=== PATIENT | female | born 1985 | race Caucasian/White ===

== ENCOUNTER 2017-07-03 09:47 | Emergency (ER) | payer OTHER, SELFPAY | END 2017-07-03 10:39 | disposition home or self-care (01) | PROVIDERS: Emergency Provider Nurse Practitioner Family; Family Provider Family Medicine; Visit Provider Nurse Practitioner Family | DX: H57.8 Other specified disorders of eye and adnexa (principal) | CPT/HCPCS: 99201 ==

== ENCOUNTER 2021-03-02 18:49 | Emergency (ER) | payer BC, SELFPAY ==
[2021-03-02 18:50] VITALS: BP 140/72; PULSE 88; RESP 20; TEMP 36.7; O2SAT 100; BMI 16.7
--- NOTE | 2021-03-02 19:55 | HMH.EDUTC ---
[facility] [place] Disposition Clinical Impression: Exposure to COVID-19 virus Disposition: Home, Self-Care Condition on Discharge: Good Instructions: DI for COVID-19 (Suspected or Confirmed ), Preventing the Spread of Coronavirus Discharge Instructions Additional Instructions: Drink plenty of fluids. Take tylenol for pain or fever. Return if you begin to have difficulty breathing. Follow up with your regular doctor. GO TO THE ER FOR ANY WORSENING SYMPTOMS Quarantine until you know the results of your covid-19 test. If it is positive, the health department should call you and give you further instructions about your length of Quarantine and other things. Notify your school or workplace of your results and follow their instructions regarding return to work/school. Referrals: Inge Daniels MD [Primary Care Provider] - Time of Disposition: 19:56 Medical Decision Making - Medical Records Medical records reviewed: No: I reviewed the patient's medical records. - Faizan Inquiry Pt receiving controlled substance: No Vital Signs: 03/02/21 18:50 03/02/21 20:03 Temperature 98.1 F 98.1 F Temperature Source Oral Oral Pulse Rate 88 Pulse Rate [Left Radial] 88 Respiratory Rate 20 16 Blood Pressure 140/72 Blood Pressure [Right Arm] 140/72 Blood Pressure Mean [Right Arm] 94 Blood Pressure Source Automatic Cuff Blood Pressure Source [Right Arm] Automatic Cuff Blood Pressure Position Sitting Blood Pressure Position [Right Arm] Sitting 02 Sat by Pulse Oximetry 100 Oxygen Delivery Method Room Air Room Air [facility] [place] HPI - General Stated complaint: covid test Time Seen by Provider: 03/02/21 19:55 Mode of Arrival: Ambulatory Source of Information: Patient Limitations: No Limitations Description of Symptoms (Recalled from Triage Doc. by RN): covid exposure, no symptoms HEENT Symptoms (Recalled from RN notes): No Resp Symptoms (Recalled from RN notes): No Skin Symptoms (Recalled from RN notes): No MS Symptoms (Recalled from RN notes): No Functional Status (Recalled from RN notes): wnl - History of Present Illness Provider Complaint: She was exposed to covid 3 days ago by her being around her mother and then her mother got sick with it. She denies any symptoms - Related Data Home Medications Medication Instructions Recorded Confirmed duloxetine 60 mg capsule,delayed 60 mg PO ONCE 09/08/17 08/07/18 release Previous Rx's Medication Instructions Recorded Azithromycin [Z-Sundeep 250mg Tab*] 250 mg PO UD DOSE PK #6 tab 08/07/18 Ibuprofen [Ibuprofen 600mg 600 mg PO Q6HP PRN #30 tab 08/07/18 Tablet] Ondansetron [Zofran 4mg ODT] 4 mg PO Q8HP PRN #20 tab.rapdis 08/07/18 Azithromycin [Z-Sundeep 250mg Tab*] 250 mg PO UD DOSE PK #6 tab 01/05/19 methylPREDNISolone [Medrol] 4 mg PO DIRECTED 6 Days #21 01/05/19 tab.ds.pk Nitrofurantoin Monohyd/M-Cryst 100 mg PO BID #20 cap 02/14/19 [Macrobid 100 mg Capsule] Phenazopyridine HCl [Pyridium 200 pow PO TID #6 tab 02/14/19 200mg Tablet] Allergies Allergy/AdvReac Type Severity Reaction Status Date / Time No Known Allergies Allergy Verified 04/06/18 08:19 - Worker's Comp Is this a Worker's Comp case?: No [facility] History - Hepatitis A Screen Drug use history?: No High risk sexual behaviors?: No History of sexually transmitted infection?: No Currently employed?: No Childcare worker?: No Do you have indoor plumbing?: Yes Do you have electricity?: Yes Attestation statement:: This patient has been screened for Hepatitis A risk factors. I have reviewed the patient's past medical history: Yes Medical History: Reports:: Anxiety Denies:: Asthma, Cancer, Depression, Diabetes Mellitus Type 1, Diabetes Mellitus Type 2, MRSA Other Surgeries: Yes: , Other Amputation: No Fractures: No Comment: 2 breast biopsy - Social History Smoking Status: Current every day smoker Tobacco Type: cigarettes # Packs/Day (cigarettes): 1
[2021-03-02 20:03] VITALS: BP 140/72; PULSE 88; RESP 16; TEMP 36.7; O2SAT 98
== END 2021-03-02 20:04 | disposition home or self-care (01) ==
PROVIDERS: Emergency Provider Nurse Practitioner Family; PCP Family Medicine
DX: Z20.822 Contact with and (suspected) exposure to COVID-19 (principal); F41.9 Anxiety disorder, unspecified; F17.210 Nicotine dependence, cigarettes, uncomplicated
CPT/HCPCS: 99202; G0463; U0003

== ENCOUNTER → 2021-12-04 13:04 | Outpatient (CLI) | payer BC, SELFPAY ==
--- NOTE | 2021-12-04 13:04 | MM_ITS ---
PROCEDURE INFORMATION: Exam: US Left Breast, Complete MG Bilateral Diagnostic Breast Tomosynthesis Exam date and time: 12/04/2021 1:09 PM Age: 36 years old Clinical indication: Concern for left palpable area. History of bilateral benign surgical excisions. 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 Family history of a paternal aunt with breast cancer. TECHNIQUE: Imaging protocol: Complete ultrasound of all four quadrants of the Left breast and the retroareolar regions, including ultrasound of the axilla when performed. Bilateral Diagnostic tomosynthesis and 2D mammography including computer-aided detection (CAD) when performed. Unilateral or bilateral exam. Triangular skin marker at the palpable region in the left breast with spot compression added. COMPARISON: 1. MG DMDXUR DIG MAMM-DX UNI-RT 12/31/2015 2:39 PM 2. MG DMDXUR DIG MAMM-DX UNI-RT 12/04/2015 2:47 PM 3. MTWCR US MAMMOTOME W/CLIP RT BREAST 12/31/2015 1:18 PM 4. BR US BREAST-RT COMPLETE W/AXILLA 12/04/2015 3:03 PM FINDINGS: MAMMOGRAPHY: Breast composition: The breasts are heterogeneously dense, which may obscure small masses. Mass: Corresponding to the palpable finding is a lobulated 4.5 mass in the left breast, approximately 6 o'clock, middle 3rd, partly visualized sent to dense mammographic background. Architectural distortion: None. Calcifications: No suspicious calcifications. Asymmetric density: None. Skin thickening: None. Axillary adenopathy: None. Other: Right biopsy clip. ULTRASOUND: Left sonography, all 4 quadrants, retroareolar and axilla. Corresponding to the palpable area at 6 o'clock 5 cm from the nipple, lobulated solid mass measuring 1.9 x 1.2 x 1.5 cm, which correlates to but appears smaller than the mammographic finding. 1 o'clock 6 cm from the nipple, oval solid mass measuring 0.8 x 0.4 x 0.8 cm. 1 o'clock 6 cm from the nipple, rounded mildly complicated cyst versus solid mass measuring 0.4 x 0.4 by 0.7 cm. 2 o'clock 7 cm from the nipple, oval mildly complicated cyst versus solid mass measuring 0.4 x 0.3 by 0.4 cm. 3 o'clock 3 cm from the nipple, mildly complicated cyst measuring 0.5 x 0.2 x 0.7 cm. Retroareolar, 0.7 cm cyst. Axilla, sonographically unremarkable axillary lymph node. IMPRESSION: Suggest ultrasound-guided biopsy of the lobulated solid 1.9 cm mass in the right breast at 6 o'clock, corresponding to the palpable finding, with correlation to verify that the ultrasound placed clip corresponds to the mammographic mass. Suggest six-month follow-up probably benign sonographic findings, on the left at 1, 2, and 3 o'clock axes, unless otherwise clinically indicated. ASSESSMENT: BI-RADS Category 4: Suspicious
== END ==
PROVIDERS: PCP Family Medicine; Visit Provider Surgery
DX: N63.20 Unspecified lump in the left breast, unspecified quadrant (principal); N63.0 Unspecified lump in unspecified breast
CPT/HCPCS: 76641; 77062; 77066; G0279

== ENCOUNTER → 2022-01-20 07:56 | Outpatient (CLI) | payer BC, SELFPAY ==
--- NOTE | 2022-01-20 07:56 | US_ITS ---
FINAL REPORT CLINICAL HISTORY: LT BR BX; 600 FINDINGS: ULTRASOUND-GUIDED LEFT BREAST CORE BIOPSY TECHNIQUE: Limited images were obtained to localize region of interest. Lesion of interest was identified at 6:00 corresponding to a 1.5 cm mass. The left breast was prepped in a routine sterile fashion and locally anesthetized with 1% lidocaine. Standard written informed consent was obtained. The biopsy needle was positioned within the outer periphery of the lesion. A total of 4 passes were made with a 18 gauge core biopsy needle. A biopsy marker clip was deployed in satisfactory position. Postbiopsy mammogram showed postbiopsy changes with clip in satisfactory position. Procedure was well tolerated . CONCLUSION: 1. Technically successful ultrasound guided core biopsy of left breast lesion as above. 2. Biopsy marker clip deployed Authenticated and ERN
--- NOTE | 2022-01-20 08:10 | MM_ITS ---
FINAL REPORT CLINICAL HISTORY: . clip placement , s/p biopsy FINDINGS: MAMMOGRAM LEFT TECHNIQUE: Standard digital 2-D views COMPARISON: None DENSITY: There are scattered areas of fibroglandular density FINDINGS: Post biopsy marker clip is noted to be in satisfactory position within mass of the left breast at 6:00.. Postbiopsy changes are noted. IMPRESSION: Biopsy marker clip in good position RECOMMENDATION: Pending histopathology evaluation. If histopathology results are benign, six-month sonographic and mammographic follow-up recommended. Authenticated and ERN
== END ==
PROVIDERS: PCP Family Medicine; Visit Provider Surgery
DX: N63.25 Unspecified lump in the left breast, overlapping quadrants (principal)
CPT/HCPCS: 19083; 77065

== ENCOUNTER 2022-02-01 08:01 | Emergency (ER) | payer BC, SELFPAY ==
[2022-02-01 08:05] VITALS: BP 106/65; PULSE 84; RESP 16; TEMP 36.8; O2SAT 97; BMI 25.8
--- NOTE | 2022-02-01 08:24 | HMH.EDUTC ---
[facility] [place] Disposition Clinical Impression: Strep pharyngitis Disposition: Home, Self-Care Condition on Discharge: Good Instructions: Sore Throat, DI for Fever (Symptom) -- Adult Additional Instructions: *Monitor Temp, Over the counter Motrin or Tylenol as directed/as needed Tylenol every 4 hours and Motrin every 6 hours (as long as your family doctor has told you that you can take it) for fever or pain. and straight to ER if unable to lower temp less than 101.0 after medication given *Warm salt water gargles may help to soothe the throat *Throat Lozenges *Warm fluids like tea with honey may help to soothe the throat *Sleep elevated *Humidifier/Vaporizer Follow up IMMEDIATELY for new or worsening symptoms or no Noticeable improvement over the next 48-72 hours. 911 for difficulty breathing or swallowing You were tested for today for COVID19 your test result should be back in the next 24-48 hours, you may check your results on the [facility] My Health Portal Make sure to take your Vitamins Vit. C Vit D and Zinc if you can take them Prescriptions: Cefdinir [Omnicef 300mg Capsule] 300 mg PO BID #20 cap Transmission Status: Pending to [id number] Referrals: Inge Daniels MD [Primary Care Provider] - As needed Forms: Work/School Release Time of Disposition: 08:55 Medical Decision Making - Faizan Inquiry Pt receiving controlled substance: No Faizan was queried for this patient: No Vital Signs: 02/01/22 08:05 Temperature 98.3 F Temperature Source Oral Pulse Rate [Right Brachial] 84 Respiratory Rate 16 Blood Pressure [Right Arm] 106/65 L Blood Pressure Mean [Right Arm] 78 Blood Pressure Source [Right Arm] Automatic Cuff Blood Pressure Position [Right Arm] Sitting 02 Sat by Pulse Oximetry 97 Oxygen Delivery Method Room Air - Lab Data Lab results reviewed: Yes: I reviewed the patient's lab results. Lab Results 02/01/22 08:29: Strep Scn Rapid Clinic Positive A Orders (Tests/Meds): ORDERS Category Date Time Status Covid-19 Nasal PCR ([facility]) Routine Lab 02/01/22 08:08 Received [facility] [place] HPI - General Stated complaint: fever,body aches,headache Time Seen by Provider: 02/01/22 08:24 Mode of Arrival: Ambulatory Source of Information: Patient Limitations: No Limitations Description of Symptoms (Recalled from Triage Doc. by RN): PATIENT C/O BODY ACHES AND FEVER SINCE YESTERDAY HEENT Symptoms (Recalled from RN notes): No Resp Symptoms (Recalled from RN notes): No Skin Symptoms (Recalled from RN notes): No MS Symptoms (Recalled from RN notes): No Functional Status (Recalled from RN notes): WNL - History of Present Illness Provider Complaint: Patient states that she started feeling bad yesterday States that she started with bodyaches, sore throat, headache, chills and fever last night that hit her suddenly States that she got up this morning and wasnt feeling any better so she came in to get tested for strep and COVID - Related Data Home Medications Medication Instructions Recorded Confirmed dupilumab 300 mg/2 mL subcutaneous 300 mg SQ ONCE ml 11/24/21 02/01/22 syringe Previous Rx's Medication Instructions Recorded Cefdinir [Omnicef 300mg Capsule] 300 mg PO BID #20 cap 02/01/22 Allergies Allergy/AdvReac Type Severity Reaction Status Date / Time No Known Allergies Allergy Verified 12/15/21 10:14 - Worker's Comp Is this a Worker's Comp case?: No [facility] History - Hepatitis A Screen Attestation statement:: This patient has been screened for Hepatitis A risk factors. I have reviewed the patient's past medical history: Yes Medical History: Reports:: Anxiety Denies:: Asthma, Cancer, Depression, Diabetes Mellitus Type 1, Diabetes Mellitus Type 2, MRSA Other Surgeries: Yes: , Other Amputation: No Fractures: No Comment: 2 breast biopsy - Social History Smoking Status: Current every day smoker Tobacco Type: cigarettes # Packs/Day (cigarettes): 1 #Yr
[2022-02-01 08:39] LABS: UTC Strep Screen (Rapid) Positive (Negative)
[2022-02-01 08:50] VITALS: BP 106/65; PULSE 84; RESP 16; TEMP 36.8; O2SAT 97
== END 2022-02-01 08:58 | disposition home or self-care (01) ==
PROVIDERS: Emergency Provider Nurse Practitioner; PCP Family Medicine
DX: J02.9 Acute pharyngitis, unspecified (principal); U07.1 COVID-19
CPT/HCPCS: 87880; 99212; C9803; G0463; U0003; U0005

== ENCOUNTER → 2022-07-26 12:43 | Outpatient (CLI) | payer BC, SELFPAY ==
--- NOTE | 2022-07-26 12:43 | US_ITS ---
PROCEDURE INFORMATION: Exam: US Left Breast, Complete MG Left Diagnostic Breast Tomosynthesis Exam date and time: 07/26/2022 1:03 PM Age: 37 years old Clinical indication: Short-term radiographic followup; Left breast; masses TECHNIQUE: Imaging protocol: Complete ultrasound of all four quadrants of the Left breast and the retroareolar regions, including ultrasound of the axilla when performed. Left Diagnostic tomosynthesis and 2D mammography including computer-aided detection (CAD) when performed. Unilateral or bilateral exam. COMPARISON: US BIOPSY BREAST LT 01/20/2022 7:58 AM FINDINGS: MAMMOGRAPHY: The breast is heterogeneously dense, which may obscure small masses. There is no stellate mass, architectural distortion or suspicious microcalcifications to suggest malignancy. No skin thickening or axillary adenopathy. ULTRASOUND: Sonographic images of the left breast demonstrate the following: A stable ovoid solid mass in the 1 o'clock axis 2 cm from the nipple measuring 0.8 x 0.4 x 0.8 cm, underlying scattered subcentimeter cysts, interval enlargement of a biopsied left 6 o'clock axis mass 5 cm from the nipple previously 1.9 x 1.2 x 1.5 cm currently 2.7 x 1.8 by 2.1 cm. Mixed solid and cystic mass in the upper inner quadrant, 11 o'clock axis 2 cm from the nipple, measuring 0.7 x 0.3 x 0.7 cm, new compared to prior sonographic examination. No axillary adenopathy IMPRESSION: 1. Interval enlargement of a previously biopsied left 6 o'clock axis mass. Consideration is made for repeat biopsy to ensure a benign etiology. Surgical consultation may prove useful. 2. Interval development of a new but probably benign mass in the left upper inner quadrant for which a targeted left breast ultrasound is recommended in 6 months to ensure stability over time. 3. Stable left 1 o'clock axis subcentimeter solid mass compared to prior ultrasound dated 12/04/2021. A six-month follow-up targeted left breast ultrasound is recommended to ensure ongoing stability ASSESSMENT: BI-RADS Category 4: Suspicious
== END ==
PROVIDERS: PCP Family Medicine; Visit Provider Surgery
DX: N63.22 Unspecified lump in the left breast, upper inner quadrant (principal)
CPT/HCPCS: 76641; 77061; 77065; G0279

== ENCOUNTER → 2022-08-09 11:04 | Outpatient (CLI) | payer BC, SELFPAY ==
[2022-08-09 12:09] LABS: Basophils # 0.2 K/mm3 (0-0.2); Eosinophils # 0.3 K/mm3 (0.0-0.4); Eosinophils % 6.9 % (0.1-12.0); Hematocrit 38.6 % (37.0-47.0); Hemoglobin 12.3 g/dL (12.2-16.2); Lymphocytes # 1.2 K/mm3 (0.7-4.5); Lymphocytes % 24.9 % (10-50); Mean Corpuscular HGB Conc 31.9 g/dL (31.8-35.4); Mean Corpuscular Hemoglobin 25.3 pg (27.0-31.2); Mean Corpuscular Volume 79.1 fl (81-99); Mean Platelet Volume 7.9 fl (7.4-10.4); Monocytes # 0.3 K/mm3 (0.1-1.0); Monocytes % 5.5 % (1.7-9.3); Neutrophils # 2.9 K/mm3 (1.8-7.8); Neutrophils % 59.6 % (37.0-80.0); Platelet Count 367 K/mm3 (142-424); Red Blood Count 4.88 M/mm3 (4.20-5.40); Red Cell Distribution Width 16.7 % (11.5-17.5); White Blood Count 4.9 K/mm3 (4.8-10.8)
[2022-08-09 12:40] LABS: Chloride 107 mmol/L (98-107)
[2022-08-09 12:41] LABS: Potassium 4.8 mmoL/L (3.5-5.1); Sodium 140 mmol/L (136-145)
[2022-08-09 12:44] LABS: Anion Gap 14.8 mEq/L (5-15); Blood Urea Nitrogen 9 mg/dl (7-17); Calcium 8.8 mg/dl (8.4-10.2); Carbon Dioxide 23 mmol/L (22.0-30.0); Estimated Glomerular Filt Rate 112 ml/min (>60); GFR (African American) 136 ML/MIN (>60); Glucose 75 mg/dl (74-100)
== END ==
PROVIDERS: PCP Family Medicine; Visit Provider Surgery
DX: N63.20 Unspecified lump in the left breast, unspecified quadrant (principal); Z01.812 Encounter for preprocedural laboratory examination
CPT/HCPCS: 36415; 80048; 85025

== ENCOUNTER 2022-08-23 07:09 | Day surgery (SDC) | payer BC, SELFPAY ==
[2022-08-19 10:00] VITALS: BMI 27.3
[2022-08-23] VITALS (11 sets, daily range): BP systolic 102–118; BP diastolic 8–81; PULSE 62–95; RESP 16–24; TEMP 36.2–43; O2SAT 92–100
[2022-08-23 07:28] LABS: Urine Pregnancy, HCG Qual. Negative (Negative)
--- NOTE | 2022-08-23 08:03 | P.PN_ITS ---
[facility] Disclaimer: The information contained in this section may have been updated after the patient was seen, as this information can be updated by other users. Medical History No significant past medical history Surgical History History of breast biopsy History of section Family History Other Family history of Crohn's disease Family history of lupus Social History Smoking Status: Current every day smoker tobacco type: cigarettes packs per day: 1 and e-cigarettes second hand exposure: Yes alcohol intake: current substance use type: denies use current occupational status: other Travel in the last 8 weeks: None household members: family current occupational exposures/hazards: No [facility] Anesthesia Checklist Patient Identification Patient Identification: Arm Band and Verbal (Name & ) Structural Data Admitted From: Home Planned Operative Procedure/s: Excision of breast mass Consent for Planned Operative Procedure(s) Verified: Yes NPO Status Verified Time NPO: 00:00 Chart Verification Results Verified: HCG Additional verifications Anesthesia Reactions: No Hx Blood Transfusions: No Blood Transfusion Reaction: No Airway Assessment C-Spine Mobility Assessed: Yes TMJ Mobility Assessed: Yes Dentition: Good Dentition Neurological Assessment Level of Consciousness: Awake Hx Seizures: No Numbness or tingling in extremities: No Anesthesia Plan Anesthesia Risk discussed: Yes Anesthesia Plan: Verified ASA Class: I Anesthesia Type: General
--- NOTE | 2022-08-23 09:41 | EXP.OP.NOTE ---
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 She does have somewhat of a family history of breast cancer with her paternal aunt having breast cancer.? I saw her in late November 2021 at which time she had noticed a palpable abnormality in the left breast.? I had her undergo imaging and this revealed a lobulated solid lesion measuring about 1.9 cm and given a BI-RADS 4 classification.? She did undergo radiology directed biopsy which revealed scant cores of fibroepithelial lesion favor fibroadenoma.? Radiology has recommended a possible 6-month follow-up.? She has been followed regularly in the office.? Initially the area after biopsy was relatively nonpalpable.? Follow-up several weeks ago revealed more prominent lesion on examination.? I discussed possible excision versus following radiology's recommendations for follow-up imaging.? She elected to proceed with follow-up imaging.? Follow-up imaging reveals interval enlargement of previously biopsied lesion.? This is given a BI-RADS 4 classification and consideration was given for possible repeat biopsy.? Incidentally there is development of probably benign mass in the left upper inner quadrant and radiology recommends targeted left breast ultrasound in 6 months to ensure stability. Operative findings:: Consistent with some fibrocystic change and relatively rubbery mass likely consistent with fibroadenoma. Operative note:: Patient was taken to the operating room. She was given preoperative intravenous antibiotics. In the operating room she was placed in a supine position. General anesthesia was induced via LMA. The area was easily palpable in the inferior left breast. Lesion was marked and skin was marked for planned excision along normal skin lines. Skin incision was performed. Dissection was carried out around the mass using electrocautery. Centrally the mass was somewhat rubbery in consistency. There was some surrounding tissue consistent with fibrocystic change. Dissection was carried out around the lesion with grossly negative margins. The specimen was marked with a short suture superiorly and a long suture laterally with a clip placed superficially. Wound was irrigated. Local anesthetic was infiltrated. Hemostasis was achieved with electrocautery. Subdermal tissues were closed with interrupted 3-0 Vicryl. Skin was closed with 4-0 Monocryl in a subcuticular fashion. Dermabond and dressings were applied. Condition: stable Disposition: PACU Complications:: None immediately apparent
--- NOTE | 2022-08-23 09:58 | EXP.ANES.I ---
[facility] Anesthesia Record Part I Anesthesia Record I Intake, IV Amount: 650 Estimated blood loss (mL): 2 Urine output (mL): 0 Blood Products used (#): none Blood Pressure: 118/8 SaO2: 92 Pulse Rate: 95 Respiratory Rate: 24 Temperature: 97.5 F Patient is:: Drowsy and Stable Stable to PACU at:: 09:48
--- NOTE | 2022-08-23 13:20 | EXP.ANES.II ---
[facility] Anesthesia Record Part II Anesthesia Record Part II Discharge Time: 10:18 Destination: Surgical Day Care (OP Surgery) PACU nurse assessment reviewed?: Yes Patient Condition:: Good Anesthesia Complications:: None Swallowing reflex intact?: Yes Cyanosis?: No Blood Pressure: 107/68 Pulse Rate: 71 Temperature: 98 F Mental Status: Alert & Oriented Pain level:: 0 Nausea and/or vomitting:: None Intake, IV Amount: 0
== END 2022-08-23 10:49 | disposition home or self-care (01) ==
PROVIDERS: PCP Family Medicine; Visit Provider Surgery
PROC: (CPT 19120; principal; 2022-08-23 08:45)
DX: D24.2 Benign neoplasm of left breast (principal); F17.210 Nicotine dependence, cigarettes, uncomplicated; Z79.899 Other long term (current) drug therapy; Z80.3 Family history of malignant neoplasm of breast
CPT/HCPCS: 19120; 81025; 88305; 96374; J2405

== ENCOUNTER → 2022-11-01 08:59 | Outpatient (CLI) | payer BC, SELFPAY ==
[2022-11-01 09:38] LABS: Eosinophils # 0.3 K/mm3 (0.0-0.4); Eosinophils % 6.8 % (0.1-12.0); Hematocrit 35.2 % (37.0-47.0); Hemoglobin 11.1 g/dL (12.2-16.2); Lymphocytes # 1.3 K/mm3 (0.7-4.5); Lymphocytes % 29.5 % (10-50); Mean Corpuscular HGB Conc 31.6 g/dL (31.8-35.4); Mean Corpuscular Hemoglobin 25.2 pg (27.0-31.2); Mean Corpuscular Volume 79.9 fl (81-99); Mean Platelet Volume 8.4 fl (7.4-10.4); Monocytes # 0.3 K/mm3 (0.1-1.0); Monocytes % 7.4 % (1.7-9.3); Neutrophils # 2.4 K/mm3 (1.8-7.8); Neutrophils % 55.2 % (37.0-80.0); Platelet Count 329 K/mm3 (142-424); Red Cell Distribution Width 16.6 % (11.5-17.5); White Blood Count 4.3 K/mm3 (4.8-10.8)
[2022-11-01 11:10] LABS: Potassium 4.7 mmoL/L (3.5-5.1); Sodium 137 mmol/L (136-145)
[2022-11-01 11:12] LABS: Alanine Aminotransferase 25 U/L (12-78); Blood Urea Nitrogen 12 mg/dl (7-17); Estimated Glomerular Filt Rate 112 ml/min (>60); GFR (African American) 136 ML/MIN (>60)
[2022-11-01 11:13] LABS: Albumin Level 3.8 g/dl (3.5-5.0); Albumin/Globulin Ratio 1.5 (1.1-1.8); Alkaline Phosphatase 65 U/L (38-126); Aspartate Amino Transferase 32 U/L (14-36); Bilirubin,Total 0.3 mg/dl (0.2-1.3); Calcium 8.5 mg/dl (8.4-10.2); Carbon Dioxide 23 mmol/L (22.0-30.0); Globulin 2.6 g/dL (1.3-3.2); Glucose 69 mg/dl (74-100); Total Protein,Serum 6.4 g/dl (6.3-8.2)
[2022-11-01 12:04] LABS: Anion Gap 11.7 mEq/L (5-15); Chloride 107 mmol/L (98-107)
[2022-11-01 14:44] LABS: Folate > 20.00 ng/mL
== END ==
PROVIDERS: PCP Family Medicine; Visit Provider Internal Medicine Rheumatology
DX: M79.18 Myalgia, other site (principal); E53.8 Deficiency of other specified B group vitamins; R53.83 Other fatigue; L30.9 Dermatitis, unspecified; L65.9 Nonscarring hair loss, unspecified
CPT/HCPCS: 36415; 80053; 82746; 85025

== ENCOUNTER → 2022-11-16 08:05 | Outpatient (CLI) | payer BC, SELFPAY ==
[2022-11-16 08:51] LABS: Basophils # 0.1 K/mm3 (0-0.2); Basophils % 1.3 % (0.1-2.0); Eosinophils # 0.3 K/mm3 (0.0-0.4); Eosinophils % 5.8 % (0.1-12.0); Hematocrit 36.7 % (37.0-47.0); Hemoglobin 11.4 g/dL (12.2-16.2); Lymphocytes # 1.2 K/mm3 (0.7-4.5); Mean Corpuscular HGB Conc 31.2 g/dL (31.8-35.4); Mean Corpuscular Hemoglobin 24.9 pg (27.0-31.2); Mean Corpuscular Volume 79.9 fl (81-99); Mean Platelet Volume 7.9 fl (7.4-10.4); Monocytes # 0.3 K/mm3 (0.1-1.0); Monocytes % 6.6 % (1.7-9.3); Neutrophils # 2.8 K/mm3 (1.8-7.8); Neutrophils % 60.3 % (37.0-80.0); Platelet Count 346 K/mm3 (142-424); Red Blood Count 4.59 M/mm3 (4.20-5.40); Red Cell Distribution Width 16.6 % (11.5-17.5); White Blood Count 4.7 K/mm3 (4.8-10.8)
[2022-11-16 09:50] LABS: Chloride 98 mmol/L (98-107); Potassium 4.8 mmoL/L (3.5-5.1); Sodium 137 mmol/L (136-145)
[2022-11-16 09:53] LABS: Alanine Aminotransferase 30 U/L (12-78); Albumin/Globulin Ratio 1.6 (1.1-1.8); Alkaline Phosphatase 76 U/L (38-126); Anion Gap 16.8 mEq/L (5-15); Aspartate Amino Transferase 35 U/L (14-36); Bilirubin,Total 0.2 mg/dl (0.2-1.3); Blood Urea Nitrogen 9 mg/dl (7-17); Calcium 8.7 mg/dl (8.4-10.2); Carbon Dioxide 27 mmol/L (22.0-30.0); Cholesterol 131 mg/dl (140-200); Estimated Glomerular Filt Rate 139 ml/min (>60); GFR (African American) 168 ML/MIN (>60); Globulin 2.5 g/dL (1.3-3.2); Glucose 75 mg/dl (74-100); Total Protein,Serum 6.5 g/dl (6.3-8.2); Triglycerides 70 mg/dl (30-150); VLDL Cholesterol 14 mg/dL (0-40)
[2022-11-16 09:54] LABS: HDL Cholesterol 43 mg/dl (40-60)
[2022-11-16 10:04] LABS: Direct LDL Cholesterol 82.08 mg/dL (100-129)
[2022-11-17 09:28] LABS: HIV Screen 4th Generation wRfx Non Reactive (Non Reactive)
[2022-11-17 13:58] LABS: HBsAg Screen Negative (Negative); Hep A Ab, IGM Negative (Negative); Hep B Core Ab, IgM Negative (Negative)
[2022-11-18 20:09] LABS: QuantiFERON-TB Gold Plus Negative (Negative)
== END ==
PROVIDERS: PCP Family Medicine; Visit Provider Dermatology
DX: L20.89 Other atopic dermatitis (principal); Z79.899 Other long term (current) drug therapy
CPT/HCPCS: 36415; 80053; 80061; 80074; 85025; 86480; 86703; G0432

== ENCOUNTER → 2022-12-10 09:07 | Outpatient (CLI) | payer BC, SELFPAY ==
--- NOTE | 2022-12-10 09:19 | MM_ITS ---
PROCEDURE INFORMATION: Exam: MG Bilateral Screening 3D Mammography Exam date and time: 12/10/2022 9:19 AM Age: 37 years old Clinical indication: Screening examination. Interval benign left surgical excision. TECHNIQUE: Imaging protocol: Bilateral Screening tomosynthesis and 2D mammography including computer-aided detection (CAD) when performed. COMPARISON: 1. MG MM DIG MAMM DX UNILAT LT CAD 07/26/2022 1:19 PM 2. MG MM CLIP PLACEMENT LT 01/20/2022 8:47 AM 3. MG MM DIG MAMM BI DX W/CAD 12/04/2021 1:09 PM 4. MG DMDXUR DIG MAMM-DX UNI-RT 12/31/2015 2:39 PM FINDINGS: MAMMOGRAPHY: Breast composition: The breasts are heterogeneously dense, which may obscure small masses. Mass: None. Architectural distortion: Interval architectural distortion left 6 o'clock post benign excisional biopsy. Calcifications: No suspicious calcifications. Asymmetric density: None. Skin thickening: None. Axillary adenopathy: None. Other: Right biopsy clip. IMPRESSION: See comment No mammographic evidence of malignancy. Annual screening is recommended unless otherwise clinically indicated. Continued 6 month follow-up - due January 2023, for left breast mass upper outer quadrant and continued six-month follow-up left breast 1 o'clock solid mass, followed since 12/04/2021 - as indicated in sonography report from 07/26/2022. ASSESSMENT: BI-RADS Category 2: Benign
[2022-12-10 09:43] LABS: Basophils # 0.1 K/mm3 (0-0.2); Basophils % 1.1 % (0.1-2.0); Eosinophils # 0.3 K/mm3 (0.0-0.4); Eosinophils % 4.9 % (0.1-12.0); Hematocrit 36.2 % (37.0-47.0); Hemoglobin 11.3 g/dL (12.2-16.2); Lymphocytes # 1.9 K/mm3 (0.7-4.5); Lymphocytes % 28.7 % (10-50); Mean Corpuscular HGB Conc 31.2 g/dL (31.8-35.4); Mean Corpuscular Hemoglobin 24.8 pg (27.0-31.2); Mean Corpuscular Volume 79.5 fl (81-99); Mean Platelet Volume 8.1 fl (7.4-10.4); Monocytes # 0.4 K/mm3 (0.1-1.0); Monocytes % 5.8 % (1.7-9.3); Neutrophils % 59.5 % (37.0-80.0); Platelet Count 424 K/mm3 (142-424); Red Blood Count 4.56 M/mm3 (4.20-5.40); Red Cell Distribution Width 16.5 % (11.5-17.5); White Blood Count 6.7 K/mm3 (4.8-10.8)
[2022-12-10 10:24] LABS: Alanine Aminotransferase 29 U/L (12-78); Albumin Level 3.6 g/dl (3.5-5.0); Albumin/Globulin Ratio 1.4 (1.1-1.8); Alkaline Phosphatase 60 U/L (38-126); Aspartate Amino Transferase 30 U/L (14-36); Bilirubin,Total 0.2 mg/dl (0.2-1.3); Blood Urea Nitrogen 10 mg/dl (7-17); Calcium 8.5 mg/dl (8.4-10.2); Carbon Dioxide 26 mmol/L (22.0-30.0); Chloride 104 mmol/L (98-107); Estimated Glomerular Filt Rate 139 ml/min (>60); GFR (African American) 168 ML/MIN (>60); Globulin 2.5 g/dL (1.3-3.2); Sodium 140 mmol/L (136-145); Total Protein,Serum 6.1 g/dl (6.3-8.2)
[2022-12-10 10:28] LABS: Glucose 48 mg/dl (74-100)
== END ==
PROVIDERS: PCP Family Medicine; Referring Provider Internal Medicine Rheumatology; Visit Provider Surgery
DX: Z12.31 Encounter for screening mammogram for malignant neoplasm of breast (principal); E53.8 Deficiency of other specified B group vitamins; L30.9 Dermatitis, unspecified; L65.9 Nonscarring hair loss, unspecified; M79.18 Myalgia, other site; R53.83 Other fatigue
CPT/HCPCS: 36415; 77063; 77067; 80053; 82746; 85025

== ENCOUNTER → 2023-01-15 10:54 | Outpatient (CLI) | payer BC, SELFPAY ==
[2023-01-15 11:15] LABS: Basophils # 0.1 K/mm3 (0-0.2); Basophils % 1.3 % (0.1-2.0); Eosinophils # 0.2 K/mm3 (0.0-0.4); Hematocrit 38.9 % (37.0-47.0); Lymphocytes # 1.1 K/mm3 (0.7-4.5); Lymphocytes % 25.5 % (10-50); Mean Corpuscular HGB Conc 30.9 g/dL (31.8-35.4); Mean Corpuscular Hemoglobin 24.3 pg (27.0-31.2); Mean Corpuscular Volume 78.5 fl (81-99); Mean Platelet Volume 7.7 fl (7.4-10.4); Monocytes # 0.3 K/mm3 (0.1-1.0); Monocytes % 7.4 % (1.7-9.3); Neutrophils # 2.7 K/mm3 (1.8-7.8); Neutrophils % 61.9 % (37.0-80.0); Platelet Count 304 K/mm3 (142-424); Red Blood Count 4.95 M/mm3 (4.20-5.40); White Blood Count 4.4 K/mm3 (4.8-10.8)
[2023-01-15 12:15] LABS: Alanine Aminotransferase 39 U/L (12-78); Albumin/Globulin Ratio 1.7 (1.1-1.8); Alkaline Phosphatase 64 U/L (38-126); Aspartate Amino Transferase 39 U/L (14-36); Bilirubin,Total 0.2 mg/dl (0.2-1.3); Blood Urea Nitrogen 15 mg/dl (7-17); Calcium 8.9 mg/dl (8.4-10.2); Carbon Dioxide 26 mmol/L (22.0-30.0); Chloride 108 mmol/L (98-107); Estimated Glomerular Filt Rate 112 ml/min (>60); GFR (African American) 135 ML/MIN (>60); Globulin 2.4 g/dL (1.3-3.2); Glucose 70 mg/dl (74-100); Sodium 140 mmol/L (136-145); Total Protein,Serum 6.4 g/dl (6.3-8.2)
== END ==
PROVIDERS: PCP Family Medicine; Visit Provider Internal Medicine Rheumatology
DX: E53.8 Deficiency of other specified B group vitamins (principal); L30.9 Dermatitis, unspecified; L65.9 Nonscarring hair loss, unspecified; M79.18 Myalgia, other site; R53.83 Other fatigue
CPT/HCPCS: 36415; 80053; 82746; 85025

== ENCOUNTER → 2023-06-13 12:44 | Outpatient (CLI) | payer BC, SELFPAY | PROVIDERS: PCP Family Medicine; Visit Provider Surgery | DX: D24.9 Benign neoplasm of unspecified breast (principal) ==

== ENCOUNTER → 2023-06-23 08:03 | Outpatient (CLI) | payer BC, SELFPAY ==
--- NOTE | 2023-06-23 08:04 | US_ITS ---
PROCEDURE INFORMATION: Exam: US Left Breast, Complete Exam date and time: 06/23/2023 8:16 AM Age: 38 years old Clinical indication: Left breast excision 6 o'clock axis. Short-term radiographic follow-up for additional sonographically detected left breast masses TECHNIQUE: Imaging protocol: Complete ultrasound of all four quadrants of the left breast and the retroareolar regions, including ultrasound of the axilla when performed. COMPARISON: US BREAST LT COMPLETE 07/26/2022 1:03 PM FINDINGS: Breast: Sonographic images of the left breast including the retroareolar region, all 4 quadrants and the axilla demonstrates a stable ovoid hypoechoic solid mass in the 1 o'clock axis 3 cm from the nipple measuring 0.8 x 0.8 x 0.4 cm. Stable hypoechoic mass in the deep left 1 o'clock axis 3 cm from the nipple measuring 0.4 x 0.5 x 0.4 cm. Benign 1.0 cm cyst in the left 3 o'clock periareolar region. Additional 0.4 cm left 4 o'clock axis cyst. 0.5 cm cyst in the left 11 o'clock periareolar region. Previously noted left 6 o'clock axis masses been removed. Benign postoperative scarring is noted. Interval decrease in size of the left 11 o'clock axis mass 2 cm from the nipple now measuring 0.4 x 0.3 cm. No architectural distortion or acoustical shadowing. No skin thickening or axillary adenopathy. IMPRESSION: 2 stable hypoechoic masses in the left 1 o'clock axis compared to sonogram dated 12/04/2021. A six-month follow-up targeted left breast ultrasound is recommended to ensure long-term stability. The patient is also due at that time for annual bilateral mammographic screening. ASSESSMENT: BI-RADS Category 3: Probably benign
== END ==
PROVIDERS: PCP Family Medicine; Visit Provider Surgery
DX: D24.2 Benign neoplasm of left breast (principal)
CPT/HCPCS: 76641

== ENCOUNTER 2023-09-29 15:51 | Outpatient (CLI) | payer BC, SELFPAY ==
[2023-09-29 16:16] LABS: Basophils # 0.1 K/mm3 (0-0.2); Basophils % 1.3 % (0.1-2.0); Eosinophils % 0.6 % (0.1-12.0); Hematocrit 43.3 % (37.0-47.0); Hemoglobin 13.4 g/dL (12.2-16.2); Lymphocytes # 0.7 K/mm3 (0.7-4.5); Mean Corpuscular Hemoglobin 28.2 pg (27.0-31.2); Mean Platelet Volume 8.2 fl (7.4-10.4); Monocytes # 0.2 K/mm3 (0.1-1.0); Monocytes % 1.9 % (1.7-9.3); Neutrophils # 6.8 K/mm3 (1.8-7.8); Neutrophils % 87.2 % (37.0-80.0); Platelet Count 326 K/mm3 (142-424); Red Blood Count 4.75 M/mm3 (4.20-5.40); Red Cell Distribution Width 14.3 % (11.5-17.5); White Blood Count 7.8 K/mm3 (4.8-10.8)
[2023-09-29 16:31] LABS: Chloride 104 mmol/L (98-107); Potassium 4.6 mmoL/L (3.5-5.1); Sodium 138 mmol/L (136-145)
[2023-09-29 16:32] LABS: MANUAL DIFFERENTIAL MANUAL DIFFERENTIAL (MANUAL DIFF)
[2023-09-29 16:33] LABS: Alanine Aminotransferase 28 U/L (12-78); Aspartate Amino Transferase 33 U/L (14-36); Blood Urea Nitrogen 11 mg/dl (7-17); Estimated Glomerular Filt Rate 112 ml/min (>60); GFR (African American) 135 ML/MIN (>60)
[2023-09-29 16:34] LABS: Albumin Level 4.3 g/dl (3.5-5.0); Albumin/Globulin Ratio 1.9 (1.1-1.8); Alkaline Phosphatase 72 U/L (38-126); Anion Gap 11.6 mEq/L (5-15); Bilirubin,Total 0.3 mg/dl (0.2-1.3); Calcium 9.3 mg/dl (8.4-10.2); Carbon Dioxide 27 mmol/L (22.0-30.0); Globulin 2.3 g/dL (1.3-3.2); Glucose 93 mg/dl (74-100); Total Protein,Serum 6.6 g/dl (6.3-8.2)
[2023-09-29 17:49] LABS: Eosinophils % 1 % (0-3); Lymphocytes % 10 % (10-50); Monocytes % 2 % (2-9); Neutrophils % 86 % (42-76); Platelet Estimate Normal; RBC Morphology Normal; Total Cells Counted 100
== END 2023-09-29 23:59 ==
LOC: LAB 15:52
PROVIDERS: PCP Family Medicine; Visit Provider Internal Medicine Rheumatology
DX: L30.9 Dermatitis, unspecified (principal); L65.9 Nonscarring hair loss, unspecified; M79.18 Myalgia, other site; R53.83 Other fatigue; R76.8 Other specified abnormal immunological findings in serum
CPT/HCPCS: 36415; 80053; 85007; 85025

== ENCOUNTER 2024-05-18 14:30 | Outpatient (CLI) | payer BC, SELFPAY ==
[2024-05-19 10:24] LABS: FSH 3.3 mIU/mL (.)
== END 2024-05-18 23:59 | disposition home or self-care (01) ==
PROVIDERS: PCP Family Medicine; Visit Provider Nurse Practitioner Obstetrics & Gynecology
DX: E34.9 Endocrine disorder, unspecified (principal)
CPT/HCPCS: 36415; 82670; 83001; 83002

== ENCOUNTER 2024-06-05 16:35 | Outpatient (CLI) | payer BC, SELFPAY ==
--- OUTSIDE RECORDS SUMMARY | 2024-06-05 16:37 | XMS_ITS ---
Author Organization [facility] Address [address] [facility] [address] [id number] Care Team Providers Care Writing Manager Name Role Phone Mario Daniels Primary Care Provider Chiquis Starr Unavailable [phone] ALLERGIES Allergen (clinical drug ingredient) Drug/Non Drug Allergy documented on EMR Reaction Allergy Type Onset Date Status triamcinolone Triamcinolone rash Drug Allergy Active RESULTS Component Value Reference Range Notes CBC Fingerstick (in house) Reviewed date:06/04/2024 07:28:45 [...] - 38 plat 263 100 - 400 REASON FOR REFERRAL Diagnosis 1 Abdominal pain (R10. 9) Referral Organization [facility] Referring Provider First Name Chiquis Referring Provider [...] Priority Routine REASON FOR VISIT stomach issues MEDICATIONS Medication SIG (Take, Route, Frequency, Duration) Notes Start Date End Date Status Hyoscyamine Sulfate 0.125 MG 1 tablet as needed Orally Four times a day 06/04/2024 Active Otezla 30 MG 1 tablet Orally Twic e a day for 30 day(s) Active CellCept 250 MG 4 caps daily A ctive VITAL SIGNS Weight 162.2 lbs 06/04/2024 Blood pressure systolic 104 mm Hg 06/04/20 24 Blood pressure diastolic 68 mm Hg 024 Heart Rate 85 /min 06/04/2024 Height 67.50 in 06/04/2024 BMI 25.03 kg/m2 06/04/2024 Encounters Encounter Location Date Provider Diagnosis [facility] [address] [facility] [address] [place], [place] [id number] 06/04/2024 Chiquis Starr Abdominal pain R10.9 ; Diarrhea R19.7 and Eczema, unspecified type L30.9 ASSESSMENTS Encounter Date Diagnosis Assessment Notes Treatment Notes Treatment Clinical Notes 06/04/2024 Abdominal pain (ICD-10 - R10.9) GI consult; suggested blnd diet and no Pop 06/04/2024 Diarrhea (ICD-10 - R19.7) will try levsin to see if this decreases diarrhea 06/04/2024 Eczema, unspecified type (ICD-10 - L30.9) PLAN OF TREATMENT Medication Medication Name Sig Start Date Stop Date Notes Hyoscyamine Sulfate 0.125 MG 1 tablet as needed Orally Four times a day 06/04/2024 Treatment Notes Assessment Notes Abdominal pain GI consult; suggeste d blnd diet and no Pop Diarrhea will try levsin to s ee if this decreases diarrhea Pending Test Test Name Order Date Complete Metabolic Profile 06/04/2024 TSH+Free T4 06/04/2024 Diarrhea Panel ([facility]) 06/04/2024 Referrals Referral Date Details [place] [facility] Next Appt Details Follow Up: will notify of te st results,and prn, Reason: Progress Notes * Examination Category Sub-Category Detail Notes General Examination Heart: RRR Lungs: CTAB A&P Abdomen: bowel sounds present , soft; tender left mid to lower quads, no organomegaly or masses, no guarding or rigidity Extremities: no leg edema General Appearance: NAD, appears healthy , alert, pleasant Neurologic Exam: alert and oriented History and Physical Notes * HPI (History of Present Illness) Category Sub-Category Detail Notes Gastroenterology Fever Vomiting Abdominal Pain lower abd Diarrhea Pt [...] gas pills Heartburn Dysphagia Acid Reflux Belching Consultation Request Notes Referral Date Referring Provider Referred Provider Not es 06/04/2024 Chiquis Starr EARL
--- OUTSIDE RECORDS SUMMARY | 2024-06-05 16:37 | XMS_ITS ---
Author Organization [place] Address [address] [facility] [address] [place] [id number] Care Team Providers Care Single Needle Tufting Machine Operator Name Role Phone Mario Daniels Primary Care Provider [phone] Chiquis Starr Unavailable [phone] Jasbir Garrison Unavailable [phone] ALLERGIES Allergen (clinical drug ingredient) Drug/Non Drug Allergy documented on EMR Reaction Allergy Type Onset Date Status triamcinolone Triamcinolone rash Drug Allergy Active REASON FOR VISIT hands swollen MEDICATIONS Medication SIG (Take, Route, Fr equency, Duration) Notes Start Date End Date Status dexAMETHasone 4 MG 1 tablet Orally Two times a day for 5 day(s) 10/31/2023 Active CellCept 250 MG 4 caps daily A ctive VITAL SIGNS Weight 167 lbs 10/31/2023 Blood pressure systolic 114 mm Hg 10/31/19 24 Blood pressure diastolic 76 mm Hg 024 Heart Rate 80 /min 10/31/2023 Height 67.50 in 10/31/2023 BMI 25.77 kg/m2 10/31/2023 Encounters Encounter Location Date Provider Diagnosis [facility] [address] [place] [id number] 10/31/2023 Jasbir Garrison Rash R21 ASSESSMENTS Encounter Date Diagnosis Assessment Notes Treatment Notes Treatment Clinical Notes 10/31/2023 Rash (ICD-10 - R21) Patient to see her biochemistry specialist in 2 days PLAN OF TREATMENT Medication Medication Name Sig Start Date Stop Date Notes dexAMETHasone 4 MG 1 tablet Orally Two times a day for 5 day(s) 10/31/2023 Treatment Notes Assessment Notes Rash Patient to see her d ermatologist in 2 days Next Appt Details Follow Up: via phone to repo rt progress, Reason: Progress Notes * Examination Category Sub-Category Detail Notes General Examination General Appearance: NAD Skin: fairly diffuse rash on hands, palms more effected, rough, dry skin, confluent on fingers History and Physical Notes * HPI (History of Present Illness) Category Sub-Category Detail Notes Dermatology rash blisters Pt complains of blis ters on both hands. States they have opened up and drained but pt still has some swelling, dryness and pain. Pt states she was diagnosed with Psoriatic Arthritis and is unsure if this is related
--- OUTSIDE RECORDS SUMMARY | 2024-06-05 16:38 | XMS_ITS ---
Author Organization [facility] Address [address] [place] [address] Care Team Providers Care Hotel Administrative Assistant Name Role Phone Luis Daniels MD Primary Care Provider Dermatology - External Fill Status:Disenrolled (Closed) Start date:11/03/2023 Enrollment date:11/03/2023 Enrollment reason:Referred by provider End date:12/09/2023 Close reason:No payer access Linked medications:Apremilast (Active) Linked problems:Psoriasis (Active) Continued Care and Services Coordination
--- OUTSIDE RECORDS SUMMARY | 2024-06-05 16:38 | XMS_ITS ---
Author Organization [place] Address [address] [facility] [address] [place] [id number] Care Team Providers Care Filtration Plant Mechanic Name Role Phone Mario Daniels Primary Care Provider [phone] Chiquis Starr Unavailable [phone] Beryl Purcell Unavailable [phone] MEDICATIONS Medication SIG (Take, Route, Frequency, Duration) Notes Start Date End Date Status Medrol 4 MG as directed orally daily for 6 days Active Encounters Encounter Location Date Provider Diagnosis [facility] [address] [place] [id number] 04/22/2023 Beryl Purcell PLAN OF TREATMENT Medication Medication Name Sig Start Date Stop Date Notes Medrol 4 MG as directed orally daily for 6 days 04/22/2023
--- OUTSIDE RECORDS SUMMARY | 2024-06-05 16:38 | XMS_ITS | Encounter Summary ---
Author Organization [facility] Address [address] [place] [phone] Care Team Providers Care Principal Trainer Name Role Phone Luis Daniels MD Primary Care Provider Reason for Visit * Reason Comments Stye Encounter Details Date Type Department Care Team (Late st Contact Info) Description 04/11/2018 12:45 PM EDT Office Visit [facility] [address] [place] [address] Hordeolum externum of left lower eyelid (Primary Dx) Social History Tobacco Use Types Packs/Day Years Used Date Smoking Tobacco: Every Day Cigarettes 0.5 10 Smokeless Tobacco: Never Alcohol Use Standard Drinks/Week Comments Yes 0 (1 standard drink = 0.6 oz pur e alcohol) social Comments No Sex and Gender Information Value Date Recorded Sex Assigned at Not on file Legal Sex Female 11:42 AM EST Gender Identity Not on file Sexual Orientation Not on file documented as of this encounter Last Filed Vital Signs Vital Sign Reading Time Taken Comments Blood Pressure - - Pulse 87 04/11/2018 12:53 PM EDT Temperature 36.3 ??C (97.4 ??F) 04/11/2018 12:53 PM E DT Respiratory Rate 14 04/11/2018 12:53 PM EDT Oxygen Saturation 98% 04/11/2018 12:53 PM EDT Inhaled Oxygen Concentration - - Weight 72.8 kg (160 lb 6.4 oz) 04/11/2018 12:53 PM EDT Height 172.7 cm (5' 8 ) 04/11/2018 12:53 PM EDT Body Mass Index 24.39 04/11/2018 12:53 PM EDT documented in this encounter Patient Instructions * Patient Instructions* SeraAlina hudsonKarineGERMAINE lugo - 04/11/2018 1:04 PM EDT Stye A stye is a bump on your eyelid caused by a bacterial infection. A stye can form inside the eyelid (internal stye) or outside the eyelid (external stye). An internal stye may be caused by an infectedoil-producing gland inside your eyelid. An external stye may be caused by an infection at the base of your eyelash (hair follicle). Styes are very common. Anyone can get them at any age. They usually occur in just one eye, but you may have more than one in either eye. What are the causes? The infection is almost always caused by bacteria called Staphylococcus aureus. This is a common type of bacteria that lives on your skin. What increases the risk? You may be at higher risk for a stye if you have had one before. You may also be at higher risk if you have: ?? Diabetes. ?? Long-term illness. ?? Long-term eye redness. ?? A skin condition called seborrhea. ?? High fat levels in your blood (lipids). What are the signs or symptoms? Eyelid pain is the most common symptom of a stye. Internal styes are more painful than external styes. Other signs and symptoms may include: ?? Painful swelling of your eyelid. ?? A scratchy feeling in your eye. ?? Tearing and redness of your eye. ?? Pus draining from the stye. How is this diagnosed? Your health care provider may be able to diagnose a stye just by examining your eye. The health care provider may also check to make sure: ?? You do not have a fever or other signs of a more serious infection. ?? The infection has not spread to other parts of your eye or areas around your eye. How is this treated? Most styes will clear up in a few days without treatment. In some cases, you may need to use antibiotic drops or ointment to prevent infection. Your health care provider may have to drain the stye surgically if your stye is: ?? Large. ?? Causing a lot of pain. ?? Interfering with your vision. This can be done using a thin blade or a needle. Follow these instructions at home: ?? Take medicines only as directed by your health care provider. ?? Apply a clean, warm compress to your eye for 10 minutes, 4 times a day. ?? Do not wear contact lenses or eye makeup until your stye has healed. ?? Do not try to pop or drain the stye. Contact a health care provider if: ?? You have chills or a fever. ?? Your stye does not go away after several days. ?? Your stye affects your vision. ?? Your eyeball becomes swollen, red, or painful. This information is not intended to replace advice given to you by your health care provider. Make sure you discuss any questions you have with your health care provider. Document Released: 04/06/2006 Document Revised: 02/20/2017 Document Reviewed: 10/11/2014 [employer]ential Interactive Patient Education ?? 2018 [employer]. documented in this encounter Progress Notes * Karine Reynolds APRN - 04/11/2018 12:45 PM EDTAddended by: KARINE REYNOLDS on: 04/12/2018 02:07 PM Modules accepted: Orders * Karine Reynolds APRN - 04/11/2018 12:45 PM EDTAddended by: KARINE REYNOLDS on: 04/12/2018 02:09 PM Modules accepted: Orders * Karine Reynolds APRN - 04/11/2018 12:45 PM EDT Clovis Sarah is a 33 y.o. female. Pulse 87 Temp 97.4 ??F (36.3 ??C) (Temporal Artery ) Resp 14 Ht 172.7 cm (68 ) Wt 72.8 kg (160 lb 6.4 oz) LMP 02/27/2017 SpO2 98% BMI 24.39 kg/m?? History of Present Illness Pt present to clinic with eye lid bump and pain on left side. States it has been there for a few days and rapidly worsening. Has tried hot and cold compresses with no help. The following portions of the patient's history were reviewed and updated as appropriate: allergies, current medications, past family history, past medical history, past social history, past surgicalhistory and problem list. Review of Systems Constitutional: Negative. HENT: Negative. Eyes: Positive for pain (eye lid). Negative for discharge and itching. Respiratory: Negative. Cardiovascular: Negative. Gastrointestinal: Negative. Endocrine: Negative. Genitourinary: Negative. Musculoskeletal: Negative. Objective Physical Exam Constitutional: She appears well-developed and well-nourished. HENT: Head: Normocephalic and atraumatic. Eyes: Pupils are equal, round, and reactive to light. Conjunctivae, EOM and lids are normal. Lids are everted and swept, no foreign bodies found. Cardiovascular: Regular rhythm and normal heart sounds. Pulmonary/Chest: Effort normal. She has no wheezes. She has no rhonchi. She has no rales. Lymphadenopathy: She has no cervical adenopathy. Skin: Skin is warm and dry. Assessment/Plan Kristin was seen today for stye. Diagnoses and all orders for this visit: Hordeolum externum of left lower eyelid Other orders - ciprofloxacin (CILOXAN) 0.3 % ophthalmic solution; Administer 1 drop into the left eye Every 4 (Four) Hours for 5 days. Use q tip and place drop to eye lashes surrounding the stye as well as directed on bottle. documented in this encounter Plan of Treatment Upcoming Encounters Date Type Department Care Team (Late st Contact Info) Description 08/23/2024 8:40 AM EST Office Visit [facility] R[facility] [address] [phone] Sandra Membreno MD [address] [facility] [address] [place] [phone] documented as of this encounter Visit Diagnoses Diagnosis Hordeolum externum of left lower eyelid- Primary documented in this encounter Care Teams Principal Trainer Relationship Specialty Start Date End Date Luis Daniels MD PCP - General Neurology 08/05/16 documented as of this encounter
--- OUTSIDE RECORDS SUMMARY | 2024-06-05 16:38 | XMS_ITS | Encounter Summary ---
Author Organization [facility] Address [address] [place] [address] Care Team Providers Care Time Clerk Name Role Phone Luis Daniels MD Primary Care Provider Reason for Visit * Reason Onset Date Comments Med Refill 01/31/2024 Encounter Details Date Type Department Care Team (Late st Contact Info) Description 01/31/2024 Refill [facility] [address] [phone] Sandra Membreno MD [address] [place] [address] [place], [place] [phone] Systemic lupus erythematosus, unspecified SLE type, unspecified organ involvement status (Primary Dx) Social History Tobacco Use Types Packs/Day Years Used Date Smoking Tobacco: Every Day Cigarettes 0.5 10 Smokeless Tobacco: Never Alcohol Use Standard Drinks/Week Comments Yes 0 (1 standard drink = 0.6 oz pur e alcohol) social Abuse Screen Answer Date Recorded Unsafe at Home or Work/School Not on file Feels Threatened by Someone? Not on file Does Anyone Keep You from Co ntacting Others or Doint Things Outside the Home? Not on file 11/02/2023 Physical Sign of Abuse Present Not on file 0 11/02/2023 Housing Stability Answer Date Recorded Current Living Arrangements Not on file 10/10 Potentially Unsafe Housing Conditions Not on colt e 11/02/2023 Family and Community Support Answer Bentley e Recorded Help with Day-to-Day Activities Not on file 11/02/2023 Lonely or Isolated Not on file 11/02/2023 Employment Answer Date Recorded Do you want help finding or keeping work or a lexy b? Not on file 11/02/2023 Disabilities Answer Date Recorded Concentrating, Remembering, or Making Decisions Difficulty Not on file 11/02/2023 Doing Errands Independently Difficulty Not on fi le 11/02/2023 Education Answer Date Recorded Help with school or training? Not on file Preferred Language Not on file 11/02/2023 Comments No Sex and Gender Information Value Date Recorded Sex Assigned at Not on file Legal Sex Female 11:42 AM EST Gender Identity Not on file Sexual Orientation Not on file documented as of this encounter Miscellaneous Notes * Telephone Encounter - Marina Ramos RegSched Rep - 01/31/2024 9:32 AM EDT PHARMACY IS CALLING TO REQUEST A REFILL ON THE PTS DULOXETINE (CYMBALTA) 60 MG PHARMACY. PHARMACY IS ON FILE PHARMACY PHONE# documented in this encounter Plan of Treatment Upcoming Encounters Date Type Department Care Team (Late st Contact Info) Description 08/23/2024 8:40 AM EST Office Visit [facility] RHE[facility] [address] [place] [phone] Sandra Membreno MD [address] [place] [address] [place] [phone] documented as of this encounter Visit Diagnoses Diagnosis Systemic lupus erythematosus, unspecified SLE type, unspecified organ involvement status- Primary documented in this encounter Care Teams Time Clerk Relationship Specialty Start Date End Date Luis Daneils MD PCP - General Neurology 08/05/16 documented as of this encounter
--- OUTSIDE RECORDS SUMMARY | 2024-06-05 16:38 | XMS_ITS | Encounter Summary ---
Author Organization [facility] [employer] [facility] Address [address] [place] [id number] Care Team Providers Care Hemstitcher Name Role Phone Luis Daniels MD Primary Care Provider [phone] Reason for Visit * Reason Comments Cough Sore Throat Encounter Details Date Type Department Care Team (Late st Contact Info) Description 08/05/2016 11:45 AM EST Office Visit [address] [id number] Upper respiratory tract infection, unspecified type (Primary Dx) Social History Tobacco Use Types [...] Sign Reading Time Taken Comments Blood Pressure 120/80 08/05/2016 11:56 AM EST Pulse 108 08/05/2016 11:56 AM EST Temperature 37 ??C (98.6 ??F) 08/05/2016 11:56 AM EST Respiratory Rate - - Oxygen Saturation 98% 08/05/2016 11:56 AM EST Inhaled Oxygen Concentration - - Weight 70.3 kg (155 lb) 08/05/2016 11:56 AM EST Height 170.2 cm (5' 7 ) 08/05/2016 11:56 AM EST Body Mass Index 24.28 08/05/2016 11:56 AM EST documented in this encounter Patient Instructions * Patient Instructions* Rajni Leon APRN - 08/05/2016 11:45 AM EST Images from the original note were not included. Upper Respiratory Infection, Adult Most upper respiratory infections (URIs) are a viral infection of the air passages leading to the lungs. A URI affects the nose, throat, and upper air passages. The most common type of URI is nasopharyngitis and is typically referred to as the common cold. URIs run their course and usually go away on their own. Most of the time, a URI does not require medical attention, but sometimes a bacterial infection in the upper airways can follow a viral infection. This is called a secondary infection. Sinus and middle ear infections are common types of secondary upper respiratory infections. Bacterial pneumonia can also complicate a URI. A URI can worsen asthma and chronic obstructive pulmonary disease (COPD). Sometimes, these complications can require emergency medical care and may be life threatening. CAUSES Almost all URIs are caused by viruses. A virus is a type of germ and can spread from one person to another. RISKS FACTORS You may be at risk for a URI if: ?? You smoke. ? You have chronic heart or lung disease. ?? You have a weakened defense (immune) system. ? You are very young or very old. ? You have nasal allergies or asthma. ?? You work in crowded or poorly ventilated areas. ?? You work in health care facilities or schools. SIGNS AND SYMPTOMS Symptoms typically develop 2-3 days after you come in contact with a cold virus. Most viral URIs last 7-10 days. However, viral URIs from the influenza virus (flu virus) can last 14-18 days and are typically more severe. Symptoms may include: ?? Runny or stuffy (congested) nose. ? Sneezing. ? Cough. ? Sore throat. ? Headache. ? Fatigue. ? Fever. ? Loss of appetite. ? Pain in your forehead, behind your eyes, and over your cheekbones (sinus pain). ?? Muscle aches. ?? DIAGNOSIS Your health care provider may diagnose a URI by: ?? Physical exam. ?? Tests to check that your symptoms are not due to another condition such as: ?? Strep throat. ?? Sinusitis. ?? Pneumonia. ?? Asthma. TREATMENT A URI goes away on its own with time. It cannot be cured with medicines, but medicines may be prescribed or recommended to relieve symptoms. Medicines may help: ?? Reduce your fever. ?? Reduce your cough. ?? Relieve nasal congestion. HOME CARE INSTRUCTIONS ?? Take medicines only as directed by your health care provider. ? Gargle warm saltwater or take cough drops to comfort your throat as directed by your health careprovider. ?? Use a warm mist humidifier or inhale steam from a shower to increase air moisture. This may makeit easier to breathe. ?? Drink enough fluid to keep your urine clear or pale yellow. ? Eat soups and other clear broths and maintain good nutrition. ? Rest as needed. ? Return to work when your temperature has returned to normal or as your health care provider advises. You may need to stay home longer to avoid infecting others. You can also use a face mask and careful hand washing to prevent spread of the virus. ?? Increase the usage of your inhaler if you have asthma. ? Do not use any tobacco products, including cigarettes, chewing tobacco, or electronic cigarettes. If you need help quitting, ask your health care provider. PREVENTION The best way to protect yourself from getting a cold is to practice good hygiene. ?? Avoid oral or hand contact with people with cold symptoms. ? Wash your hands often if contact occurs. ?? There is no clear evidence that vitamin C, vitamin E, echinacea, or exercise reduces the chance of developing a cold. However, it is always recommended to get plenty of rest, exercise, and practice good nutrition. SEEK MEDICAL CARE IF: ?? You are getting worse rather than better. ? Your symptoms are not controlled by medicine. ? You have chills. ?? You have worsening shortness of breath. ?? You have brown or red mucus. ?? You have yellow or brown nasal discharge. ?? You have pain in your face, especially when you bend forward. ?? You have a fever. ?? You have swollen neck glands. ?? You have pain while swallowing. ?? You have white areas in the back of your throat. SEEK IMMEDIATE MEDICAL CARE IF: ?? You have severe or persistent: Headache. Ear pain. Sinus pain. Chest pain. ?? You have chronic lung disease and any of the following: Wheezing. Prolonged cough. Coughing up blood. A change in your usual mucus. ?? You have a stiff neck. ?? You have changes in your: Vision. Hearing. Thinking. Mood. MAKE SURE YOU: ?? Understand these instructions. ?? Will watch your condition. ?? Will get help right away if you are not doing well or get worse. This information is not intended to replace advice given to you by your health care provider. Make sure you discuss any questions you have with your health care provider. Document Released: 12/21/2001 Document Revised: 11/11/2015 Document Reviewed: 10/02/2014 [employer] Interactive Patient Education ??2016 [employer]. Pharyngitis Pharyngitis is redness, pain, and swelling (inflammation) of your pharynx. CAUSES Pharyngitis is usually caused by infection. Most of the time, these infections are from viruses (viral) and are part of a cold. However, sometimes pharyngitis is caused by bacteria (bacterial). Pharyngitis can also be caused by allergies. Viral pharyngitis may be spread from person to person by coughing, sneezing, and personal items or utensils (cups, forks, spoons, toothbrushes). Bacterial pharyn gitis may be spread from person to person by more intimate contact, such as kissing. SIGNS AND SYMPTOMS Symptoms of pharyngitis include: ? Sore throat. ? Tiredness (fatigue). ? Low-grade fever. ? Headache. ?? Joint pain and muscle aches. ?? Skin rashes. ?? Swollen lymph nodes. ?? Plaque-like film on throat or tonsils (often seen with bacterial pharyngitis). DIAGNOSIS Your health care provider will ask you questions about your illness and your symptoms. Your medicalhistory, along with a physical exam, is often all that is needed to diagnose pharyngitis. Sometimes, a rapid strep test is done. Other lab tests may also be done, depending on the suspected cause. TREATMENT Viral pharyngitis will usually get better in 3-4 days without the use of medicine. Bacterial pharyngitis is treated with medicines that kill germs (antibiotics). HOME CARE INSTRUCTIONS ?? Drink enough water and fluids to keep your urine clear or pale yellow. ? Only take aeyo-ipa-cdqjsee or prescription medicines as directed by your health care provider: ?? If you are prescribed antibiotics, make sure you finish them even if you start to feel better. ?? Do not take aspirin. ? Get lots of rest. ? Gargle with 8 oz of salt water (?? tsp of salt per 1 qt of water) as often as every 1-2 hours tosoothe your throat. ? Throat lozenges (if you are not at risk for choking) or sprays may be used to soothe your throat. SEEK MEDICAL CARE IF: ?? You have large, tender lumps in your neck. ?? You have a rash. ?? You cough up green, yellow-brown, or bloody spit. SEEK IMMEDIATE MEDICAL CARE IF: ?? Your neck becomes stiff. ?? You drool or are unable to swallow liquids. ?? You vomit or are unable to keep medicines or liquids down. ?? You have severe pain that does not go away with the use of recommended medicines. ?? You have trouble breathing (not caused by a stuffy nose). MAKE SURE YOU: ?? Understand these instructions. ?? Will watch your condition. ?? Will get help right away if you are not doing well or get worse. This information is not intended to replace advice given to you by your health care provider. Make sure you discuss any questions you have with your health care provider. Document Released: 06/27/2006 Document Revised: 04/17/2014 Document Reviewed: 03/04/2014 [employer] Interactive Patient Education ??2016 [employer] documented in this encounter Progress Notes * Rajni Leon APRN - 08/05/2016 11:45 AM EST Cl[place] Sarah is a 31 y.o. female who presents to the clinic with the following. Cough This is a new problem. The current episode started in the past 7 days. The problem has been gradually worsening. The problem occurs every few minutes. The cough is productive of sputum (occasionally productive). Associated symptoms include ear pain, nasal congestion, postnasal drip and a sore throat. Pertinent negatives include no fever or wheezing. The symptoms are aggravated by lying down. She has tried OTC cough suppressant for the symptoms. The treatment provided mild relief. Sore Throat This is a new problem. The current episode started in the past 7 days. The problem has been gradually worsening. Neither side of throat is experiencing more pain than the other. There has been no fever. Associated symptoms include coughing, ear pain and a plugged ear sensation. Pertinent negatives include no ear discharge, neck pain, swollen glands or trouble swallowing. She has had no exposure to strep. She has tried acetaminophen and NSAIDs for the symptoms. The treatment provided mild relief. The following portions of the patient's history were reviewed and updated as appropriate: allergies, current medications, past family history, past medical history, past social history, past surgicalhistory and problem list. Review of Systems Constitutional: Negative for fever. HENT: Positive for ear pain, postnasal drip and sore throat. Negative for ear discharge, sinus pressure and trouble swallowing. Eyes: Negative. Respiratory: Positive for cough. Negative for wheezing. Cardiovascular: Negative. Gastrointestinal: Positive for nausea. Musculoskeletal: Negative. Negative for neck pain. Neurological: Negative. Psychiatric/Behavioral: Negative. Objective Physical Exam Constitutional: She is oriented to person, place, and time. She appears well- developed and well-nourished. HENT: Head: Normocephalic and atraumatic. Right Ear: External ear normal. A middle ear effusion (mild) is present. Left Ear: External ear normal. A middle ear effusion (mild) is present. Mouth/Throat: Uvula is midline and mucous membranes are normal. Posterior oropharyngeal erythema present. No tonsillar exudate. Eyes: EOM are normal. Pupils are equal, round, and reactive to light. Neck: Normal range of motion. Cardiovascular: Regular rhythm and normal heart sounds. Pulmonary/Chest: Effort normal. She has decreased breath sounds in the right upper field and the left upper field. Lymphadenopathy: She has no cervical adenopathy. Neurological: She is alert and oriented to person, place, and time. Skin: Skin is warm and dry. Vitals reviewed. Vitals: 08/05/16 1156 BP: 120/80 Pulse: 108 Temp: 98.6 ??F (37 ??C) SpO2: 98% Lab Results Component Value Date RAPSCRN Negative 08/05/2016 Assessment/Plan Kristin was seen today for cough and sore throat. Diagnoses and all orders for this visit: Upper respiratory tract infection, unspecified type - qecvkrrbfqtgfkp-ikqapwoejnipgfs-PI 30-2-10 MG/5ML syrup; Take 5 mL by mouth 4 (Four) Times a Day As Needed for allergies for up to 7 days. - promethazine-dextromethorphan (PROMETHAZINE-DM) 6.25-15 MG/5ML syrup; Take 5 mL by mouth At NightAs Needed for cough for up to 7 days. - predniSONE (DELTASONE) 20 MG tablet; Take 1 tablet by mouth 2 (Two) Times a Day for 4 days. - fluticasone (FLONASE) 50 MCG/ACT nasal spray; 2 sprays into each nostril Daily for 30 days. - POC Rapid Strep A Reviewed home care instructions, and patient verbalized understanding. Patient instructed to followup with PCP and/or ED for worsening or non-resolving symptoms. Rajni Leon APRN documented in this encounter Plan of Treatment Upcoming Encounters Date Type Department Care Team (Late st Contact Info) Description 08/23/2024 8:40 AM EST Office Visit [facility] [address] [place] [phone] Sandra Membreno MD [address] [place] [address] [place] [id number] documented as of this encounter Procedures Procedure Name Priority Date/Time Associated Diagnosis Comments POCT RAPID STREP A Routine 08/05/2016 12 :25 PM EST Upper respiratory tract infection, unspecified type documented in this encounter Results * POC Rapid Strep A (08/05/2016 12:25 PM EST) Rapid Strep A Screen Negative Negative, VALID, INVALID, Not Performed [facility] Internal Control Passed Passed [facility] Lot Number [id number] [facility] Expiration Date 01/2018 [facility] Other 08/05/2016 12:2 5 PM EST Rajni Leon ASH CONVEYOR OPERATOR POINT OF CARE TEST ORDERABL ES Final Result [facility]
[address] [place] [address], documented in this encounter Visit Diagnoses Diagnosis Upper respiratory tract infection, unspecified type- Primary documented in this encounter Care Teams Hemstitcher Relationship Specialty Start Date End Date Luis Daniels MD PCP - General Neurology 08/05/16 documented as of this encounter
--- OUTSIDE RECORDS SUMMARY | 2024-06-05 16:38 | XMS_ITS | Clinical Summary ---
Author Organization [facility] Address [address] [place] [address] Care Team Providers Care Commercial Photographer Name Role Phone Luis Daniels MD Primary Care Provider Allergies No known active allergies Medications Apremilast (Otezla) 30 MG tablet Take 1 tablet by mouth Every 12 (Twelve) Hours. 60 tablet 5 11/02/19 24 Active DULoxetine HCl (DRIZALMA) 30 MG capsuleIndicati ons:Systemic lupus erythematosus, unspecified SLE type, unspecified organ involvement status Take 1 capsule by mouth Daily. 30 capsule 3 02/06/20 24 Active Polypodium Leucotomos (Heliocare) 240 MG capsule Take by mouth. Acti ve cetirizine (zyrTEC) 10 MG tablet Take 1 tablet by mouth Daily. Active fluocinonide (LIDEX) 0.05 % ointment Apply 1 Application topically to the appropriate area as directed 1 (One) Time Per Week. 01/28/20 24 Active triamcinolone (KENALOG) 0.1 % ointment Apply 1 Application topically to the appropriate area as directed At Night As Needed. 01/28/20 24 Active Apremilast (Otezla) 30 MG tablet Take 30 mg by mouth 2 (Two) Times a Day. 09/23/19 24 Active diphenhydrAMINE (BENADRYL) 25 mg capsule Take 1 capsule by mouth 2 (Two) Times a Day. 09/23/19 24 Active mycophenolate (CELLCEPT) 500 MG tablet TAKE 2 TABLETS BY MOUTH 2 TIMES A DAY 120 tablet 1 05/14/20 24 Active mycophenolate (CELLCEPT) 500 MG tablet Take 2 tablets by mouth 2 (Two) Times a Day. 120 tablet 1 03/21/20 24 024 Discontinued Active Problems Problem Noted Date Diagnosed Date Alopecia 03/29/2024 Assessment & Plan (03/29/2024 4:10 PM EDT): Dr. Rivera started clobetasol solution. Improving. Slowly regrowing. Systemic lupus erythematosus 03/28/2024 Assessment & Plan (03/29/2024 4:09 PM EDT): Positive direct David. Dsdna +. Other serologies negative. 09/30 1:160 homogenous and speckled. Crithidia dna negative. Positive Alopecia H/o PIP swelling. Denies photosensitivity, pleurisy, oronasal ulcers, sicca sx, Raynaud's. Alopecia improved, Oronasal ulcers none since 05/02. She did have an instance of swelling in the mcps and pips with sausage digits. Negative secondary serologies Now on Otezla for eczema/psoriasis She was diagnosed with lupus in 2022. The thought was that this may be drug induced from Abbrie injection for eczema. Her mother has lupus. SPF 50 +. Blue Lizard. No tanning bed ?PSA Sjogren's syndrome 03/28/2024 Assessment & Plan (03/28/2024 1:03 PM EDT): Diagnosed with positive lip biopsy in 2004. On Plaquenil for joint pain. Positive episodes of parotitis. Sx responded to steroids. Ssa + Stable. Some parotitis since last OV- Mild tenderness since last ov. Continue plaquenil. Medrol dose [facility] for parotitis. Biotene or ACT toothpaste. Biotene or ACT mouth rinse. Xylimelts - [facility]. Catharine spray from [facility] for mouth dryness ([facility]) Plenty of fluids. If no Asthma or COPD there are two prescriptions available. Evoxac or [place]ine. Osteoarthritis of lumbar spine 03/28/2024 Assessment & Plan (03/28/2024 1:03 PM EDT): DDD. S/p L4-5 herniation. S/p 3 surgeries. Currently seeing Fred HAMILTON. No surgery recommended. Seeing [facility] for treatment of chronic pain. MRI showed degenerative changes as well as suspected pseudomeningocele at L4-L5 and inflammatory signal changes. She had a pseudomeningocele repaired in August, but had a recent fall and she has less sensation below her left knee and calf. Spine stimulator in 08/2022 Still has pain and pressure in L spine and down L leg. Seeing Dr. Juliana Jarrell and they are going to be conservative for now. Using spinal stimulator , pain med and PT. Other fatigue 03/28/2024 Assessment & Plan (03/28/2024 1:04 PM EDT): Sleep interrupted by back pain. TSH normal 11/29. Vit D normal B12 low. Continue injections Raynaud's disease without gangrene 03/28/2024 Assessment & Plan (03/29/2024 4:01 PM EDT): Positive color change - white only She feels this is worsening as the weather cools. Amlodipine did cause swelling in her feet in the past. Hot hands and insoles. Keep extremities warm. Hot hands from [employer] [facility]. Vitamin B 12 deficiency 03/28/2024 Assessment & Plan (03/28/2024 1:04 PM EDT): 119 451 in 03/2023 Continue on Monthly B12. Elevated liver function tests 03/28/2024 Assessment & Plan (03/28/2024 1:05 PM EDT): To her knowledge, she has never had liver issues in the past. Denies any infection at the time of the blood draw. 03/01 - Alk phos normal, AST 366(36), ALT 149 (35). Anti smooth muscle and Mitochondrial negative- 06/01 1 episode of significant LFT elevation - no etiology found. Normal 05/02 05/02 WBC 3.7(3.8) Primary osteoarthritis involving multiple joints 03/28/2024 Assessment & Plan (03/28/2024 1:05 PM EDT): Knees. She has had severe OA of knees for quite some time L knee replacement has been suggested. Has been getting PRP for 2 years with steroid inj every 4 months Moderate arthritis of all three compartments in knees. Needs L knee replacement per patient. Dr. Grimaldo. She saw Dr. Navarro - postponing replacements. High risk medication use 03/28/2024 Assessment & Plan (03/29/2024 4:02 PM EDT): [facility] Labs every 2-3 months Positive DAVID (antinuclear antibody) 03/19/2024 Psoriasis 11/03/2023 Encounters Date Type Department Care Team Description 05/14/2024 Refill [facility] [address] [place] [address] [address] [phone] Sandra Membreno MD 03/29/2024 4:40 PM EDT Lab [facility] [place] [address] [place] [address] [address] [phone] Systemic lupus erythematosus, unspecified SLE type, unspecified organ involvement status; High risk medication use 03/29/2024 3:45 PM EDT Office Visit [facility] [address] [place] [address] [address] [place] [phone] Refugio Sahu APRN Systemic lupus erythematosus, unspecified SLE type, unspecified organ involvement status (Primary Dx); High risk medication use; Alopecia 03/21/2024 Refill [facility] [address] [place] [address] [address] [place] [phone] Sandra Membreno MD from Last 3 Months Family History Medical History Relation Name Comments Crohn's disease Father Lupus Mother Rheum arthritis Mother Relation Name Status Comments Father Mother Social History Tobacco Use Types Packs/Day Years Used Date Smoking Tobacco: Every Day Cigarettes 0.5 10 Smokeless Tobacco: Never Tobacco Cessation:Ready to Q uit: Not Asked; Counseling Given: Not Answered Alcohol Use Standard Drinks/Week Comments Yes 0 [...] on file Sexual Orientation Not on file Last Filed Vital Signs Vital Sign Reading Time Taken Comments Blood Pressure 124/78 03/29/2024 3:29 PM EDT Pulse 91 03/29/2024 3:29 PM EDT Temperature 37.1 ??C (98.7 ??F) 03/29/2024 3:29 PM ED T Respiratory Rate 14 04/11/2018 12:53 PM EDT Oxygen Saturation 98% 04/11/2018 12:53 PM EDT Inhaled Oxygen Concentration - - Weight 73.6 kg (162 lb 3.2 oz) 03/29/2024 3:29 P M EDT Height 172.7 cm (5' 8 ) 03/29/2024 3:29 PM EDT Body Mass Index 24.66 03/29/2024 3:29 PM EDT Plan of Treatment Upcoming Encounters Date Type Department Care Team (Late st Contact Info) Description 08/23/2024 8:40 AM EST Office Visit [facility] RHE[facility] [address] [phone] Sandra Membreno MD [address] [facility] [address] [place] [address] Health Maintenance Due Date Last Done Comments Annual Gynecologic Pelvic and Breast Exam 1985 Pneumococcal Vaccine 0-64 (1 of 2 - PCV) 1991 TDAP/TD VACCINES (1 - Tdap) 01/07/2004 ANNUAL PHYSICAL 04/11/2018 HEPATITIS C SCREENING 04/11/2018 PAP SMEAR 04/11/2018 COVID-19 Vaccine (3 - Moderna risk series) 10/29/2020 10/01/2020, 09/03/2020 INFLUENZA VACCINE 02/09/2024 Procedures Procedure Name Priority Date/Time Associated Diagnosis Comments CBC W/MANUAL DIFFERENTIAL Routine 03/29/2024 4:19 PM EDT Systemic lupus erythematosus, unspecified SLE type, unspecified organ involvement status High risk medication use MANUAL DIFFERENTIAL Routine 03/29/2024 4 :19 PM EDT Systemic lupus erythematosus, unspecified SLE type, unspecified organ involvement status High risk medication use CBC WITH AUTO DIFFERENTIAL Routine 03/29/2024 4:19 PM EDT Systemic lupus erythematosus, unspecified SLE type, unspecified organ involvement status High risk medication use COMPREHENSIVE METABOLIC PANEL Routine 03/29/2024 4:19 PM EDT Systemic lupus erythematosus, unspecified SLE type, unspecified organ involvement status High risk medication use URINALYSIS W/ MICROSCOPIC IF INDICATED (NO CULTURE) Routine 03/29/2024 4:19 PM EDT Systemic lupus erythematosus, unspecified SLE type, unspecified organ involvement status DSDNA ANTIBODY BY IFA, CRITHIDIA LUCILIAE, WITH REFLEX TO TITER Routine 03/29/2024 4:19 PM EDT Systemic lupus erythematosus, unspecified SLE type, unspecified organ involvement status C4+C3 Routine 03/29/2024 4:19 PM EDT Systemic lupus erythematosus, unspecified SLE type, unspecified organ involvement status from Last 3 Months Results * dsDNA Antibody by IFA, Crithidia luciliae, with Reflex to Titer (03/29/2024 4:19 PM EDT) dsDNA Crithidia Luciliae IFA Negative Negative 04/03/2024 8:19 AM EDT [facility] Blood Venipuncture / Unknown 03/29/2024 4:19 PM EDT 03/29/2024 4:35 PM EDT Narrative [facility] - 04/03/2024 8:19 AM EDT Performed at: ??[address] - [address], [place], [place] ??[id number] Group Therapy Counselor: Felipe Mcgovern PhD, Phone: ??[phone] us Refugio Sahu HOME ECONOMICS TEACHER LAB BLOOD ORDER ONLY F inal Result [facility] [address] [place] [id number], * Urinalysis With Microscopic If Indicated (No Culture) - Urine, Clean Catch (03/29/2024 4:19 PM EDT) Color, UA Yellow Yellow, Straw 03/29/2024 11:49 PM EDT [facility] Appearance, UA Clear Clear 03/29/2024 11:49 PM EDT [facility] pH, UA 7.0 5.0 - 8.0 03/29/2024 11:49 PM EDT [facility] Specific [place], UA 1.006 1.005 - 1.030 03/29/2024 11:49 PM EDT [facility] Glucose, UA Negative Negative 03/29/2024 11:49 PM EDT [facility] Ketones, UA Negative Negative 03/29/2024 11:49 PM EDT [facility] Bilirubin, UA Negative Negative 03/29/2024 11:49 PM EDT [facility] Blood, UA Negative Negative 03/29/2024 11:49 PM EDT [facility] Protein, UA Negative Negative 03/29/2024 11:49 PM EDT [facility] Leuk Esterase, UA Negative Negative 03/29/2024 11:49 PM EDT [facility] Nitrite, UA Negative Negative 03/29/2024 11:49 PM EDT [facility] Urobilinogen, UA 0.2 E.U./dL 0.2 - 1.0 E.U./dL 03/29/2024 11:49 PM EDT [facility] Urine Urine specimen obtained by clean catch procedure / Unknown Collection / Unknown 03/29/2024 4:19 PM EDT 03/29/2024 4:35 PM EDT Narrative [facility] - 03/29/2024 11:49 PM EDT Urine microscopic not indicated. Refugio Sahu APRN URINE ORDERABLES Final Result Performing Organization Address [facility]/ZIP Co de Phone Number [facility]
[address] [place] [address], [place] [phone] * C4+C3 (03/29/2024 4:19 PM EDT) C3 Complement 117.0 82.0 - 167.0 mg/dl 03/29/2024 11:45 PM EDT [facility] C4 Complement 23.0 14.0 - 44.0 mg/dl 03/29/2024 11:45 PM EDT [facility] Blood Venipuncture / Unknown 03/29/2024 4:19 PM EDT 03/29/2024 4:35 PM EDT Refugio Sahu HOME ECONOMICS TEACHER LAB BLOOD ORDERABLES F inal Result Performing Organization Address [facility]/ZIP Co de Phone Number [facility]
[address] [place] [address], * CBC Auto Differential (03/29/2024 4:19 PM EDT) WBC 4.66 3.40 - 10.80 10*3/mm3 03/30/2024 1:36 AM EDT [facility] RBC 4.55 3.77 - 5.28 10*6/mm3 03/30/2024 1:36 AM EDT [facility] Hemoglobin 12.5 12.0 - 15.9 g/dL 03/30/2024 1:36 AM EDT [facility] Hematocrit 38.4 34.0 - 46.6 % 03/30/2024 1:36 AM EDT [facility] MCV 84.4 79.0 - 97.0 fL 03/30/2024 1:36 AM EDT [facility] MCH 27.5 26.6 - 33.0 pg 03/30/2024 1:36 AM EDT [facility] MCHC 32.6 31.5 - 35.7 g/dL 03/30/2024 1:36 AM EDT [facility] RDW 13.0 12.3 - 15.4 % 03/30/2024 1:36 AM EDT [facility] RDW-SD 40.2 37.0 - 54.0 fl 03/30/2024 1:36 AM EDT [facility] MPV 10.7 6.0 - 12.0 fL 03/30/2024 1:36 AM EDT [facility] Platelets 335 140 - 450 10*3/mm3 03/30/2024 1:36 AM EDT [facility] Blood Venipuncture / Unknown 03/29/2024 4:19 PM EDT 03/29/2024 4:35 PM EDT Refugio Sahu APRN LAB BLOOD ORDERABLES F inal Result [facility]
[address] [place] [address], * (ABNORMAL) Manual Differential (03/29/2024 4:19 PM EDT) Neutrophil % 65.3 42.7 - 76.0 % 03/30/2024 2:54 AM EDT [facility] Lymphocyte % 17.3(L) 19.6 - 45.3 % 03/30/2024 2:54 AM EDT [facility] Monocyte % 10.2 5.0 - 12.0 % 03/30/2024 2:54 AM EDT [facility] Eosinophil % 5.1 0.3 - 6.2 % 03/30/2024 2:54 AM EDT [facility] Basophil % 2.0(H) 0.0 - 1.5 % 03/30/2024 2:54 AM EDT [facility] Neutrophils Absolute 3.04 1.70 - 7.00 10*3/mm3 03/30/2024 2:54 AM EDT [facility] Lymphocytes Absolute 0.81 0.70 - 3.10 10*3/mm3 03/30/2024 2:54 AM EDT [facility] Monocytes Absolute 0.48 0.10 - 0.90 10*3/mm3 03/30/2024 2:54 AM EDT [facility] Eosinophils Absolute 0.24 0.00 - 0.40 10*3/mm3 03/30/2024 2:54 AM EDT [facility] Basophils Absolute 0.09 0.00 - 0.20 10*3/mm3 03/30/2024 2:54 AM EDT [facility] Poikilocytes Slight/1+ None Seen 03/30/2024 2:54 AM T [facility] WBC Morphology Normal Normal 03/30/2024 2:54 AM EDT [facility] Platelet Morphology Normal Normal 03/30/2024 2:54 AM T [facility] Blood Venipuncture / Unknown 03/29/2024 4:19 PM EDT 03/29/2024 4:35 PM EDT MagiDamienAnnabel Luis Alberto HOME ECONOMICS TEACHER LAB BLOOD ORDERABLES F inal Result [facility]
[address] [place] [address], * Comprehensive Metabolic Panel (03/29/2024 4:19 PM EDT) Glucose 78 65 - 99 mg/dL 03/29/2024 11:44 PM EDT [facility] BUN 6 6 - 20 mg/dL 03/29/2024 11:44 PM EDT [facility] Creatinine 0.65 0.57 - 1.00 mg/dL 03/29/2024 11:44 PM EDT [facility] Sodium 139 136 - 145 mmol/L 03/29/2024 11:44 PM EDT [facility] Potassium 4.2 3.5 - 5.2 mmol/L 03/29/2024 11:44 PM EDT [facility] Chloride 105 98 - 107 mmol/L 03/29/2024 11:44 PM EDT [facility] CO2 22.5 22.0 - 29.0 mmol/L 03/29/2024 11:44 PM EDT [facility] Calcium 9.2 8.6 - 10.5 mg/dL 03/29/2024 11:44 PM EDT [facility] Total Protein 6.7 6.0 - 8.5 g/dL 03/29/2024 11:44 PM EDT [facility] Albumin 4.1 3.5 - 5.2 g/dL 03/29/2024 11:44 PM EDT [facility] ALT (SGPT) 24 1 - 33 U/L 03/29/2024 11:44 PM EDT [facility] AST (SGOT) 28 1 - 32 U/L 03/29/2024 11:44 PM EDT [facility] Alkaline Phosphatase 63 39 - 117 U/L 03/29/2024 11:44 PM EDT [facility] Total Bilirubin <0.2 0.0 - 1.2 mg/dL 03/29/2024 11:44 PM EDT [facility] Globulin 2.6 gm/dL 03/29/2024 11:44 PM EDT [facility] A/G Ratio 1.6 g/dL 03/29/2024 11:44 PM EDT [facility] BUN/Creatinine Ratio 9.2 7.0 - 25.0 03/29/2024 11:44 PM EDT [facility] Anion Gap 11.5 5.0 - 15.0 mmol/L 03/29/2024 11:44 PM EDT [facility] eGFR 115.0 >60.0 mL/min/1.7 3 03/29/2024 11:44 PM EDT [facility] Blood Venipuncture / Unknown 03/29/2024 4:19 PM EDT 03/29/2024 4:35 PM EDT Narrative [facility] - 03/29/2024 11:44 PM EDT GFR Normal >60 Chronic Kidney Disease <60 Kidney Failure <15 us Refugio Sahu HOME ECONOMICS TEACHER LAB BLOOD ORDERABLES F inal Result [facility]
[address] [place] [address], [place] [phone] from Last 3 Months Insurance EMPLOYEE Care Teams Commercial Photographer Relationship Specialty Start Date End Date Luis Daniels MD PCP - General Neurology 08/05/16
--- OUTSIDE RECORDS SUMMARY | 2024-06-05 16:38 | XMS_ITS | Encounter Summary ---
Author Organization [facility] Address [address] [place] [address] Care Team Providers Care Adoption Specialist Name Role Phone Luis Daniels MD Primary Care Provider Encounter Details Date Type Department Care Team (Late st Contact Info) Description 03/29/2024 4:40 PM EDT Lab [facility] [place] [address] [facility] [address] [place] [address] Systemic lupus erythematosus, unspecified SLE type, unspecified organ involvement status; High risk medication use Social History Tobacco Use Types Packs/Day Years [...] on file documented as of this encounter Plan of Treatment Upcoming Encounters Date Type Department Care Team (Late st Contact Info) Description 08/23/2024 8:40 AM EST Office Visit [facility] RHEUMATOLOGY [address] [address] Sandra Membreno MD [address] [facility] [address] [place] [address] documented as of this encounter Procedures Procedure Name Priority Date/Time Associated Diagnosis Comments CBC W/MANUAL DIFFERENTIAL Routine 03/29/2024 4:19 PM EDT Systemic lupus erythematosus, unspecified SLE type, unspecified organ involvement status High risk medication use DSDNA ANTIBODY BY IFA, LORRAINE PEÑA, WITH REFLEX TO TITER Routine 03/29/2024 4:19 PM EDT Systemic lupus erythematosus, unspecified SLE type, unspecified organ involvement status URINALYSIS W/ MICROSCOPIC IF INDICATED (NO CULTURE) Routine 03/29/2024 4:19 PM EDT Systemic lupus erythematosus, unspecified SLE type, unspecified organ involvement status C4+C3 Routine 03/29/2024 4:19 PM EDT Systemic lupus erythematosus, unspecified SLE type, unspecified organ involvement status CBC WITH AUTO DIFFERENTIAL Routine 03/29/2024 4:19 [...] organ involvement status High risk medication use documented in this encounter Results * (ABNORMAL) Manual Differential (03/29/2024 4:19 PM EDT) Neutrophil % 65.3 42.7 - 76.0 % 03/30/2024 2:54 AM T [facility] Lymphocyte % 17.3(L) 19.6 - 45.3 % 03/30/2024 2:54 AM EDT [facility] Monocyte % 10.2 5.0 - 12.0 % 03/30/2024 2:54 AM EDT [facility] Eosinophil % 5.1 0.3 - 6.2 % 03/30/2024 2:54 AM EDT [facility] Basophil % 2.0(H) 0.0 - 1.5 % 03/30/2024 2:54 AM EDT [facility] Neutrophils Absolute 3.04 1.70 - 7.00 10*3/mm3 03/30/2024 2:54 AM EDT [facility] Lymphocytes Absolute 0.81 0.70 - 3.10 10*3/mm3 03/30/2024 2:54 AM EDT [facility] Monocytes Absolute 0.48 0.10 - 0.90 10*3/mm3 03/30/2024 2:54 AM EDT [facility] Eosinophils Absolute 0.24 0.00 - 0.40 10*3/mm3 03/30/2024 2:54 AM EDT [facility] Basophils Absolute 0.09 0.00 - 0.20 10*3/mm3 03/30/2024 2:54 AM [facility] Poikilocytes Slight/1+ None Seen 03/30/2024 2:54 AM T [facility] WBC Morphology Normal Normal 03/30/2024 2:54 AM EDT [facility] Platelet Morphology Normal Normal 03/30/2024 2:54 AM EDT [facility] Blood Venipuncture / Unknown 03/29/2024 4:19 PM EDT 03/29/2024 4:35 PM EDT Refguio Sahu APRN LAB BLOOD ORDERABLES F inal Result [facility]
[address] [place] [address], * CBC Auto Differential (03/29/2024 4:19 PM EDT) WBC 4.66 3.40 - 10.80 10*3/mm3 03/30/2024 1:36 AM [facility] RBC 4.55 3.77 - 5.28 10*6/mm3 03/30/2024 1:36 AM [facility] Hemoglobin 12.5 12.0 - 15.9 g/dL 03/30/2024 1:36 AM [facility] Hematocrit 38.4 34.0 - 46.6 % 03/30/2024 1:36 AM [facility] MCV 84.4 79.0 - 97.0 fL 03/30/2024 1:36 AM [facility] MCH 27.5 26.6 - 33.0 pg 03/30/2024 1:36 AM T [facility] MCHC 32.6 31.5 - 35.7 g/dL 03/30/2024 1:36 AM [facility] RDW 13.0 12.3 - 15.4 % 03/30/2024 1:36 AM [facility] RDW-SD 40.2 37.0 - 54.0 fl 03/30/2024 1:36 AM [facility] MPV 10.7 6.0 - 12.0 fL 03/30/2024 1:36 AM EDT [facility] Platelets 335 140 - 450 10*3/mm3 03/30/2024 1:36 AM EDT [facility] Blood Venipuncture / Unknown 03/29/2024 4:19 PM EDT 03/29/2024 4:35 PM EDT us Refugio Sahu APRN LAB BLOOD ORDERABLES F inal Result [facility]
[address] [place] [address], * Comprehensive Metabolic Panel (03/29/2024 4:19 PM EDT) Glucose 78 65 - 99 mg/dL 03/29/2024 11:44 PM EDT [facility] BUN 6 6 - 20 mg/dL 03/29/2024 11:44 PM EDT [facility] Creatinine 0.65 0.57 - 1.00 mg/dL 03/29/2024 11:44 PM EDT [facility] Sodium 139 136 - 145 mmol/L 03/29/2024 11:44 PM EDT [facility] Potassium 4.2 3.5 - 5.2 mmol/L 03/29/2024 11:44 PM EDT [facility] Chloride 105 98 - 107 mmol/L 03/29/2024 11:44 PM EDT [facility] CO2 22.5 22.0 - 29.0 mmol/L 03/29/2024 11:44 PM EDT [facility] Calcium 9.2 8.6 - 10.5 mg/dL 03/29/2024 11:44 PM EDT [facility] Total Protein 6.7 6.0 - 8.5 g/dL 03/29/2024 11:44 PM EDT [facility] Albumin 4.1 3.5 - 5.2 g/dL 03/29/2024 11:44 PM EDT [facility] ALT (SGPT) 24 1 - 33 U/L 03/29/2024 11:44 PM EDT [facility] AST (SGOT) 28 1 - 32 U/L 03/29/2024 11:44 PM EDT [facility] Alkaline Phosphatase 63 39 - 117 U/L 03/29/2024 11:44 PM EDT [facility] Total Bilirubin <0.2 0.0 - 1.2 mg/dL 03/29/2024 11:44 PM EDT [facility] Globulin 2.6 gm/dL 03/29/2024 11:44 PM EDT [facility] A/G Ratio 1.6 g/dL 03/29/2024 11:44 PM EDT [facility] BUN/Creatinine Ratio 9.2 7.0 - 25.0 03/29/2024 11:44 PM EDT [facility] Anion Gap 11.5 5.0 - 15.0 mmol/L 03/29/2024 11:44 PM EDT [facility] eGFR 115.0 >60.0 mL/min/1.7 3 03/29/2024 11:44 PM EDT [facility] Blood Venipuncture / Unknown 03/29/2024 4:19 PM EDT 03/29/2024 4:35 PM EDT Narrative [facility] - 03/29/2024 11:44 PM EDT GFR Normal >60 Chronic Kidney Disease <60 Kidney Failure <15 us Refugio Sahu PHARMACY BILLING ADJUDICATOR LAB BLOOD ORDERABLES F inal Result [facility]
[address] [place] [address], * Urinalysis With Microscopic If Indicated (No Culture) - Urine, Clean Catch (03/29/2024 4:19 PM EDT) Color, UA Yellow Yellow, Straw 03/29/2024 11:49 PM EDT [facility] Appearance, UA Clear Clear 03/29/2024 11:49 PM EDT [facility] pH, UA 7.0 5.0 - 8.0 03/29/2024 11:49 PM EDT [facility] Specific [place], UA 1.006 1.005 - 1.030 03/29/2024 11:49 PM EDT [facility] Glucose, UA Negative Negative 03/29/2024 11:49 PM EDT [facility] Ketones, UA Negative Negative 03/29/2024 11:49 PM EDT [facility] Bilirubin, UA Negative Negative 03/29/2024 11:49 PM EDT [facility] Blood, UA Negative Negative 03/29/2024 11:49 PM EDT [facility] Protein, UA Negative Negative 03/29/2024 11:49 PM EDT [facility] Leuk Esterase, UA Negative Negative 03/29/2024 11:49 PM EDT [facility] Nitrite, UA Negative Negative 03/29/2024 11:49 PM EDT [facility] Urobilinogen, UA 0.2 E.U./dL 0.2 - 1.0 E.U./dL 03/29/2024 11:49 PM EDT [facility] Urine Urine specimen obtained by clean catch procedure / Unknown Collection / Unknown 03/29/2024 4:19 PM EDT 03/29/2024 4:35 PM EDT Narrative [facility] - 03/29/2024 11:49 PM EDT Urine microscopic not indicated. us Refugio Sahu PHARMACY BILLING ADJUDICATOR URINE ORDERABLES Final Result [facility]
[address] [place] [address], * dsDNA Antibody by IFA, Crithidia luciliae, with Reflex to Titer (03/29/2024 4:19 PM EDT) dsDNA Crithidia Luciliae IFA Negative Negative 04/03/2024 8:19 AM EDT [facility] Blood Venipuncture / Unknown 03/29/2024 4:19 PM EDT 03/29/2024 4:35 PM EDT Narrative [facility] - 04/03/2024 8:19 AM EDT Performed at: ??01 - [facility] [address] [facility], [place], [place] ??[id number] Lens Polisher Hand: Felipe Mcgovern PhD, Phone: ??[phone] Refugio Sahu PHARMACY BILLING ADJUDICATOR LAB BLOOD ORDER ONLY F inal Result [facility] [address] [place] [address], * C4+C3 (03/29/2024 4:19 PM EDT) C3 Complement 117.0 82.0 - 167.0 mg/dl 03/29/2024 11:45 PM EDT [facility] C4 Complement 23.0 14.0 - 44.0 mg/dl 03/29/2024 11:45 PM EDT [facility] Blood Venipuncture / Unknown 03/29/2024 4:19 PM EDT 03/29/2024 4:35 PM EDT Refugio Sahu PHARMACY BILLING ADJUDICATOR LAB BLOOD ORDERABLES F inal Result [facility]
[address] [place] [address], documented in this encounter Visit Diagnoses Diagnosis Systemic lupus erythematosus, unspecified SLE type, unspecified organ involvement status High risk medication use documented in this encounter Care Teams Adoption Specialist Relationship Specialty Start Date End Date Luis Daniels MD PCP - General Neurology 08/05/16 documented as of this encounter
--- OUTSIDE RECORDS SUMMARY | 2024-06-05 16:38 | XMS_ITS ---
Author Organization [facility] Address [address] [place] [address] Care Team Providers Care Director Peoplesoft Name Role Phone Luis Daniels MD Primary Care Provider Dermatology Status:Declined (Declined) Start date:11/03/2023 End date:11/03/2023 Decline reason:No payer access Linked medications:Apremilast (Active) Linked problems:Psoriasis (Active) Continued Care and Services Coordination
--- OUTSIDE RECORDS SUMMARY | 2024-06-05 16:38 | XMS_ITS | Encounter Summary ---
Author Organization [facility] Address [address] [place] [address] Care Team Providers Care Drop Board Worker Name Role Phone Luis Daniels MD Primary Care Provider Reason for Visit * Reason Comments Follow-up Lupus Osteoarthritis Sjogren's sybdrome Encounter Details Date Type Department Care Team (Late st Contact Info) Description 03/29/2024 3:45 PM EDT Office Visit [facility] [address] [facility] [place] [address] [place] [phone] Refugio Sahu APRN [address] [facility] [address] [place], [place] [id number] Systemic lupus erythematosus, unspecified SLE type, unspecified organ involvement status (Primary Dx); High risk medication use; Alopecia Social History Tobacco Use Types Packs/Day Years [...] 03/29/2024 3:29 PM ED T Respiratory Rate - - Oxygen Saturation - - Inhaled Oxygen Concentration - - Weight 73.6 kg (162 lb 3.2 oz) 03/29/2024 3:29 P M EDT Height 172.7 cm (5' 8 ) 03/29/2024 3:29 PM EDT Body Mass Index 24.66 03/29/2024 3:29 PM EDT documented in this encounter Progress Notes * Refugio Sahu APRN - 03/29/2024 4:10 PM EDTAssociated Problem(s): Alopecia Dr. Rivera started clobetasol solution. Improving. Slowly regrowing. * Refugio Sahu APRN - 03/29/2024 3:45 PM EDT Images from the original note were not included. Office Visit Date: 03/29/2024 Patient Name: Kristin Galindo Date of : 1985 Referring Physician: Provider, No Known Chief Complaint: Chief Complaint Patient presents with Follow-up Lupus Osteoarthritis Sjogren's sybdrome History of Present Illness: Kristin Galindo is a 39 y.o. female who is here today for follow-upof systemic lupus.. Today she reports her pain is 0 out of 10 and she denies any morning stiffness.She feeling better. She has been started on the Otezla. We prescribed her Cimzia. She declines the need for refills today. Subjective Review of Systems: She denies all symptoms on the review of symptoms page. Past Medical History: Past Medical History: Diagnosis Date Anemia Anxiety Eczema Hair loss Myalgia Psoriasis Varicose veins during Past Surgical History: Past Surgical History: Procedure Laterality Date BREAST LUMPECTOMY SECTION ENDOMETRIAL ABLATION ESSURE TUBAL LIGATION Family History: Family History Problem Relation Age of Onset Lupus Mother Rheum arthritis Mother Crohn's disease Father Social History: Social History Socioeconomic History Marital status: Tobacco Use Smoking status: Every Day Current packs/day: 0.50 Average packs/day: 0.5 packs/day for 10.0 years (5.0 ttl pk-yrs) Types: Cigarettes Smokeless tobacco: Never Vaping Use Vaping status: Every Day Substances: Nicotine Devices: Disposable Substance and Sexual Activity Alcohol use: Yes Comment: social Drug use: No Sexual activity: Defer control/protection: None Medications: Current Outpatient Medications: Apremilast (Otezla) 30 MG tablet, Take 30 mg by mouth 2 (Two) Times a Day., Disp: , Rfl: cetirizine (zyrTEC) 10 MG tablet, Take 1 tablet by mouth Daily., Disp: , Rfl: diphenhydrAMINE (BENADRYL) 25 mg capsule, Take 1 capsule by mouth 2 (Two) Times a Day., Disp: , Rfl: DULoxetine HCl (DRIZALMA) 30 MG capsule, Take 1 capsule by mouth Daily., Disp: 30 capsule, Rfl: 3 fluocinonide (LIDEX) 0.05 % ointment, Apply 1 Application topically to the appropriate area as directed 1 (One) Time Per Week., Disp: , Rfl: mycophenolate (CELLCEPT) 500 MG tablet, Take 2 tablets by mouth 2 (Two) Times a Day., Disp: 120 tablet, Rfl: 1 triamcinolone (KENALOG) 0.1 % ointment, Apply 1 Application topically to the appropriate area as directed At Night As Needed., Disp: , Rfl: Polypodium Leucotomos (Heliocare) 240 MG capsule, Take by mouth. (Patient not taking: Reported on 03/29/2024), Disp: , Rfl: Allergies: No Known Allergies I have reviewed and updated the patient's chief complaint, history of present illness, review of systems, past medical history, surgical history, family history, social history, medications and allergy list as appropriate. Objective Vital Signs: Vitals: 03/29/24 1529 BP: 124/78 BP Location: Left arm Pulse: 91 Temp: 98.7 ??F (37.1 ??C) Weight: 73.6 kg (162 lb 3.2 oz) Height: 172.7 cm (68 ) PainSc: 0-No pain Body mass index is 24.66 kg/m??. BMI is within normal parameters. No other follow-up for BMI required. Physical Exam: Physical Exam Vitals reviewed. Constitutional: Appearance: Normal appearance. HENT: Head: Normocephalic and atraumatic. Mouth/Throat: Mouth: Mucous membranes are moist. Eyes: Conjunctiva/sclera: Conjunctivae normal. Cardiovascular: Rate and Rhythm: Normal rate and regular rhythm. Pulses: Normal pulses. Heart sounds: Normal heart sounds. Pulmonary: Effort: Pulmonary effort is normal. Breath sounds: Normal breath sounds. Musculoskeletal: General: Normal range of motion. Cervical back: Normal range of motion and neck supple. Comments: No synovitis No tenderness Bilateral knee crepitus Skin: General: Skin is warm and dry. Neurological: General: No focal deficit present. Mental Status: She is alert and oriented to person, place, and time. Mental status is at baseline. Psychiatric: Mood and Affect: Mood normal. Behavior: Behavior normal. Thought Content: Thought content normal. Judgment: Judgment normal. Results Review: Imaging Results (Last 24 Hours) No results found for the last 24 hours. Procedures Assessment / Plan Assessment/Plan: Diagnoses and all orders for this visit: 1. Systemic lupus erythematosus, unspecified SLE type, unspecified organ involvement status (Primary) Assessment & Plan: Positive direct Eloise. Dsdna +. Other serologies negative. 09/30 1:160 [...] +. Blue Lizard. No tanning bed ?PSA Orders: - C4+C3; Future - dsDNA Antibody by IFA, Norbertoa luciliae, with Reflex to Titer; Future - Urinalysis With Microscopic If Indicated (No Culture) - Urine, Clean Catch; Future - Comprehensive Metabolic Panel; Future - CBC With Manual Differential; Future 2. High risk medication use Assessment & Plan: Cellcept Labs every 2-3 months Orders: - Comprehensive Metabolic Panel; Future - CBC With Manual Differential; Future 3. Alopecia Assessment & Plan: Dr. Rivera started clobetasol solution. Improving. Slowly regrowing. Follow Up: Return in about 4 months (around 07/29/2024) for Dr. Membreno. Refugio Sahu APRN [facility] [place] * Refugio Sahu APRN - 03/28/2024 1:05 PM EDTAssociated Problem(s): High risk medication use Cellcept Labs every 2-3 months * Refugio Sahu APRN - 03/28/2024 1:05 PM EDTAssociated Problem(s): Primary osteoarthritis involving multiple joints Knees. She has had severe OA of knees for quite some time L knee replacement has been suggested. Has been getting PRP for 2 years with steroid inj every 4 months Moderate arthritis of all three compartments in knees. Needs L knee replacement per patient. Dr. Grimaldo. She saw Dr. Navarro - postponing replacements. * Refugio Sahu APRN - 03/28/2024 1:05 PM EDTAssociated Problem(s): Elevated liver function tests To her knowledge, she has never had liver issues in the past. Denies any infection at the time of the blood draw. 03/01 - Alk phos normal, AST 366(36), ALT 149 (35). Anti smooth muscle and Mitochondrial negative- 06/01 1 episode of significant LFT elevation - no etiology found. Normal 05/02 05/02 WBC 3.7(3.8) * Refugio Sahu APRN - 03/28/2024 1:04 PM EDTAssociated Problem(s): Vitamin B 12 deficiency 119 451 in 03/2023 Continue on Monthly B12. * Refugio Sahu APRN - 03/28/2024 1:04 PM EDTAssociated Problem(s): Raynaud's disease without gangrene Positive color change - white only She feels this is worsening as the weather cools. Amlodipine did cause swelling in her feet in the past. Hot hands and insoles. Keep extremities warm. Hot hands from [employer] - Hands and feet. * Refugio Sahu APRN - 03/28/2024 1:04 PM EDTAssociated Problem(s): Other fatigue Sleep interrupted by back pain. TSH normal 11/29. Vit D normal B12 low. Continue injections * Refugio Sahu APRN - 03/28/2024 1:03 PM EDTAssociated Problem(s): Osteoarthritis of lumbar spine DDD. S/p L4-5 herniation. S/p 3 surgeries. Currently seeing [facility]. No surgery recommended. Seeing [facility] for treatment of chronic pain. [...] spinal stimulator , pain med and PT. * Refugio Sahu APRN - 03/28/2024 1:03 PM EDTAssociated Problem(s): Sjogren's syndrome Diagnosed with positive lip biopsy in 2004. On Plaquenil for joint pain. Positive episodes of parotitis. Sx responded to steroids. Ssa + Stable. Some parotitis since last OV- Mild tenderness since last ov. Continue plaquenil. Medrol dose kaiser for parotitis. Biotene or ACT toothpaste. Biotene or ACT mouth rinse. Xylimelts - [facility], [employer]. [place] spray from [facility] for mouth dryness (amazon) Plenty of fluids. If no Asthma or COPD there are two prescriptions available. Evoxac or Pilocarpine. * Refugio Sahu APRN - 03/28/2024 1:03 PM EDTAssociated Problem(s): Systemic lupus erythematosus Positive direct Eloise. Dsdna +. Other serologies negative. 09/30 1:160 [...] +. Blue Lizard. No tanning bed ?PSA documented in this encounter Plan of Treatment Upcoming Encounters Date Type Department Care Team (Late st Contact Info) Description 08/23/2024 8:40 AM EST Office Visit [facility] RHE[facility]Y [address] [place] [phone] Sandra Membreno MD [address] [place] [address] [place] [id number] documented as of this encounter Results * Comprehensive Metabolic Panel (03/29/2024 4:19 PM EDT) Glucose 78 65 - 99 mg/dL 03/29/2024 11:44 PM EDT [facility] BUN 6 6 - 20 mg/dL 03/29/2024 11:44 PM EDT [facility] Creatinine 0.65 0.57 - 1.00 mg/dL 03/29/2024 11:44 PM [facility] Sodium 139 136 - 145 mmol/L 03/29/2024 11:44 PM [facility] Potassium 4.2 3.5 - 5.2 mmol/L 03/29/2024 11:44 PM [facility] Chloride 105 98 - 107 mmol/L 03/29/2024 11:44 PM [facility] CO2 22.5 22.0 - 29.0 mmol/L 03/29/2024 11:44 PM [facility] Calcium 9.2 8.6 - 10.5 mg/dL 03/29/2024 11:44 PM [facility] Total Protein 6.7 6.0 - 8.5 g/dL 03/29/2024 11:44 PM [facility] Albumin 4.1 3.5 - 5.2 g/dL 03/29/2024 11:44 PM [facility] ALT (SGPT) 24 1 - 33 U/L 03/29/2024 11:44 PM [facility] AST (SGOT) 28 1 - 32 U/L 03/29/2024 11:44 PM [facility] Alkaline Phosphatase 63 39 - 117 U/L 03/29/2024 11:44 PM [facility] Total Bilirubin <0.2 0.0 - 1.2 mg/dL 03/29/2024 11:44 PM [facility] Globulin 2.6 gm/dL 03/29/2024 11:44 PM [facility] A/G Ratio 1.6 g/dL 03/29/2024 11:44 PM [facility] BUN/Creatinine Ratio 9.2 7.0 - 25.0 03/29/2024 11:44 PM [facility] Anion Gap 11.5 5.0 - 15.0 mmol/L 03/29/2024 11:44 PM EDT [facility] eGFR 115.0 >60.0 mL/min/1.7 3 03/29/2024 11:44 PM EDT [facility] Blood Venipuncture / Unknown 03/29/2024 4:19 PM EDT 03/29/2024 4:35 PM EDT Narrative [facility] - 03/29/2024 11:44 PM EDT GFR Normal >60 Chronic Kidney Disease <60 Kidney Failure <15 us Refugio Sahu BUSINESS CONTROLLER LAB BLOOD ORDERABLES F inal Result [facility]
[address] [place] [address], * Urinalysis With Microscopic If Indicated (No Culture) - Urine, Clean Catch (03/29/2024 4:19 PM EDT) Color, UA Yellow Yellow, Straw 03/29/2024 11:49 PM EDT [facility] Appearance, UA Clear Clear 03/29/2024 11:49 PM EDT [facility] pH, UA 7.0 5.0 - 8.0 03/29/2024 11:49 PM EDT [facility] Specific [place], UA 1.006 1.005 - 1.030 03/29/2024 11:49 PM EDT [facility] Glucose, UA Negative Negative 03/29/2024 11:49 PM EDT [facility] Ketones, UA Negative Negative 03/29/2024 11:49 PM EDT [facility] Bilirubin, UA Negative Negative 03/29/2024 11:49 PM EDT [facility] Blood, UA Negative Negative 03/29/2024 11:49 PM EDT [facility] Protein, UA Negative Negative 03/29/2024 11:49 PM EDT [facility] Leuk Esterase, UA Negative Negative 03/29/2024 11:49 PM EDT [facility] Nitrite, UA Negative Negative 03/29/2024 11:49 PM EDT [facility] Urobilinogen, UA 0.2 E.U./dL 0.2 - 1.0 E.U./dL 03/29/2024 11:49 PM EDT [facility] Urine Urine specimen obtained by clean catch procedure / Unknown Collection / Unknown 03/29/2024 4:19 PM EDT 03/29/2024 4:35 PM EDT Narrative [facility] - 03/29/2024 11:49 PM EDT Urine microscopic not indicated. Refugio Sahu BUSINESS CONTROLLER URINE ORDERABLES Final Result [facility]
[address] [place] [address], [place] [phone] * dsDNA Antibody by IFA, Crithidia luciliae, with Reflex to Titer (03/29/2024 4:19 PM EDT) dsDNA Crithidia Luciliae IFA Negative Negative 04/03/2024 8:19 AM EDT [facility] Blood Venipuncture / Unknown 03/29/2024 4:19 PM EDT 03/29/2024 4:35 PM EDT [facility] - 04/03/2024 8:19 AM EDT Performed at: ??[address] - [address] ??[id number] [employer] Cutter [employer] Shape Carver: Felipe Mcgovern PhD, Phone: ??[phone] Refugio Sahu BUSINESS CONTROLLER LAB BLOOD ORDER ONLY F inal Result [facility] [address] [place] [address], [place] [phone] * C4+C3 (03/29/2024 4:19 PM EDT) C3 Complement 117.0 82.0 - 167.0 mg/dl 03/29/2024 11:45 PM EDT [facility] C4 Complement 23.0 14.0 - 44.0 mg/dl 03/29/2024 11:45 PM EDT [facility] Blood Venipuncture / Unknown 03/29/2024 4:19 PM EDT 03/29/2024 4:35 PM EDT Refugio Sahu BUSINESS CONTROLLER LAB BLOOD ORDERABLES F inal Result [facility]
[address] [place] [address], documented in this encounter Visit Diagnoses Diagnosis Systemic lupus erythematosus, unspecified SLE type, unspecified organ involvement status- Primary High risk medication use Alopecia documented in this encounter Care Teams Drop Board Worker Relationship Specialty Start Date End Date Luis Daniels MD PCP - General Neurology 08/05/16 documented as of this encounter
--- OUTSIDE RECORDS SUMMARY | 2024-06-05 16:38 | XMS_ITS | Data Portability ---
Author Organization [facility] Horace leiva, [facility] Address [address] [facility] [address] [place] [address] Care Team Providers Care Commercial Loan Officer Name Role Phone SHAHEEN GARCIA Outbound Supervisor SIVAKUMAR GALICIA Primary Care Provider [phone] Assessment No assessment recorded. Plan of Treatment Reminders Order Date Submit Date Provider Last Modified By Organization Details Last Modified Time Details Appointments FOLLOW UP DAK 2024 08:30A M SHAHEEN RIVERA MD Not available Not available Not available Lab None recorded. Referral None recorded. Procedures None recorded. Surgeries None recorded. Imaging None recorded. Medication Orders triamcino lone acetonide 0.1 % topical ointment 2023 024 [email or web address] [facility] [address] [place], [address], 11/02/2023 19:20:17 Patient TargetsNo targets recorded. Patient Instructions Encounter Date Encounter Id Patient Instructions Last Modified By Organization Details Last Modified Time 05/22/2024 [id number] Recommended returning to clinic in 4 months for fu [email or web address] Not available 05/22/2024 08:56:52 Reason for Referral None Reported. Medical Equipment None Reported. Allergies No known drug allergies Medications Name Sig Start Date Stop Date Status Note LastModified by Organization Details LastModified Time triamcinolone acetonide 0.1 % topical ointment 2x daily for up to 2 weeks, take one week break, repeat as needed 2023 active Not Available Not Available Not Avai lable dexamethasone active Not Available Not Available Not Available CellCept active Not Available Not Avai lable Not Available Otezla 30 mg tablet one po bid 2023 active Not Available Not Available Not Avai lable Vitals Date Recorded Body height Body mass index (BMI) Body weight Heart rate Oxygen saturation Oxygen saturation in Arterial blood by Pulse oximetry Systolic blood pressure Diastolic blood pressure Provider Name and Address Organization Details Last Updated DateTime 4 170.18 cm 25.3 kg/m2 42542.7 7 g 79 /min 100 % 100 % 104 mm[Hg] 68 mm[Hg] October [facility] 07:22:13 Social History Question Answer Notes LastModified by Organizat ion Details LastModified Time Tobacco Smoking Status [facility] 11/02/2023 11:41:08 What Is Your Level Of Alcohol Consumption? Occasional [email or web address] Information not available 11/02/2023 What Was The Date Of Your Most Recent Tobacco Screening? 05/22/2024 [email or web address] Information not available 05/22/2024 Do You Or Have You Ever Used Any Other Forms Of Tobacco Or Nicotine? No Information not available 05/22/2024 Sex: Female Functional Status None recorded. Mental Status None recorded. Family History Relationship Description Onset Age of this Age Resolved Age Notes LastModified by Organization Details LastModified Time Father No current problems or disability [email or web address] Not available 11/01 11:40:53 Mother No current problems or disability [email or web address] Not available 11/01 11:40:53 Medical History Condition Response Other N Kidney Stones N Blood Transfusion N Hernia N Emphysema N Glaucoma N Depression N COPD N Pneumonia N Nasal or Sinus Problems Y Measles N Venereal Disease N Genitourinary Disease N Seasonal Allergies Y Anxiety Disorder N Hearing Loss N Arthritis Y Previous injury to face N Blood Clot N Cancer N Stroke N Radiation Therapy N High Cholesterol N Neurologic Disorder N Liver Disease N Panic Disorder N Headaches N Kidney Disease N Allergies/Hayfever Y Heart Problems N Mumps N Hospitalizations N Migraines N Thyroid Problems N GI Problems Y Meningitis N Heart Attack ([place]) N Ulcers N Other Skin Condition Y Psychiatric Illness N Diabetes N Rheumatic Fever N Rhinitis N Bleeding Disorder N Tuberculosis N AIDS/HIV N Hyperlipidemia N Asthma N Nasal polyps Y Hepatitis B N Rubella N Epilepsy/Seizures N GERD/Reflux N Hypertension N Chicken Pox Y Osteoporosis N Gynecological HistoryNo gynecological history recorded. Obstetrics History GPAL:G 0 P 0 0 0 0 Past Encounters Encounter ID Performer Location Encounter Start Date Encounter Closed Date Diagnosis/Indication Diagnosis SNOMED-CT Code Diagnosis ICD10 Code [id number] SHAHEEN RIVERA MD [address] [phone] 11/02/2023 11:17:30 11/03/2023 04:25:24 Atopic dermatitis 32434038 L20.89 L40.0 L40.50 Z79.69 [id number] SHAHEEN RIVERA MD [facility] [address] [place] [address] 05/22/2024 07:46:17 05/22/2024 09:00:22 Atopic dermatitis 25917175 L20.89 L40.0 L40.50 Z79.69 [id number] HARISH GARCIA MD [facility] [address] [facility] [place] [phone] 05/25/2024 07:06:01 05/26/2024 04:08:23 Adverse reaction to food 799926468 T78.1XXA Adverse re action to drug 51126138 T50.905A Recurrent acute sinusitis 848906337 J01.91 Atopic dermatitis 246219 01 L20.9 Psoriasis 0334928 L40.9 Chronic rhinitis 2711947 6 J31.0 Health Concerns Section Related Observation LastModified by Organization Detai ls LastModified Time None Recorded Concern Status LastModified by Organization Details LastModified Time None Recorded Advance Directives Directive None Recorded Payers Encounter Date Sequence Insurance Name Policy Number Policy Parsons Covered Member ID Parsons Member ID Guarantor Name 11/02/2023 1 [place] [id number] 4 Kristin Howard Mateo [id number] Kristin E Mateo 05/22/2024 1 [place] [id number] Kristin Lee Mateo [id number] Kristin E Mateo 05/25/2024 1 [place] [id number] 4 Kristin Galindo [id number] Kristin Galindo Notes Date Note Type Note Provider Name and Address Organization Details Recorded Time 11/02/2023 text/html Patient is here for psoriasis - location: hands - treatments tried in past: Cellcept, heliocare, calcium, vitamin d - currently using: dexamethasone, TAC, fluocinonide, L histidine, claritin - hot, tender joints, stiffness in joints lasting longer than an hour, or pain in the Achilles tendon? stiffness in hands - reports: blisters on hands SHAHEEN RIVERA MD [address] [place] [address], [phone], [facility] 11/02/2023 14:37:31 05/22/2024 text/html Patient is here for Atopic Dermatitis - location: hands- treatments tried in past: Cellcept, heliocare, calcium, vitamin d- currently using: Cellcept, dexamethasone, TAC, fluocinonide, L histidine, claritin, Otezla, TAC ointment- hot, tender joints, stiffness in joints lasting longer than an hour, or pain in the Achilles tendon? No- reports: small blisters on hands. -Pt state her DAVID was negative the last test that she had done. SHAHEEN RIVERA MD [address] [place] [address], [phone], [facility] 05/22/2024 19:45:56 05/25/2024 text/html Mrs Galindo is a 39 years old {{female* male}} who is being seen in consultation for allergy at the request of Dr. Rivera. Allergic rhinitis: Patient lives in [place] for almost all her life. Patient has allergy for many years. Symptoms include nasal congestion, rhinorrhea, sneezing, watery eyes, post nasal drip and cough. Patient tried zyrtec, claritin, flonase and benadryl with some help.sinus or throat Infections: 2-3 times per year, prolonged sickness due to cellceptSymptoms triggers: pollen moldSeasonal pattern: all year round Food allergy: Patient reports hives after eating certain acidic food such as pineapple, tomato, and coconut. She also noticed eczema flare up after eating those food. Eczema: Patient has severe persisent eczema since 3 years old. It affects all over her body. She was seen dermatology since young. She tried multiple topical steroid or nonsteroid cream. She was on dupixent for 2 years and developed psoriasis. Then she switched to Adbry, and developed possible lupus. She was then referred to arthritic center at [place]. She was told she did not have lupus. She is on cellcept for eczema, which helped. She is also on Otezla for psoriasis. Drug allergy: no GERD: no symptoms of heart burn, no hx of anti-acid medication use Family history: mom has lupus History provided by patientNasal/Ocular: see aboveRespiratory: {{see above no hx of asthma*}}Skin: {{see above* no hx of eczema}} Food: {{see above* no hx of food allergy}}Insect: no hx of anaphylaxis with insect stingsInfection Hx: {{see above* no recurrent infections}} Environmental HistoryHome: {{single family house* apartment}}Pets : {{dog cat}}Air Conditioning: Central electric AC, Gas heatLiving Room: {{carpet non-carpet}}B edroom: {{carpet non-carpet}}S moke Exposure: {{no exposure 1 pack a day for years 2nd hand smoke exposure}}Irritants: noOccupation: HARISH GARCIA MD [address] [place], [phone], [facility] 05/25/2024 08:40:22 OBGyn Episode No OBEpisode recorded.
--- OUTSIDE RECORDS SUMMARY | 2024-06-05 16:38 | XMS_ITS | Continuity of Care Document ---
Author Organization [facility], [place] Address [address] [place] [address] Care Team Providers Care Access Control Officer Name Role Phone SHAHEEN GARCIA Magazine Publisher SIVAKUMAR GALICIA Primary Care Provider Assessment No assessment recorded. Plan of Treatment Reminders Order Date Submit Date Provider Last Modified By Organization Details Last Modified Time Details Appointments FOLLOW UP [facility] 2024 08:30A M SHAHEEN RIVERA MD Not available Not available Not available Lab None recorded . Referral None recorded . Procedures None recorded . Surgeries None recorded . Imaging None recorded . Medication Orders None recorded . Patient TargetsNo targets recorded. Patient InstructionsNo instructions recorded. Reason for Referral None Reported. Medical Equipment [...] Updated DateTime 4 170.18 cm 25.3 kg/m2 97318.7 7 g 79 /min 100 % 100 % 104 mm[Hg] 68 mm[Hg] October [facility] 07:22:13 Social History Question Answer Notes LastModified by Organizat ion Details LastModified Time Tobacco Smoking Status Never Smoker [facility] 11/02/2023 11:41:08 What Is Your Level Of Alcohol Consumption? Occasional [email or web address] Information not available 11/02/2023 What Was The Date Of Your Most Recent Tobacco Screening? 05/22/2024 Information not available 05/22/2024 Do You Or Have You Ever Used Any Other Forms Of Tobacco Or Nicotine? No [email or web address] Information not available 05/22/2024 Sex: Female Functional [...] N Kidney Stones N Blood Transfusion N Emphysema N Hernia N Depression N COPD N Glaucoma N Pneumonia N Nasal or Sinus Problems Y Measles N Venereal Disease N Genitourinary Disease N Seasonal Allergies Y Anxiety Disorder N Arthritis Y Hearing Loss N Previous injury to face N Blood Clot N Cancer N Stroke N Radiation Therapy N High Cholesterol N Neurologic Disorder N Liver Disease N Headaches N Panic Disorder N Kidney Disease N Allergies/Hayfever Y Heart Problems N Mumps N Hospitalizations N Migraines N Thyroid Problems N GI Problems Y Meningitis N Ulcers N Heart Attack ([place]) N Other Skin Condition Y Psychiatric Illness N Diabetes N Rhinitis N Rheumatic Fever N Bleeding Disorder N Tuberculosis N AIDS/HIV N Hyperlipidemia N Nasal polyps Y Asthma N Hepatitis B N Rubella N Epilepsy/Seizures N GERD/Reflux N Hypertension N Chicken Pox Y Osteoporosis N Gynecological HistoryNo gynecological history recorded. Obstetrics History GPAL:G 0 P 0 0 0 0 Past Encounters Encounter ID Performer Location Encounter Start Date Encounter Closed Date Diagnosis/Indication Diagnosis SNOMED-CT Code Diagnosis ICD10 Code [id number] SHAHEEN RIVERA MD [address] [place] [address] 05/22/2024 07:46:17 05/22/2024 09:00:22 Atopic dermatitis 71155744 L20.89 L40.0 L40.50 Z79.69 [id number] HRAISH GARCIA MD [facility] [address] [facility] [address] [place] [address] 05/25/2024 07:06:01 05/26/2024 04:08:23 Adverse reaction to food 058943675 T78.1XXA Adverse re action to drug 63425781 T50.905A Recurrent acute sinusitis 384158323 J01.91 Atopic dermatitis 946233 01 L20.9 Psoriasis 3817107 L40.9 Chronic rhinitis 9149163 6 J31.0 Health Concerns Section Related Observation LastModified by Organization Detai ls LastModified Time None Recorded Concern Status LastModified by Organization Details LastModified Time None Recorded Payers Encounter Date Sequence Insurance Name Policy Number Policy Parsons Covered Member ID Parsons Member ID Guarantor Name 05/25/2024 1 [place] Context Relevant (PPO) [id number] 4 Kristin Galindo [id number] Kristin Galindo Notes Date Note Type Note Provider Name and Address Organization Details Recorded Time 05/25/2024 text/html Mrs Galindo is a 39 years old {{female* male}} who is being seen in consultation for allergy at the request of Dr. Rivera. Allergic rhinitis: Patient lives in [place] for almost all her life. Patient has [...] was then referred to arthritic center at [place]. She was told she did not have [...] smoke exposure}}Irritants: noOccupation: HARISH GARCIA MD [address] [place], [address], [facility] 05/25/2024 08:40:22 OBGyn Episode No OBEpisode recorded.
--- OUTSIDE RECORDS SUMMARY | 2024-06-05 16:38 | XMS_ITS | Continuity of Care Document ---
Author Organization [facility] RABIA [place] Address [address] [place] [address] Care Team Providers Care Private Duty Nurse Name Role Phone SHAHEEN GARCIA Surveillance Sensor Officer SIVAKUMAR GALICIA Primary Care Provider Assessment No assessment recorded. Plan of Treatment Reminders Order Date Submit Date Provider Last Modified By Organization Details Last Modified Time Details Appointments FOLLOW UP [facility] 2024 08:30A M SHAHEEN TRAMMELL MD Not available Not available Not available Lab None recorded . Referral None recorded . Procedures None recorded . Surgeries None recorded . Imaging None recorded . Medication Orders None recorded . Patient TargetsNo targets recorded. Patient Instructions Encounter Date Encounter Id Patient Instructions Last Modified By Organization Details Last Modified Time 05/22/2024 [id number] Recommended returning to clinic in 4 months for fu [email or web address] Not available 05/22/2024 08:56:52 Reason for Referral [...] Available Not Available Not Avai lable Vitals None Recorded Social History Question Answer Notes LastModified by Organizat ion Details LastModified Time Tobacco Smoking Status Never Smoker Saba ferrer [facility] 11/02/2023 11:41:08 What Is Your Level [...] Y Meningitis N Ulcers N Heart Attack ([place]) N Other Skin Condition Y Psychiatric Illness [...] Diagnosis/Indication Diagnosis SNOMED-CT Code Diagnosis ICD10 Code [id number] SHAHEEN TRAMMELL MD [address] [address] [place] [address] 05/22/2024 07:46:17 05/22/2024 09:00:22 Atopic dermatitis 60819463 L20.89 L40.0 L40.50 Z79.69 Health Concerns Section Related Observation LastModified by Organization Detai ls LastModified Time None Recorded Concern Status LastModified by Organization Details LastModified Time None Recorded Payers Encounter Date Sequence Insurance Name Policy Number Policy Parsons Covered Member ID Parsons Member ID Guarantor Name 05/22/2024 1 [place] [id number] 4 Kristin Galindo [id number] Kristin Galindo Notes Date Note Type Note Provider Name and Address Organization Details Recorded Time 05/22/2024 text/html Patient is here for Atopic [...] last test that she had done. SHAHEEN TRAMMELL MD [address] [place] [address], [phone], [facility] 05/22/2024 19:45:56 OBGyn Episode No OBEpisode recorded.
--- OUTSIDE RECORDS SUMMARY | 2024-06-05 16:38 | XMS_ITS | Encounter Summary ---
Author Organization [facility] Address [address] [place] [address] Care Team Providers Care Landscape Architect And Planner Name Role Phone Luis Daniels MD Primary Care Provider Reason for Visit * Reason Comments Med Refill Encounter Details Date Type Department Care Team (Late st Contact Info) Description 05/14/2024 Refill [facility] RHE[facility] [address] [address] Sandra Membreno MD [address] [facility] [address] [place] [address] Social History Tobacco Use Types Packs/Day Years [...] Description 08/23/2024 8:40 AM EST Office Visit [facility] [address] [address] Sandra Membreno MD [address] [place] [address] [place] [address] documented as of this encounter Visit Diagnoses Not on filedocumented in this encounter Care Teams Landscape Architect And Planner Relationship Specialty Start Date End Date Luis Daniels MD PCP - General Neurology 08/05/16 documented as of this encounter
--- OUTSIDE RECORDS SUMMARY | 2024-06-05 16:38 | XMS_ITS | Encounter Summary ---
Author Organization [facility] Address [address] [place] [address] Care Team Providers Care Shingle Shearing Machine Operator Name Role Phone Luis Daniels MD Primary Care Provider [phone] Reason for Visit * Reason Onset Date Comments Results 04/02/2024 Encounter Details Date Type Department Care Team (Late st Contact Info) Description 02/20/2024 Telephone [facility] [address] [address] Sandra Mitchell MD 3000 [facility] [address] [place], [place] [id number] Results Social History Tobacco Use Types Packs/Day Years [...] encounter Miscellaneous Notes * Telephone Encounter - Maggie Hodges MA - 04/02/2024 12:12 PM EDT Sending lab letter to Pt. * Telephone Encounter - Marina Ramos RegSched Rep - 02/20/2024 2:[address] MITCHELL CANCELED DUE TO SCHEDULING ISSUES. documented in this encounter Plan of Treatment Upcoming Encounters Date Type Department Care Team (Late st Contact Info) Description 08/23/2024 8:40 AM EST Office Visit [facility] RHEUM[facility] [address] [place] [address] Sandra Mitchell MD [address] [place], [place] [address] [address] [place] [address] documented as of this encounter Visit Diagnoses Not on filedocumented in this encounter Care Teams Shingle Shearing Machine Operator Relationship Specialty Start Date End Date Luis Daniels MD PCP - General Neurology 08/05/16 documented as of this encounter
--- OUTSIDE RECORDS SUMMARY | 2024-06-05 16:38 | XMS_ITS | Encounter Summary ---
Author Organization [facility] Address [address] [place] [address] Care Team Providers Care Drone Software Development Engineer Name Role Phone Luis Daniels MD Primary Care Provider Reason for Visit * Reason Onset Date Comments Med Refill 03/21/2024 Encounter Details Date Type Department Care Team (Late st Contact Info) Description 03/21/2024 Refill [facility] [address] [address] Sandra Membreno MD [address] [facility] [address] [place] [address] Social History Tobacco Use Types Packs/Day Years [...] encounter Miscellaneous Notes * Telephone Encounter - Sarah Bee RegSched Rep - 03/21/2024 3:27 PM EDT Caller: [facility] Relationship: PHARMACY Best call back number: Requested Prescriptions: Requested Prescriptions Pending Prescriptions Disp Refills mycophenolate (CELLCEPT) 500 MG tablet Sig: Take by mouth 2 (Two) Times a Day. Pharmacy where request should be sent: [facility] RADHA YUSUF [address] - [phone] - [phone] FX Last office visit with prescribing clinician: Visit date not found Last telemedicine visit with prescribing clinician: Visit date not found Next office visit with prescribing clinician: Visit date not found Additional details provided by patient: Does the patient have less than a 3 day supply: [] Yes [] No Would you like a call back once the refill request has been completed: [] Yes [] No If the office needs to give you a call back, can they leave a voicemail: [] Yes [] No Princess Mazariegos 03/21/24 15:29 EDT documented in this encounter Plan of Treatment Upcoming Encounters Date Type Department Care Team (Late st Contact Info) Description 08/23/2024 8:40 AM EST Office Visit [facility] RHEUMATOLOGY [address] [address] Sandra Membreno MD [address] [place] [address] [place] [id number] documented as of this encounter Visit Diagnoses Not on filedocumented in this encounter Care Teams Drone Software Development Engineer Relationship Specialty Start Date End Date Luis Daniels MD PCP - General Neurology 08/05/16 documented as of this encounter
--- OUTSIDE RECORDS SUMMARY | 2024-06-05 16:38 | XMS_ITS | Patient Health Record ---
[facility] Address [address] [id number] Care Team Providers Care Auto Brake Technician Name Role Phone Mario Daniels Primary Care Provider Chiquis Starr Unavailable [phone] Jasbir Garrison Unavailable [phone] ALLERGIES Allergen (clinical drug ingredient) Drug/Non Drug [...] 1 Abdominal pain (R10. 9) [facility] Referring Provider First Name Chiquis Referring Provider [...] to Dr. Bourgeois office Referral Priority Routine MEDICATIONS Medication SIG (Take, Route, Frequency, Duration) Notes Start Date End Date Status Hyoscyamine Sulfate 0.125 MG 1 tablet as needed Orally Four times a day 06/04/2024 Active Otezla 30 MG 1 tablet Orally Twic e a day for 30 day(s) Active CellCept 250 MG 4 caps daily A ctive IMMUNIZATIONS Vaccine Route Administration Date Status Comme nts xFluzone Intradermal (18-64yrs)-trivalent ID Intradermal 04/10/2013 Administered xFlu shot- 6months-36 months of zld-NCFS-AVAS-trivalent IM Intramuscular 04/17/2012 Administered Fluzone Quad (6months&older) Unknown 04/05/2017 Administered COVID 19 Moderna Unknown 09/03/2020 Administered COVID 19 Moderna Unknown 10/01/2020 Administered SOCIAL HISTORY Sex Assigned At : Social History Observation Description Sex Assigned At Unknown PROBLEMS Problem Type ICD Code Onset Dates Problem Status W/U Status Risk SNOMED Code Notes Problem eczema (692.9) Active confirmed Eczema (59004683) Problem Anemia NOS (285.9) Active confirmed Anemia (509693294) Problem INSOMNIA NOS (780.52) Active confirmed Insomnia (262893336) Problem Hypoglycemia (E16.2) Active confirmed Hypoglycemia (653816913) Problem Dysthymic disorder (F34.1) Active confirmed Dysthymia (64241287) Problem Eczema, unspecified type (L30.9) Active confirmed 28080651 Problem Adjustment disorder with anxious mood (F43.22) Active confirmed 39565353 Problem Atopic dermatitis, unspecified type (L20.9) Active confirmed 99840286 VITAL SIGNS Heart Rate 85 /min 06/04/2024 Blood pressure diastolic 68 mm Hg 06/04/2024 Height 67.50 in 06/04/2024 Blood pressure systolic 104 mm Hg 06/04/2024 Weight 162.2 lbs 06/04/2024 BMI 25.03 kg/m2 06/04/2024 Encounters Encounter Location Date Provider Diagnosis [facility] [address] [facility] [address] [facility] [address] NGOZI Sheikh [id number] 10/31/2023 Jasbir Edcouch Rash R21 [facility] [address] [facility] [address] NGOZI Sheikh [id number] 06/04/2024 Chiquis Starr Abdominal pain R10.9 ; Diarrhea R19.7 and Eczema, unspecified type L30.9 ASSESSMENTS Encounter Date Diagnosis Assessment Notes Treatment Notes Treatment Clinical Notes 10/31/2023 Rash (ICD-10 - R21) Patient to see her planning consultant in 2 days 06/04/2024 Abdominal pain (ICD-10 - R10.9) GI consult; suggested blnd diet and no Pop 06/04/2024 Diarrhea (ICD-10 - R19.7) will try levsin to see if this decreases diarrhea 06/04/2024 Eczema, unspecified type (ICD-10 - L30.9) PLAN OF TREATMENT Pending Test Test Name Order Date Complete Metabolic Profile 06/04/2024 TSH+Free T4 06/04/2024 Diarrhea Panel ([facility]) 06/04/2024 Insurance Providers Payer Name Payer Address Payer Phone Subscriber Number Group Number Insured Name Patient Relationship to Insured Coverage Start Date Coverage End Date FABIOLA HU [facility] [address] [place] [address] [id number] Kristin Galindo Self - patient is the insured MEDICAL (GENERAL) HISTORY Medical History History ICD Code Eczema, since childhood, followed by muhammad Surgical History Surgery Date(Month/Year) C section 2003 Breast Biopsy x 2 12/12, 02/11 C section 2005 C section 2013 Utrerine Ablation 02/2017 Hospitalization History Reason Date(Month/Year) Child - [facility] 09/29/2012 Child - [facility] 10/25/2003 Child - [facility] 12/03/2005
[2024-06-05 17:35] LABS: Alanine Aminotransferase 27 U/L (12-78); Albumin Level 4.9 g/dl (3.5-5.0); Albumin/Globulin Ratio 1.8 (1.1-1.8); Alkaline Phosphatase 82 U/L (38-126); Anion Gap 14.3 mEq/L (5-15); Aspartate Amino Transferase 31 U/L (14-36); Bilirubin,Total 0.6 mg/dl (0.2-1.3); Blood Urea Nitrogen 5 mg/dl (7-17); Calcium 10.5 mg/dl (8.4-10.2); Carbon Dioxide 27 mmol/L (22.0-30.0); Chloride 103 mmol/L (98-107); Estimated Glomerular Filt Rate 137 ml/min (>60); GFR (African American) 166 ML/MIN (>60); Globulin 2.7 g/dL (1.3-3.2); Glucose 91 mg/dl (74-100); Potassium 4.3 mmoL/L (3.5-5.1); Sodium 140 mmol/L (136-145); Total Protein,Serum 7.6 g/dl (6.3-8.2)
[2024-06-05 17:51] LABS: Free T4 (Free Thyroxine) 1.04 ng/dl (0.78-2.19)
[2024-06-05 18:06] LABS: Thyroid Stimulating Hormone 1.19 uIU/mL (0.465-4.68)
== END 2024-06-05 23:59 | disposition home or self-care (01) ==
LOC: LAB 16:36
PROVIDERS: PCP Family Medicine; Visit Provider Nurse Practitioner Family
DX: E53.8 Deficiency of other specified B group vitamins (principal); L30.9 Dermatitis, unspecified; L65.9 Nonscarring hair loss, unspecified; M79.18 Myalgia, other site; R53.83 Other fatigue; R10.9 Unspecified abdominal pain
CPT/HCPCS: 36415; 80053; 84439; 84443

== ENCOUNTER 2024-06-06 16:38 | Outpatient (CLI) | payer BC, SELFPAY ==
[2024-06-06 16:41] LABS: Campylobacter Not Detected (NotDetected); Clostridium Difficile A/B, PCR Not Detected (NotDetected); Plesimonas Shigalloides, PCR Not Detected (NotDetected)
[2024-06-06 16:42] LABS: Adenovirus F 40/41, stool Not Detected (NotDetected); Astrovirus Not Detected (NotDetected); Cryptosporidium Not Detected (NotDetected); Cyclospora Cayetanesis Not Detected (NotDetected); Entamoeba histolytica Not Detected (NotDetected); Enteroaggregative E coli Not Detected (NotDetected); Enteropathogenic E coli Not Detected (NotDetected); Enterotoxigenic E coli Not Detected (NotDetected); Giardia lamblia Not Detected (NotDetected); Norovirus Not Detected (NotDetected); Rotavirus A Not Detected (NotDetected); Salmonella, PCR Not Detected (NotDetected); Sapovirus Not Detected (NotDetected); Shiga-like toxin E coli Not Detected (NotDetected); Shigella Enterovasive E coli Not Detected (NotDetected); Vibrio Cholerae Not Detected (NotDetected); Vibrio, PCR Not Detected (NotDetected); Yersinia Entercolitica, PCR Not Detected (NotDetected)
== END 2024-06-06 23:59 | disposition home or self-care (01) ==
LOC: LAB.DROPOF 16:39
PROVIDERS: PCP Family Medicine; Visit Provider Nurse Practitioner Family
DX: R19.7 Diarrhea, unspecified (principal)
CPT/HCPCS: 87507

== ENCOUNTER 2024-07-31 16:22 | Outpatient (CLI) | payer BC, SELFPAY ==
[2024-08-02 13:09] LABS: Endomysial IgA Antibody Positive (Negative)
[2024-08-02 16:24] LABS: Deamidated Gliadin Abs, IgA >150 units (0-19); Deamidated Gliadin Abs, IgG >150 units (0-19); Tissue Transglutaminase IgA Ab >100 U/mL (0-3)
[2024-08-03 15:09] LABS: Tissue Transglutaminase IgG Ab 55 U/mL (0-5)
[2024-08-04 08:21] LABS: Reticulin IgA Antibody 1:40 titer (Neg:<1:2.5)
[2024-08-04 14:13] LABS: Saccharomyces cerevisiae, IgA 46.4 Units (0.0-24.9); Saccharomyces cerevisiae, IgG 61.3 Units (0.0-24.9)
== END 2024-07-31 23:59 | disposition home or self-care (01) ==
LOC: LAB 16:22
PROVIDERS: PCP Family Medicine; Visit Provider Internal Medicine Gastroenterology
DX: R19.7 Diarrhea, unspecified (principal); R14.0 Abdominal distension (gaseous); R10.31 Right lower quadrant pain; R10.32 Left lower quadrant pain
CPT/HCPCS: 83516; 86255; 86256; 86671

== ENCOUNTER 2024-08-03 09:28 | Outpatient (CLI) | payer BC, SELFPAY ==
[2024-08-06 03:37] LABS: Pancreatic Elastase, Fecal >800 (>200)
[2024-08-06 12:22] LABS: Calprotectin, Fecal 6 ug/g (0-120)
== END 2024-08-03 23:59 | disposition home or self-care (01) ==
LOC: LAB.DROPOF 09:29
PROVIDERS: PCP Family Medicine; Visit Provider Internal Medicine Gastroenterology
DX: R19.7 Diarrhea, unspecified (principal); R14.0 Abdominal distension (gaseous); R10.31 Right lower quadrant pain; R10.32 Left lower quadrant pain
CPT/HCPCS: 82656; 83993

== ENCOUNTER 2024-09-10 06:11 | Day surgery (SDC) | payer BC, SELFPAY ==
[2024-09-07 10:36] VITALS: BMI 24.0
[2024-09-10 06:57] VITALS: BP 121/80; PULSE 74; RESP 18; TEMP 36.3; O2SAT 100
--- NOTE | 2024-09-10 06:57 | EXP.HP ---
History of Present Illness *Admission Date: 09/10/24 *Reason for visit:: Celiac disease/diarrhea *History of present illness: Mrs. Galindo is a 39-year-old female who is here for diagnostic EGD and colonoscopy. The patient recently has been in the office with diarrhea, bloating, gassiness, bowel irregularity and lower abdominal discomfort. She was given Xifaxan and, probiotic and psyllium Konsyl. Stool PCR panel, fecal calprotectin and fecal elastase were normal (fecal calprotectin ? 6 mcg/g and fecal elastase greater than 800 mcg/g). Her celiac serologies were strongly indicative of celiac disease (tissue transglutaminase IgA greater than 100, both deamidated gliadin IgG and IgA greater than 150). She returned from a 9-day trip in the [facility] in late May and developed diarrhea. After 3 to 4 weeks, she was seen by her PCP. Stool testing was done initially and was negative PCR. The patient is on Otezla for her psoriasis. Initially when she took Otezla, she had some initial diarrhea but has been on this for 18 months. She did feel like this might be related to the Otezla and stopped this for a few days and then developed constipation where she did not have a bowel movement for 8 days. The patient does report bowel urgency, frequency, bloating and gassiness. She also has some lower abdominal discomfort. Stress can exacerbate her symptoms. She does state that her father has Crohn's disease and her mother had lupus. The patient does have a positive DAVID. She has not previously been tested for celiac disease and has had no prior colonoscopy. In 2022 she did have some microcytic anemia but her labs in September 2023 were normal. [facility] Disclaimer: The information contained in this section may have been updated after the patient was seen, as this information can be updated by other users. Medical History (Updated 09/10/24 @ 07:02 by Herrera Bourgeois II, MD) Lupus Psoriasis Eczema Crohn's disease Irritable bowel syndrome (IBS) History of anemia Surgical History H/O tubal ligation History of endometrial ablation History of section History of breast biopsy Family History Other Family history of Crohn's disease Family history of lupus Social History (Updated 09/07/24 @ 10:31 by Ju Ennis RN) Smoking Status: Former smoker tobacco type: cigarettes packs per day: 1 and e-cigarettes second hand exposure: Yes alcohol intake: current alcohol intake frequency: holidays/special occasions only substance use type: denies use current occupational status: employed Travel in the last 8 weeks: None household members: family current occupational exposures/hazards: No caffeine: Yes Other Medical History Have you received the Flu Vaccine for this season: Yes Have you received the Pneumonia Vaccine: No Review of Systems Review of Systems Review of systems (narrative): Negative *Cardiovascular Comments: Negative *Gastrointestinal Comments: Negative *Genitourinary Comments: Negative *Musculoskeletal Comments: Negative *Neurologic Comments: Negative Meds Home Medications and Allergies Home Medications ?Medication ?Instructions ?Recorded ?Confirmed ?Type calcium pantothenate 500 mg tablet 500 mg PO DAILY 12/23/22 09/10/24 History cholecalciferol (vitamin D3) 25 25 mcg PO DAILY 12/23/22 09/10/24 History mcg (1,000 unit) capsule histidine HCl(L-histid)(bulk) 1 ea miscellaneous DAILY 08/17/23 09/10/24 History loratadine 10 mg tablet (Allergy 10 mg PO DAILY 08/17/23 09/10/24 History Relief (loratadine)) mecobalamin (vitamin B12) 1,000 1,000 mcg sublingual DAILY 08/17/23 09/10/24 History mcg disintegrating tablet,sublingual apremilast 30 mg tablet (Otezla) 30 mg PO BID 07/31/24 09/10/24 History mycophenolate mofetil 250 mg 1,000 mg PO .2 tabs QD 07/31/24 09/10/24 History capsule (CellCept) sodium,potassium,mag sulfates 17.5 See Rx Instructions PO .COMPLEX 08/27/24 Rx gram-3.13 gram-1.6 gram oral soln #354 mL (Suprep Bowel Prep Kit) New Prescriptions to Start Prescriptions: Allergies Allergy/AdvReac Type Severity Reaction Status Date / Time No Known Allergies Allergy Verified 09/10/24 06:55 Exam Data for Last 24 hours I & O for Last 24 hours: Intake & Output 09/07/24 09/08/24 09/09/2403/25 23:59 23:59 23:59 23:59 Weight 158 lb *Routine HEENT Exam Head: Present normocephalic Eye: Present EOMI and PERRL ENT: Present mucous membranes moist *Routine Neck Exam Neck: Present supple *Routine Respiratory Exam Respiratory: Present CTA bilaterally *Routine Cardiovascular Exam Cardiovascular: Present RRR *Routine Abdominal Exam Abdominal: Present soft and normoactive bowel sounds; Absent tenderness *Routine Rectal Exam Rectal:: deferred *Routine Genitalia Exam Genitalia:: deferred *Routine Extremities Exam Extremities: Absent cyanosis, clubbing or edema *Routine Skin Exam Skin: Present warm; Absent rash *Routine Neurological Exam Neurological: Present alert and oriented X3 Assessment and Plan *Assessment and plan (1) Celiac disease: Status: Acute Category: Medical Code(s): K90.0 - Celiac disease (2) Irritable bowel syndrome with diarrhea: Status: Acute Category: Medical Code(s): K58.0 - Irritable bowel syndrome with diarrhea (3) Bilateral lower abdominal discomfort: Status: Acute Category: Medical Code(s): R10.31 - Right lower quadrant pain; R10.32 - Left lower quadrant pain (4) Bloating: Status: Acute Category: Medical Code(s): R14.0 - Abdominal distension (gaseous) (5) Diarrhea: Status: Acute Category: Medical Code(s): R19.7 - Diarrhea, unspecified Plan A/P: 1. Longstanding diarrhea with bloating, diarrhea and bilateral lower abdominal discomfort with positive celiac serologies is the preprocedural diagnosis. The patient will be anesthetized/sedated using MAC sedation. The patient has been seen and examined. Cardiac and lung assessment prior to the examination is stable. Proceed with planned EGD and colonoscopy
[2024-09-10] MEDS: LACTATED RINGERS 1000ML 1,000 ML 50 ML IV (07:04)
[2024-09-10 07:19] LABS: Urine Pregnancy, HCG Qual. Negative (Negative)
--- NOTE | 2024-09-10 07:22 | HMH.PROCNOTE ---
[facility] Procedure Note Date: 09/10/24 Time: 07:38 Procedure Note:: Upper Endoscopy Procedure Report: Esophagogastroduodenoscopy with cold biopsies Endoscopost: Herrera Bourgeois II, MD Referring Physician: Jasbir Garrison MD Date of Procedure: September 10, 2024 Equipment: Olympus GIF 190 standard upper endoscope Sedation: MAC sedation Indications: Mrs. Galindo is a 39-year-old female who is here for diagnostic EGD and colonoscopy. The patient recently has been in the office with diarrhea, bloating, gassiness, bowel irregularity and lower abdominal discomfort. She was given Xifaxan and, probiotic and psyllium Konsyl. Stool PCR panel, fecal calprotectin and fecal elastase were normal (fecal calprotectin ? 6 mcg/g and fecal elastase greater than 800 mcg/g). Her celiac serologies were strongly indicative of celiac disease (tissue transglutaminase IgA greater than 100, both deamidated gliadin IgG and IgA greater than 150). She returned from a 9-day trip in the [facility] in late May and developed diarrhea. After 3 to 4 weeks, she was seen by her PCP. Stool testing was done initially and was negative PCR. The patient is on Otezla for her psoriasis. Initially when she took Otezla, she had some initial diarrhea but has been on this for 18 months. She did feel like this might be related to the Otezla and stopped this for a few days and then developed constipation where she did not have a bowel movement for 8 days. The patient does report bowel urgency, frequency, bloating and gassiness. She also has some lower abdominal discomfort. Stress can exacerbate her symptoms. She does state that her father has Crohn's disease and her mother had lupus. The patient does have a positive DAVID. She had not previously been tested for celiac disease and has had no prior colonoscopy. In 2022 she did have some microcytic anemia but her labs in September 2023 were normal. The patient is markedly better with completion of Xifaxan, gluten-free and continuing the psyllium Konsyl and probiotic align. Procedure: Prior to the procedure, a history and physical exam was performed, and patient's medications and allergies were reviewed. The risks, benefits and alternatives of the sedation and procedure were discussed with the patient. All questions were answered and informed consent was obtained. The patient was brought to the procedure room. Patient identification and proposed procedure were verified by the physician and the nurse. The patient was placed in a left lateral decubitus position and the scope was passed under direct vision. Throughout the procedure, the patient's blood pressure, pulse, and oxygen saturations were monitored continuously. The upper GI endoscopy was accomplished without difficulty. The patient tolerated the procedure well. Findings: The scope was passed directly into the upper esophagus and advanced to the third portion of the duodenum. The post bulbar duodenum and duodenal bulb had some mild mucosal nodularity with scalloping of the conniventes. The findings were most consistent with celiac and multiple biopsies were taken from the first portion of duodenum and duodenal bulb. The scope was withdrawn through a normal pylorus into the stomach. There was very mild linear reactive gastropathy of the antrum. The body and fundus of the stomach were normal. Upon retroflexion there was no hiatal hernia. Biopsies were taken from the antrum. The scope was then withdrawn into the esophagus. There was no evidence of reflux esophagitis or Turcios's. The remainder of the esophageal mucosa was normal. Impression: 1. Scalloping and mucosal micronodularity of proximal duodenum?most consistent with active celiac disease Plan: I will follow-up the biopsies. The patient is already beginning gluten-free diet. She is clinically better. I will proceed with diagnostic colonoscopy.
[2024-09-10 07:26] VITALS: O2SAT 100
--- NOTE | 2024-09-10 07:39 | HMH.PROCNOTE ---
[facility] Procedure Note Date: 09/10/24 Time: 07:53 Procedure Note:: Colonoscopy Procedure Report: Colonoscopy with cold snare polypectomy Endoscopist: Herrera Bourgeois II, MD Referring physician: Jasbir Garrison MD Date of Procedure: September 10, 2024 Equipment: Olympus 190 variable stiffness pediatric colonoscope Sedation: MAC sedation Indication: Mrs. Galindo is a 39-year-old female who is here for diagnostic EGD and colonoscopy. The patient recently has been in the office with diarrhea, bloating, gassiness, bowel irregularity and lower abdominal discomfort. She was given Xifaxan and, probiotic and psyllium Konsyl. Stool PCR panel, fecal calprotectin and fecal elastase were normal (fecal calprotectin ? 6 mcg/g and fecal elastase greater than 800 mcg/g). Her celiac serologies were strongly indicative of celiac disease (tissue transglutaminase IgA greater than 100, both deamidated gliadin IgG and IgA greater than 150). She returned from a 9-day trip in the [facility] in late May and developed diarrhea. After 3 to 4 weeks, she was seen by her PCP. Stool testing was done initially and was negative PCR. The patient is on Otezla for her psoriasis. Initially when she took Otezla, she had some initial diarrhea but has been on this for 18 months. She did feel like this might be related to the Otezla and stopped this for a few days and then developed constipation where she did not have a bowel movement for 8 days. The patient does report bowel urgency, frequency, bloating and gassiness. She also has some lower abdominal discomfort. Stress can exacerbate her symptoms. She does state that her father has Crohn's disease and her mother had lupus. The patient does have a positive DAVID. She had not previously been tested for celiac disease and has had no prior colonoscopy. In 2022 she did have some microcytic anemia but her labs in September 2023 were normal. The patient is markedly better with completion of Xifaxan, gluten-free and continuing the psyllium Konsyl and probiotic align. Procedure: Prior to the procedure, a history and physical exam was performed, and patient's medications and allergies were reviewed. The risks, benefits and alternatives of the sedation and procedure were discussed with the patient. All questions were answered and informed consent was obtained. The patient was brought to the procedure room. Patient identification and proposed procedure were verified by the physician and the nurse. The patient was placed in a left lateral decubitus position and the scope was passed under direct vision. Throughout the procedure, the patient's blood pressure, pulse, and oxygen saturations were monitored continuously. The colonoscopy was accomplished without difficulty. The patient tolerated the procedure well. Findings: On digital rectal examination there was normal rectal tone. There were no external hemorrhoids. The colonoscope was introduced through the anal canal to the rectum and advanced to the cecum. The ileocecal valve and appendiceal orifice were identified. The scope was advanced a short distance into the ileum which appeared grossly normal. The scope was then withdrawn into the colon. The cecum, ascending, transverse, descending and sigmoid colon were grossly normal. There was a single 5 mm polyp in the rectosigmoid removed via cold snare polypectomy. The rectum was normal. There were no other mucosal abnormalities identified. Upon retroflexion within the rectum there were grade 1-2 internal hemorrhoids. The preparation was excellent throughout with [place] Preparation Score of 9. The cecal time was 12 minutes. Impression: 1. Rectosigmoid polyp (5 mm) 2. Grade 1-2 internal hemorrhoids Plan: I will follow-up the polyp histology and recommend repeat surveillance colonoscopy again in 7 to 10 years based upon the pathology. I would continue psyllium Konsyl on a maintenance basis.
[2024-09-10 07:57] VITALS: BP 88/41; PULSE 80; RESP 16; TEMP 36.2; O2SAT 99
[2024-09-10 08:07] VITALS: BP 111/54; PULSE 82; RESP 16; O2SAT 100
[2024-09-10 08:17] VITALS: BP 133/73; PULSE 77; RESP 16; O2SAT 100
--- NOTE | 2024-09-10 08:25 | P.PNANES_ITS ---
[facility] Disclaimer: The information contained in this section may have been updated after the patient was seen, as this information can be updated by other users. Medical History Lupus Psoriasis Eczema Crohn's disease Irritable bowel syndrome (IBS) History of anemia Surgical History H/O tubal ligation History of endometrial ablation History of section History of breast biopsy Family History Other Family history of Crohn's disease Family history of lupus Social History (Updated 09/10/24 @ 07:03 by Remedios Ellsworth RN) Smoking Status: Former smoker tobacco type: cigarettes packs per day: 1 and e- cigarettes second hand exposure: Yes alcohol intake: current alcohol intake frequency: holidays/special occasions only substance use type: denies use current occupational status: employed Travel in the last 8 weeks: None household members: family current occupational exposures/hazards: No caffeine: Yes Have you lived/traveled outside US in past 30 days?: No Contact w/someone who lives/traveled outside US past 30 days?: No Exposure to someone with infectious disease in past 14 days?: No Do you have a fever (greater than 100.4 F or 38 C)?: No Have you tested positive for COVID-19: No Exposed to someone with COVID-19 in past 14 days?: No Do you have a sore throat?: No Do you have a cough?: No Do you have any weakness?: No Are you experiencing any nausea/vomitting?: No Do you have any diarrhea?: No Are you experiencing any unusual bleeding?: No Do you have any muscle aches/pain?: No Do you have any abdominal pain?: No Are you experiencing loss of taste or smell?: No [facility] Anesthesia Checklist Patient Identification Patient Identification: Verbal (Name & ) Structural Data Admitted From: Home Planned Operative Procedure/s: egd,colonoscopy Consent for Planned Operative Procedure(s) Verified: Yes NPO Status Verified Time NPO: 00:00 Additional verifications Anesthesia Reactions: No Hx Blood Transfusions: No Blood Transfusion Reaction: No Airway Assessment Mallampati Score:: Class II C-Spine Mobility Assessed: Yes TMJ Mobility Assessed: Yes Dentition: Good Dentition Neurological Assessment Level of Consciousness: Awake, Alert and Appropriate Anesthesia Plan Anesthesia Risk discussed: Yes Anesthesia Plan: Verified ASA Class: II Anesthesia Type: MAC
[2024-09-10 08:27] VITALS: BP 123/71; PULSE 76; RESP 16; O2SAT 99
== END 2024-09-10 08:37 | disposition home or self-care (01) ==
PROVIDERS: PCP Family Medicine; Visit Provider Internal Medicine Gastroenterology
PROC: 0DJ08ZZ Inspection of Upper Intestinal Tract, Via Natural or Artificial Opening Endoscopic (ICD-10-PCS; CPT 45378; principal; 2024-09-10 07:30)
DX: K31.9 Disease of stomach and duodenum, unspecified (principal); K63.5 Polyp of colon; K64.8 Other hemorrhoids; K90.0 Celiac disease; K58.0 Irritable bowel syndrome with diarrhea; R10.31 Right lower quadrant pain; R10.32 Left lower quadrant pain; R14.0 Abdominal distension (gaseous); R19.7 Diarrhea, unspecified
CPT/HCPCS: 45385; 43239; 81025; J7120

== ENCOUNTER 2024-11-09 11:02 | Outpatient (CLI) | payer BC, SELFPAY ==
[2024-11-09 11:43] LABS: Basophils # 0.1 K/mm3 (0-0.2); Basophils % 2.2 % (0.1-2.0); Eosinophils # 0.2 Kmm3 (0.0-0.4); Eosinophils % 4.1 % (0.1-12.0); Hematocrit 43.7 % (37.0-47.0); Hemoglobin 14.3 g/dL (12.2-16.2); Lymphocytes % 25.1 % (10-50); Mean Corpuscular HGB Conc 32.7 g/dL (31.8-35.4); Mean Corpuscular Hemoglobin 29.4 pg (27.0-31.2); Mean Corpuscular Volume 89.9 fl (81-99); Mean Platelet Volume 9.8 fl (7.4-10.4); Monocytes # 0.4 K/mm3 (0.1-1.0); Monocytes % 10.5 % (1.7-9.3); Neutrophils # 2.4 K/mm3 (1.8-7.8); Neutrophils % 58.1 % (37.0-80.0); Nucleated Red Blood Cells # 0 10^3/uL; Nucleated Red Blood Cells % 0 %; Platelet Count 302 K/mm3 (142-424); Red Blood Count 4.86 M/mm3 (4.20-5.40); Red Cell Distribution Width 13.2 % (11.5-17.5); Red Cell Distribution Width-SD 43.8 fL; White Blood Count 4.1 K/mm3 (4.8-10.8)
[2024-11-09 12:03] LABS: Alanine Aminotransferase 26 U/L (12-78); Albumin Level 4.2 g/dl (3.5-5.0); Albumin/Globulin Ratio 1.4 (1.1-1.8); Alkaline Phosphatase 58 U/L (38-126); Anion Gap 7.1 mEq/L (5-15); Aspartate Amino Transferase 30 U/L (14-36); Bilirubin,Total 0.4 mg/dl (0.2-1.3); Blood Urea Nitrogen 15 mg/dl (7-17); Calcium 9.7 mg/dl (8.4-10.2); Carbon Dioxide 28 mmol/L (22.0-30.0); Chloride 107 mmol/L (98-107); Chol/HDL Ratio 2.5 (1-3.5); Cholesterol 159 mg/dl (140-200); Estimated Glomerular Filt Rate 111 ml/min (>60); GFR (African American) 135 ML/MIN (>60); Globulin 3.1 g/dL (1.3-3.2); Glucose 83 mg/dl (74-100); HDL Cholesterol 63 mg/dl (40-60); Potassium 5.1 mmoL/L (3.5-5.1); Sodium 137 mmol/L (136-145); Total Protein,Serum 7.3 g/dl (6.3-8.2); Triglycerides 62 mg/dl (30-150); VLDL Cholesterol 12 mg/dL (0-40)
[2024-11-09 12:14] LABS: Direct LDL Cholesterol 72.71 mg/dL (100-129)
== END 2024-11-09 23:59 | disposition home or self-care (01) ==
LOC: LAB 11:02
PROVIDERS: PCP Family Medicine; Visit Provider Dermatology
DX: L40.0 Psoriasis vulgaris (principal); L40.50 Arthropathic psoriasis, unspecified; Z79.69 Long term (current) use of other immunomodulators and immunosuppressants
CPT/HCPCS: 36415; 80053; 80061; 85025

== ENCOUNTER 2025-01-08 07:28 | Outpatient (CLI) | payer BC, SELFPAY ==
--- OUTSIDE RECORDS SUMMARY | 2023-10-31 07:45 | XMS_ITS ---
Author Organization Rich Address 1210 [facility] [address] [place] [phone] Care Team Providers Care Conventional Underwriter Name Role Phone Mario Daniels Primary Care Provider Chiquis Starr Unavailable [phone] Jasbir Garrison Unavailable [phone] Allergies Allergen (clinical drug ingredient) Drug/Non Drug [...] Location Date Provider Diagnosis [place] [address] [place] [facility] [address] [place] [phone] 10/31/2023 Jasbir Garrison Rash R21 Assessments Encounter Date Diagnosis (ICD Code) Assessment Notes Treatment Notes Treatment Clinical Notes Section Notes 10/31/2023 Rash (ICD-10 - R21) Patient to see her certified health education specialist in 2 days Plan Of Treatment Medication [...] * Kristin DONOHUE ADOB: (40 yo F)Acc No.[id number]:10/31/2023 Progress Notes Patient: Kristin GUAMAN Provider: Herman Garrison M.D. :1985 A ge:38 Y S ex:Female Date:10/31/2023 Address:[address] [place] [address] Pcp:Mario Daniels Subjective: * Chief Complaints: * [...] Hospitalization/Major Diagno stic Procedure: C hild - [facility] 10/25/2003, Child - [facility] 12/03/2005, Child - [facility] 09/29/2012. * Family History: F ather: [...] * Images: Billing Information: * Visit Code: 63366 Office Visit, Est Pt., Level 3. * Procedure Codes: * Electronic signature of Hedy Garrison MD on 01/08/2025 at 07:32 AM EDT Sign off status: Pending * Provider: Herman Garrison M.D. Date: 0 10/31/2023 Generated for Annette gonsalez/Jessica/Butchitting on: 0 01/08/2025 07:32 AM EDT History and Physical Notes * [...]
--- OUTSIDE RECORDS SUMMARY | 2024-06-04 11:30 | XMS_ITS ---
Author Organization [facility]10 [facility] [address] [phone] Care Team Providers Care Superintendent Operating Name Role Phone Mario Daniels Primary Care Provider [phone] Chiquis Starr Unavailable [phone] Allergies Allergen (clinical drug ingredient) Drug/Non Drug [...] AM Interpretation: Performing Lab: Notes/Report: Diarrhea Panel ([facility]) Reviewed date:06/11/2024 09:14:55 AM Interpretation: Performing Lab: [...] 06/04/2024 Encounters Encounter Location Date Provider Diagnosis [facility] [address] [place], [place] [phone] 06/04/2024 Chiquis Starr Abdominal pain R10.9 ; [...] * Kristin DONOHUE ADOB: (40 yo F)Acc No.[id number]:06/04/2024 Progress Notes Patient: Kristin GUAMAN Provider: ANYI Chapman :1985 A ge:39 Y S ex:Female Date:06/04/2024 Address:[address] [place] [address] Pcp:Mario Daniels Subjective: * Chief Complaints: * [...] PCP; decrease in appetitie. H PI: reviewed woodworking machine feeder report from [facility] and last Plating Technician report from [facility]; neither mention diarrhea as an issue. * [...] Hospitalization/Major Diagno stic Procedure: C hild - [facility] 10/25/2003, Child - [facility] 12/03/2005, Child - [facility] 09/29/2012. * Family History: F ather: alive, [...] * Procedure Codes: 9 4760 [place], [address] CAPILLARY BLOOD DRAW, 61304 CBC WITH AUTO DIFF * Follow Up: w ill notify of test results,and prn * Images: Billing Information: * Visit Code: 69568 Office Visit, Est Pt., Level 4. * Procedure Codes: [address] [place]. [address] CAPILLARY BLOOD DRAW. 40502 CBC WITH AUTO DIFF. * Electronic signature of Kaley Starr APRN on 01/08/2025 at 07:31 AM EDT Sign off status: Pending * Provider: ANYI Chapman Date: 08/04/2023 Generated for Annette gonsalez/Jessica/eTransmitting on: 0 01/08/2025 07:31 AM EDT History and Physical Notes * HPI (History of Present Illness) Category Sub-Category Detail Notes Category Not es Gastroenterology Fever 3-4 times/d ay stool with mucous ; diarrhea started in04/2024; saw hoemr chackoogist 2 weeks ago and told to see [...] Belching HPI reviewed allerg ist report from [facility] and last Plating Technician report from [facility]; neither mention diarrhea as an issue Examination [...]
--- OUTSIDE RECORDS SUMMARY | 2024-12-04 06:45 | XMS_ITS ---
Author Organization [facility] Address [address] [place] [address] Care Team Providers Care Dynamometer Tester Name Role Phone Meli Jasbir Primary Care Provider Margaret Amor [phone] Allergies No Known Allergies REASON FOR VISIT scraped left heel with anna marie nail last night Medications Medication SIG (Take, Route, Frequency, Duration) Notes Start Date End Date Status Rinvoq 15 MG 1 tablet Orally Once a day Active Immunizations Vaccine Route Administration Date Status Comme nts Td Vaccine, TENIVAC No Preserv, >/= 7, IM IM Intramuscular 12/04/2024 Administered Social History Tobacco Use: Social History Observation Description Date Details (start date - stop date) Never Smoker NA - NA Tobacco Control (Standard) Question Answer Notes Tobacco use: Nonsmoker Encounters Encounter Location Date Provider Diagnosis [address] [address] 12/04/2024 Margaret Palomo Abrasion foot/toe S90.819A Assessments Encounter Date Diagnosis (ICD Code) Assessment Notes Treatment Notes Treatment Clinical Notes Section Notes 12/04/2024 Abrasion foot/toe (ICD-10 - S90.819A) keep clean and dry Visit summary given to and discussed with patient and/or parent who verbalizes understanding and agreement with plan of care. Plan Of Treatment Treatment Notes Assessment Notes Abrasion foot/toe keep clean and dry Visit summary given to and discussed with patient and/or parent who verbalizes understanding and agreement with plan of care. Next Appt Details Follow Up: prn, Reason: Progress Notes * Kristin DONOHUEDOB:[birth year] (39 yo F)Acc No.[id number]:12/04/2024 Progress Note Patient: Davi Kristin VIRAMONTES Provider: Lee kori Palomo APRN :1985 A ge:39 Y S ex:Female Date:12/04/2024 External Visit ID:[id number] [facility] [id number] Pcp:Jasbir Garrison Subjective: * Chief Complaints: * 1 . Scraped left heel with anna marie nail last night. * HPI: D ermatological: 39 year old female presents with c/o wound l ocation f oot, l ocation l eft, c aused by _ ____ anna marie nail at home, d ate of injury 0 12/03/2024, f oreign body present N o, e xcessive bleeding N o, n umbness N o, s igns and symptoms of infection N o, d ate of last Tetanus vaccine o lyle 20 years. * ROS: C ONSTITUTIONAL: no c [place]. n o f ever. D ERMATOLOGY: no s igns of infection. s crape on left foot/posterior ankle. * Medical History: L upus, Eczema, Psoriasis, Celiac. * Surgical History: t ubal ligation , . * Hospitalization/Major Diagno stic Procedure: s ee above . * Social History: T obacco Use: T obacco Control (Standard) T obacco use: N onsmoker. * Medications: T aking Rinvoq 15 MG Tablet Extended Release 24 Hour 1 tablet Orally Once a day , Medication List reviewed and reconciled with the patient * Allergies: N .K.D.A. Objective: * Vitals: L NMP: ablation. * Examination: F ocused Exam: GENERAL: a lert and oriented x 4, no acute distress, dress appropriate for the environment & temp, well-groomed, appears well. DERMATOLOGICAL: s mall abrasion left posterior heel; no bleeding or redness. PSYCH: f riendly attitude. Assessment: * Assessment: 1. A brasion foot/toe - S90.819A (Primary) S pecify :left heel Plan: * Treatment: * Immunizations: Td Vaccine, TENIVAC No Preserv, >/= 7, IM : 0.5 mL (Dose No:1) (Route: Intramuscular) given by Margaret Palomo on Right Deltoid (Abrasion foot/toe) * Procedure Codes: 9 0714 TD VACCINE NO PRSRV (TENIVAC), 05328 ADMIN OF VACCINE 1st, CAB DRIVER Sending to Liner Man for Code Review * Follow Up: p rn * Billing Information: * Visit Code: * Procedure Codes: 44366 TD VACCINE NO PRSRV (TENIVAC). 16697 ADMIN OF VACCINE 1st. CAB DRIVER Sending to Liner Man for Code Review. Care Plan Details* Images * [id number] * Sign off status: Completed true * Provider: Lee Palomo APRN Date: 0 12/04/2024 Generated for Annette gonsalez/Jessica/Beck on: 0 01/08/2025 06:32 AM CDT History and Physical Notes * HPI (History of Present Illness) Category Sub-Category Detail Notes Category Not es Dermatological wound location: foot location: left caused by: anna marie nail at home date of injury: 12/03/2024 foreign body present: No excessive bleeding: No numbness: No signs and symptoms of infection: No date of last Tetanus vaccine: over 20 ye ars Examination Category Sub-Category Detail Notes Category Not es Focused Exam GENERAL: alert and orient ed x 4, no acute distress, dress appropriate for the environment & temp, well-groomed, appears well DERMATOLOGICAL: small abrasion left posterior heel; no bleeding or redness PSYCH: friendly attitude
--- OUTSIDE RECORDS SUMMARY | 2025-01-08 07:31 | XMS_ITS | Continuity of Care Document ---
Author Organization [facility] RABIA Reyes JULIAN Address [address] [place] [address] Care Team Providers Care Rug Sizer Name Role Phone SHAHEEN GARCIA Surveillance Director SIVAKUMAR GALICIA Primary Care Provider Assessment No assessment recorded. Plan of Treatment Reminders Order Date Submit Date Provider Last Modified By Organization Details Last Modified Time Details Appointments PROVIDER APPROVED [facility] 2024 04:10P Davi TRAMMELL MD Not available Not available Not available Lab CBC w/ auto diff 2024 025 [id number] 3 [facility], [address] [place], [address], 01/07/2025 11:50:00 AST/SGOT (aspartat e aminotran sferase), serum or plasma 2024 025 [id number] 3 [facility], [address] [place], [address], 01/07/2025 11:50:00 ALT (alanine aminotran sferase), serum or plasma 2024 025 [id number] 3 [facility], [address] [place], [address], 01/07/2025 11:50:00 Referral None recorded. Procedures None recorded. Surgeries None recorded. Imaging None recorded. Medication Orders None recorded. Patient TargetsNo targets recorded. Patient Instructions Encounter Date Encounter Id Patient Instructions Last Modified By Organization Details Last Modified Time 12/12/2024 [id number] Follow up as scheduled Not available 12/12/2024 15:19:57 Reason for Referral None Reported. Medical Equipment None Reported. Allergies No known drug allergies Medications Name Sig Start Date Stop Date Status Note LastModified by Organization Details LastModified Time Prescription - Prior Authorization Request active Not Available Not Available Not Available fluocinonide 0.05 % topical ointment twice a day to hands for up to two weeks, take one week break, repeat as needed 12/12 completed Not Available Not Available Not Available triamcinolone acetonide 0.1 % topical ointment 2x daily for up to 2 weeks, take one week break, repeat as needed 12/12 completed Not Available Not Available Not Available dexamethasone 12/12 completed Not Available Not Available Not Available CellCept 12/12 completed Not Available Not Available Not Available Claritin active Not Available Not Avai lable Not Available Otezla 30 mg tablet one po bid 12/12 completed Not Available Not Available Not Available Rinvoq 15 mg tablet,extend ed release Take 1 tablet by mouth Daily. active Not Available Not Available No t Available Vitals Date Recorded Body height Provider Name an d Address Organization Details Last Updated DateTime 12/12/2024 [facility]/12/[facility] 15:02:15 Social History Question Answer Notes LastModified by [employer] Details LastModified Time Tobacco Smoking Status Never Smoker Saba [facility] 11/02/2023 11:41:08 Sunscreen Use? Yes [email or web address] Informatio n not available 12/12/2024 Tanning Bed Use No [email or web address] Informati on not available 12/12/2024 What Was The Date Of Your Most Recent Tobacco Screening? 05/22/2024 [email or web address] Information not available 05/22/2024 Sex: Female Functional Status Question Answer Note LastModified by [employer] Details LastModified Time Do you or have you ever used any other forms of tobacco or nicotine? No [email or web address] Information not available 05/22/2024 What is your level of alcohol consumption? Occasional [email or web address] Information not available 11/02/2023 Mental Status None recorded. Family History Relationship [...] Y Meningitis N Ulcers N Heart Attack (DE) N Other Skin Condition Y Psychiatric Illness N Diabetes N Rhinitis N Rheumatic Fever N Bleeding Disorder N Tuberculosis N AIDS/HIV N Hyperlipidemia N Nasal polyps Y Asthma N Hepatitis B N Rubella N Epilepsy/Seizures N GERD/Reflux N Hypertension N Osteoporosis N Chicken Pox Y Gynecological HistoryNo gynecological history recorded. Obstetrics History GPAL:G 0 P 0 0 0 0 Past Encounters Encounter ID Performer Location Encounter Start Date Encounter Closed Date Diagnosis/Indication Diagnosis SNOMED-CT Code Diagnosis ICD10 Code Diagnosis Note [id number] SHAHEEN TRAMMELL MD [address] [address] 12/12/2024 14:48:38 12/12/2024 16:02:00 Atopic dermatitis [id number] L20.89 L40.0 L40.50 Z79.69 See 10/2022 note for full history Doing great on Rinvoq after 4 weeks. Started noticing improvemen t in 3 days. May have DH component due to new possible celiac diagnosis and reported R knee rash (flares intermitte ntly, not present today). Rash seen today is atopic dermatitis , not c/w DH. BSA: 0% (decreased from 4%) She stopped CellCept (as prescribed by ACL) 09/2024She is getting labs done routinely through [facility]ACL ruled out lupus, DAVID-Was on Otezla from 11/2023-09/09 025. No chage after stopping. She was clear while in the [place] Her last steroid taper was in November 2022 She has tried tanning bed in the past and it has helped. I had hesitated previously to do nbUVB because pt had originally said she had lupus, but pt has had numerous workups for lupus w/ +DAVID; rheum has said it is not lupus Pt reports that she now is d/w celiac disease+ endomysial IgA antibodies 1:40+ Reticulin IgA antibodyTT G IgG elevated at 55TTG IgA >100Gliadi n IgG & IgA >150 Labs very suggestive of celiac disease. Rec gluten free diet and f/u with GI. Pt has been on gluten free diet since 08/2024. She is still experienci ng rash flares of the eczema. Plan:Walter nue all free & clear detergentC ontinue CellCept as prescribed by ACLContinu e OTC Heliocare 1qamContin ue OTC calciumCon tinue vitamin D3 1000 IU dailyConti nue Claritin 10mg qamContinu e zyrtec 10mg qhsContinu e L-histidin e 1000mg 2PO BID- one case study showed 1/3 improvemen t after 8 week courseCont inue fluocinoni de 0.05% ointment to use twice a day to hands for up to two weeks, take one week break, repeat as neededCont inue Rinvoq as prescribed She stopped Otezla and Cellcept around 09/2024She is no longer seeing ACL May consider hand foot unit if not improvedWi ll plan to start ELGIN inhibitor, specifical ly Rinvoq - she stopped smoking in 2021. May consider opzelura as well. Pt will call when knee is flaring and we will get in to see her shu for bx to r/o DH Long-term current use of drug therapy [id number] Z79.899 Z32.02 L20.89 L40.0 L40.50 Rinvoqis a ELGIN inhibitor oral medication that is used to treat atopic dermatitis and rheumatoid arthritis. Warnings include, but are not limited to, serious infection, increased risk of (in those 50 and older with at least 1 heart disease risk factor), major cardiovasc ular events like DE and CVA, cancers (especiall y if a smoker), and blood clots (in those 50 and older with at least 1 heart disease risk factor). Other side effects include neutropeni a, anemia, hyperlipid emia, elevated liver enzymes, potential defects (don't become while on this medication ).To be on this medication , you can't have a history of heart attack, stroke, cancer, or be a smoker. Pt denies all of these. Patient did stop smoking in 2021 LABS: Baseline:C BC with diff, CMP, QuantiFERO N Gold, Acute Hepatitis Panel, HIV, Lipid Panel, HCG (if female).Or dered 09/2024 and pt had drawn at [facility]. We did not receive results; labs shown on pts phone today (photos in today's chart). Received some labs/not all. Hepatitis panel - negQTB-Gol d - negHIV1/2 - negCMP, Lipid panel, and CBC w/ Diff. WNL 11/09/24 4 weeks:CBC with diff, LFTsOrdere d 12/12/2024 12 weeks:CBC with diff, LFTs, and lipid panel. Then every 3-4 months thereafter :CBC with diff, LFTs, and lipid panel Yearly QuantiFERO N Gold 2 sample bottles of Rinvoq given 10/28/24 to last 28 days. Pt was approved for Rinvoq and has received Rx.Will Refill Rinvoq 15mg qd disp 30 1R (pending labs) Health Concerns Section Related Observation LastModified by Organization Detai ls LastModified Time None Recorded Concern Status LastModified by Organization Details LastModified Time None Recorded Payers Encounter Date Sequence Insurance Name Policy Number Policy Parsons Covered Member ID Parsons Member ID Guarantor Name 12/12/2024 1 [employer] [id number] Kristin Galindo [id number] Kristin Galindo Notes Date Note Type Note Provider Name and Address Organization Details Recorded Time 12/12/2024 text/html Patient is here for Atopic Dermatitis - location: hands, knees, back, stomach- treatments tried in past: Cellcept, heliocare, calcium, vitamin d- currently using: dexamethasone, fluocinonide oint, L histidine, Zyrtec, Claritin, TAC oint, Rinvoq- hot, tender joints, stiffness in joints lasting longer than an hour, or pain in the Achilles tendon? No- reports: amazing results with rinvoq, barely any flare ups/dry skin/ itching since starting medication. Pt is very happy with treatment SHAHEEN TRAMMELL MD [address] [place], [address], [facility] 12/17/2024 20:36:51 OBGyn Episode No OBEpisode recorded.
--- OUTSIDE RECORDS SUMMARY | 2025-01-08 07:32 | XMS_ITS | Data Portability ---
Author Organization [facility] FILIPE Goncalves [place] CLOSED Address [address] [place] [address] Care Team Providers Care Supervisor Nutritional Yeast Name Role Phone SHAHEEN GARCIA Executive Asst SIVAKUMAR GALICIA Primary Care Provider Assessment No assessment recorded. Plan of Treatment Reminders Order Date Submit Date Provider Last Modified By Organization Details Last Modified Time Details Appointments PROVIDER APPROVED DAK 2024 04:10P Davi RIVERA MD Not available Not available Not available Lab CBC w/ auto diff 2024 025 [id number] 3 [facility], [address] [place], [address], 01/07/2025 11:50:00 AST/SGOT (aspartat e aminotran sferase), serum or plasma 2024 025 [email or web address] 3 [facility], [address], [place], [address], 01/07/2025 11:50:00 ALT (alanine aminotran sferase), serum or plasma 2024 025 [id number] 3 [facility], [address], [place], [address], 01/07/2025 11:50:00 test, urine 2024 025 [email or web address] [facility], [address], [place], [address], 11/07/2024 19:46:10 CBC w/ auto diff 2024 025 [email or web address] 3 [facility], [address], [place], [address], 11/22/2024 17:00:39 CMP, serum or plasma 2024 025 ALO [facility], [address], [place], [address], 11/09/2024 14:04:35 lipid panel, serum 2024 025 [id number] 3 [facility], [address], [place], [address], 11/22/2024 17:00:27 CBC w/ auto diff 2024 025 ALO [facility], [address], [place], [address], 11/09/2024 13:25:59 CMP, serum or plasma 2024 025 [email or web address] 3 [facility], [address], [place], [address], 11/21/2024 13:35:58 lipid panel, serum 2024 025 [id number] 3 [facility], [address], [place], [address], 11/21/2024 13:36:48 HIV 1 + 2 RNA panel, HERMES+probe , serum or plasma 2024 025 [id number] [facility], [address], [place], [address], 11/21/2024 14:35:49 hepatitis panel (A+B+C), acute, serum 2024 025 [id number] [facility], [address], [place], [address], 11/21/2024 14:35:49 Mycobacte rium tuberculo sis stimulate d gamma interfero n, qual, blood 2024 025 [id number] [facility], [address], [address], [place], [address], 11/21/2024 14:35:50 Referral None recorded. Procedures None recorded. Surgeries None recorded. Imaging None recorded. Medication Orders fluocinon iron 0.05 % topical ointment 2024 [address] [facility] [address] [place], [address], 12/12/2024 15:13:02 Patient TargetsNo targets recorded. Patient Instructions Encounter Date Encounter Id Patient Instructions Last Modified By Organization Details Last Modified Time 05/22/2024 [id number] Recommended returning to clinic in 4 months for fu [email or web address] Not available 05/22/2024 08:56:52 09/25/2024 [id number] Will see back in 1 month as scheduled Not available 09/25/2024 09:05:38 12/12/2024 [id number] Follow up as scheduled [email or web address] Not available 12/12/2024 15:19:57 Reason for Referral None Reported. Results Created Date Observation Date Name Description Value Unit Range Abnormal Flag Note LastModifiedBy Organization Detail LastModifiedTime 11/08/1911/07/2024 pregn sony test, urine HCG negati ve Not Available [facility] [address], [address], 11/07/2024 15:37:21 11/08/19 25 11/07/2024 pregn sony test, urine Specific [facility] Not Available [facility] [address], [address], 11/07/2024 15:37:21 Result Notes None recorded. Medical Equipment None Reported. Allergies No known [...] Details Last Updated DateTime 12/12/2024 170.18 cm Otilia [facility] 12/12/2024 15:02:15 Date Recorded Body height Body mass index (BMI) Body weight Heart rate Oxygen saturation Oxygen saturation in Arterial blood by Pulse oximetry Systolic blood pressure Diastolic blood pressure Provider Name and Address Organization Details Last Updated DateTime 170.18 cm 25.3 kg/m2 75787.7 7 g 79 /min 100 % 100 % 104 mm[Hg] 68 mm[Hg] October [place] [facility] 07:22:13 Social History Question Answer Notes LastModified by Organizat ion Details LastModified Time Tobacco Smoking Status Never Smoker [facility] 11/02/2023 11:41:08 Sunscreen Use? Yes Informatio n not available 12/12/2024 Tanning Bed Use No Informati on not available 12/12/2024 What Was The Date Of Your Most Recent Tobacco Screening? 05/22/2024 [email or web address] Information not available 05/22/2024 Sex: Female Functional Status Question Answer Note LastModified by Organizat ion Details LastModified Time Do you or have you ever used any other forms of tobacco or nicotine? No [email or web address] Information not available 05/22/2024 What is your [...] GI Problems Y Meningitis N Heart Attack (NE) N Ulcers N Other Skin Condition Y [...] SNOMED-CT Code Diagnosis ICD10 Code Diagnosis Note [id number] SHAHEEN RIVERA MD [address] [address] 11/02/2023 11:17:30 11/03/2023 04:25:24 Atopic dermatitis 59896004 L20.89 L40.0 L40.50 Z79.69 See 10/2022 note for full history She has been off of CellCept since 09/28/2023 . She stopped this due to cold per Dr. Membreno's instructio ns.She is getting labs done routinely through [facility] ruled out lupusShe has started Dexamethas one Her last steroid taper was in November 2022 Continue all free & clear detergentM ay consider tanning bed or home light box if not better and [facility] note shows patient does not have lupus. She has tried tanning bed in the past and it has helped. I had hesitated previously to do nbUVB because pt had originally said she had lupus, but pt has had numerous workups for lupus w/ +DAVID; rheum has said it is not lupus She did not have weeping while on cellcept Otezla may cause nausea/alan rrhea/GI upset, weight loss, and may be associated with worsening depression /SI. No worrisome side effects were noted. Continue OTC Heliocare 1qamContin ue OTC calciumCon tinue vitamin d3 100 iu dailyConti nue Claritin 10mg qamContinu e zyrtec 10mg qhsContinu e L-histidin e 1000mg 2PO BID- one case study showed 1/3 improvemen t after 8 week courseWill refill TAC 0.1% ointment to use BID for up to two weeks take one week break, repeat as neededReco mmended restarting CellCept through [facility] - call them to discuss Will start PA for Otezla Two sample packs of Otezla given today Gave informatio n for [facility] for f/u if not heard regarding rx May consider hand foot unit if not improvedMa y consider ELGIN inhibitor - she stopped smoking in 2021 [id number] SHAHEEN RIVERA MD [address] [place] [address] 05/22/2024 07:46:17 05/22/2024 09:00:22 Atopic dermatitis 77326620 L20.89 L40.0 L40.50 Z79.69 See 10/2022 note for full history Overall doing much better. She is on CellCept as prescribed by ACLShe is getting labs done routinely through [facility] ruled out lupus, DAVID-On Otezla since 12/01 She was clear while in the [place] Her last steroid taper was in November 2022 Continue all free & clear detergentM ay consider tanning bed or home light box if not better and ACL note shows patient does not have lupus. She has tried tanning bed in the past and it has helped. I had hesitated previously to do nbUVB because pt had originally said she had lupus, but pt has had numerous workups for lupus w/ +DAVID; rheum has said it is not lupus Otezla may cause nausea/alan rrhea/GI upset, weight loss, and may be associated with worsening depression /SI. No worrisome side effects were noted. Continue CellCept as prescribed by [facility] Continue OTC Heliocare 1qamContin ue OTC calciumCon tinue vitamin d3 100 iu dailyConti nue Claritin 10mg qamContinu e zyrtec 10mg qhsContinu e L-histidin e 1000mg 2PO BID- one case study showed 1/3 improvemen t after 8 week courseCont inue TAC 0.1% ointment to use BID for up to two weeks take one week break, repeat as neededCont inue Otezla qd Will refer to hand riveter for full panel food & environmen rajiv allergy testing due to flares with certain foods. She mentioned pineapple as one. No h/o asthma. May consider hand foot unit if not improvedMa y consider ELGIN inhibitor - she stopped smoking in 2021 Cont current course of Cellcept, Otezla, and TAC for now. [id number] HARISH GARCIA MD [facility] [address] [facility] [address] [place] [address] 05/25/2024 07:06:01 05/26/2024 04:08:23 Adverse reaction to food 917797851 T78.1XXA negative food allergy testing discussed food eliminatio n and reintroduc tion strategy Adverse re action to drug 36689910 T50.905A She is on claritin in AM, zyrtec in PM and benadryl 50 mg at nightdiscu ssed side effect of high dose antihistam ine including drowsiness , dry and urinary retention Recurrent acute sinusitis 952342287 J01.91 likely related to cellcept useconside r ENT evaluation if not improving Atopic dermatitis 008940 01 L20.9 severe persistent failed dupixent and Adbryon cellcept 1 g per day with good result Psoriasis 3735799 L40.9 on Otezla Chronic rhinitis 5925382 6 J31.0 negative environmen rajiv allergy testing [id number] SHAHEEN RIVERA MD [address] [place] [address] 09/25/2024 08:12:52 09/25/2024 09:08:02 Atopic dermatitis 85060882 L20.89 L40.0 L40.50 Z79.69 See 10/2022 note for full history May have DH component due to new possible celiac diagnosis and reported R knee rash (flares intermitte ntly, not present today) BSA: 4% She is on CellCept as prescribed by ACL. STOP THIS IN 2 weeks once current bottle done 10/2024.She is getting labs done routinely through [facility] ruled out lupus, DAVID-On Otezla since 12/01. STOP THIS TODAY 09/25/2024 She was clear while in the [place] Her last steroid taper was in November 2022 She has tried tanning bed in the past and it has helped. I had hesitated previously to do nbUVB because pt had originally said she had lupus, but pt has had numerous workups for lupus w/ +DAVID; rheum has said it is not lupus Pt reports that she is currently having workup for Celiac vs Crohn's. Labs shown on pts phone today as follows:+ endomysial IgA antibodies 1:40+ Reticulin IgA antibodyTT G IgG elevated at 55TTG IgA >100Gliadi n IgG & IgA >150 Labs very suggestive of celiac disease. Rec gluten free diet and f/u with GI. Pt has been on gluten free diet since 08/2024. She is still experienci ng rash flares Stop OtezlaCont inue all free & clear detergentC ontinue CellCept as prescribed by ACLContinu e OTC Heliocare 1qamContin ue OTC calciumCon tinue vitamin d3 100 iu dailyConti nue Claritin 10mg qamContinu e zyrtec 10mg qhsContinu e L-histidin e 1000mg 2PO BID- one case study showed 1/3 improvemen t after 8 week courseCont inue TAC 0.1% ointment to use BID for up to two weeks take one week break, repeat as needed Cont current course of Cellcept and TAC for now. Will plan to stop CellCept in 2 weeks. She is no longer seeing ACL May consider hand foot unit if not improvedMa y consider ELGIN inhibitor, specifical ly Rinvoq - she stopped smoking in 2021. Will hold off today due to current celiac workup. Rec speaking to GI since she does not currently have fu scheduled. Will give lab order today to get done 1 week after stopping Cellcept. May consider opzelura as well. Pt will call when knee is flaring and we will get in to see her shu for bx to r/o DH [id number] SHAHEEN RIVERA MD [address] [address] 11/07/2024 14:47:10 11/07/2024 15:43:37 Atopic dermatitis 25244596 L20.89 L40.0 L40.50 Z79.69 See 10/2022 note for full history May have DH component due to new possible celiac diagnosis and reported R knee rash (flares intermitte ntly, not present today). Rash seen today is atopic dermatitis , not c/w DH. BSA: 4% She stopped CellCept (as prescribed by ACL) 09/2024She is getting labs done routinely through [facility] ruled out lupus, DAVID-Was on Otezla from 11/2023-09/09 025. No hcage after stopping. She was clear while in [...] experienci ng rash flares of the eczema. Continue all free & clear detergentC ontinue CellCept as prescribed by ACLContinu e OTC Heliocare 1qamContin ue OTC calciumCon tinue vitamin D3 1000 IU dailyConti nue Claritin 10mg qamContinu e zyrtec 10mg qhsContinu e L-histidin e 1000mg 2PO BID- one case study showed 1/3 improvemen t after 8 week courseWill refill fluocinoni de 0.05% ointment to use twice a day to hands for up to two weeks, take one week break, repeat as needed She has stopped Otezla and Cellcept around 09/2024She is no longer seeing ACL May consider hand foot unit if not improvedWi ll plan to start ELGIN inhibitor, specifical ly Rinvoq - she stopped smoking in 2021. May consider opzelura as well. Pt will call when knee is flaring and we will get in to see her hsu for bx to r/o DH Long-term current use of drug therapy [id number] Z79.899 Z32.02 L20.89 L40.0 L40.50 Rinvoqis a ELGIN inhibitor oral medication that is used to treat atopic dermatitis and rheumatoid arthritis. Warnings include, but are not limited to, serious infection, increased risk of (in those 50 and older with at least 1 heart disease risk factor), major cardiovasc ular events like NE and CVA, cancers (especiall y if a [...] dered 09/2024 and pt had drawn at [facility]. We did not receive results; labs shown on pts phone today (photos in today's chart). Received some labs/not all. Hepatitis panel - negQTB-Gol d - negHIV1/2 - neg Will re-order CMP, Lipid panel, and CBC w/ Diff. today. 4 weeks:CBC with diff, LFTs 12 weeks:CBC with diff, LFTs, and lipid panel. Then every 3-4 months thereafter :CBC with diff, LFTs, and lipid panel Yearly QuantiFERO N Gold 2 sample bottles of Rinvoq given today to last 28 days. Pt will not start until we notify her of normal labs.Will need Tracie to send PA for Rinvoq once labs are back [id number] SHAHEEN RIVERA MD [address] [place] [address] 12/12/2024 14:48:38 12/12/2024 16:02:00 Atopic dermatitis 90656560 L20.89 L40.0 L40.50 Z79.69 See 10/2022 note [...] DH Long-term current use of drug therapy [id number] Z79.899 Z32.02 L20.89 L40.0 L40.50 Rinvoqis a ELGIN inhibitor oral medication that is used to treat atopic dermatitis and rheumatoid arthritis. Warnings include, but are not limited to, serious infection, increased risk of (in those 50 and older with at least 1 heart disease risk factor), major cardiovasc ular events like NE and CVA, cancers (especiall y if a [...] dered 09/2024 and pt had drawn at [facility]. We did not receive results; labs shown [...] Recorded Advance Directives Directive None Recorded Payers Insurance Date Sequence Insurance Name Policy Number Policy Parsons Covered Member ID Parsons Member ID Guarantor Name 09/21/2024 PAYMENT PLAN Kristin Pason 12/18/2024 1 [place] [id number] Kristin Galindo [id number] Kristin Galindo Notes Date Note Type [...] that she had done. SHAHEEN RIVERA MD [address] [place] [address], [phone], [facility] 05/22/2024 19:45:56 05/25/2024 text/html Mrs Galindo is a 39 years old female who is being seen in consultation for allergy at the request of Dr. Rivera. Allergic rhinitis: Patient lives in [place] for almost all her life. Patient has [...] was then referred to arthritic center at [place]. She was told she did not have lupus. She is on cellcept for eczema, which helped. She is also on Otezla for psoriasis. Drug allergy: no GERD: no symptoms of heart burn, no hx of anti-acid medication use Family history: mom has lupus History provided by patientNasal/Ocular: see aboveRespiratory: no hx of asthmaSkin: see above Food: see aboveInsect: no hx of anaphylaxis with insect stingsInfection Hx: see above Environmental HistoryHome: single family housePets:Air Conditioning: Central electric AC, Gas heatLiving Room:Bedroom:Smoke Exposure:Irritants: noOccupation: HARISH GARCIA MD [address] [place] [address], [phone], [facility] 05/25/2024 08:40:22 09/25/2024 text/html Patient is here for Atopic Dermatitis - location: hands, knees, back, stomach- treatments tried in past: Cellcept, heliocare, calcium, vitamin d- currently using: Cellcept, dexamethasone, TAC, fluocinonide, L histidine, claritin, Otezla, TAC ointment- hot, tender joints, stiffness in joints lasting longer than an hour, or pain in the Achilles tendon? Yes, R knee- reports: flaring up lately, pt thinks she may have Celiac or Crohn's - waiting on test results Pt is accompanied by SHAHEEN RIVERA MD [address] [place] [address], [phone], [facility] 09/25/2024 12:20:08 11/07/2024 text/html Patient is here for Atopic Dermatitis - location: hands, knees, back, stomach- treatments tried in past: Cellcept, heliocare, calcium, vitamin d- currently using: dexamethasone, fluocinonide, L histidine, Zyrtec, Claritin, TAC oint- hot, tender joints, stiffness in joints lasting longer than an hour, or pain in the Achilles tendon? No- reports: fine , just dry , I have had a couple flares flares everydayneeds refills of fluocinonidePt is accompanied by SHAHEEN RIVERA MD [address] [place] [address], [phone], [facility] 11/07/2024 19:45:49 12/12/2024 text/html Patient is here for Atopic [...] Pt is very happy with treatment SHAHEEN RIVERA MD [address] [place] [address], [phone], [facility] 12/17/2024 20:36:51 OBGyn Episode No OBEpisode recorded.
--- OUTSIDE RECORDS SUMMARY | 2025-01-08 07:32 | XMS_ITS | Patient Health Record ---
Author Organization [facility] Address [address] [place] [address] Care Team Providers Care Flat Hammerer Name Role Phone Jasbir Garrison Primary Care Provider Margaret Amor [phone] Allergies No Known Allergies Reason For Referral No Information Medications Medication SIG (Take, Route, Frequency, Duration) [...] Nonsmoker Encounters Encounter Location Date Provider Diagnosis [address] [address] 12/04/2024 Margaret Palomo Abrasion foot/toe S90.819A Assessments Encounter Date Diagnosis (ICD Code) Assessment Notes Treatment Notes Treatment Clinical Notes Section Notes 12/04/2024 Abrasion foot/toe (ICD-10 - S90.819A) keep clean and dry Visit summary given to and discussed with patient and/or parent who verbalizes understanding and agreement with plan of care. Plan Of Treatment No Information Insurance Providers Payer Name Payer Address Payer Phone Subscriber Number Group Number Insured Name Patient Relationship to Insured Coverage Start Date Coverage End Date [facility] [address] [place] [address] [id number] Kristin Galindo Self - patient is the insured Medical (General) History Medical History History ICD Code lupus eczema psoriasis celiac Surgical History Surgery Date(Month/Year) tubal ligation Hospitalization History Reason Date(Month/Year) see above
--- OUTSIDE RECORDS SUMMARY | 2025-01-08 07:32 | XMS_ITS | Patient Health Record ---
Author Organization [facility] Address [address] [id number] Care Team Providers Care Circular Ripsaw Operator Name Role Phone Mario Daniels Primary Care Provider [phone] Chiquis Starr Unavailable [phone] Allergies Allergen (clinical drug ingredient) Drug/Non Drug [...] AM Interpretation: Performing Lab: Notes/Report: Diarrhea Panel ([facility]) Reviewed date:06/11/2024 09:14:55 AM Interpretation: Performing Lab: Notes/Report: H-T4 free Reviewed date:06/11/2024 09:19:51 AM Interpretation: Performing Lab: Notes/Report: T4F 1.04 0.78-2.19 ng/dl H-CMP Reviewed date:06/11/2024 09:18:57 AM Interpretation: Performing Lab: Notes/Report: NA 140 136-145 mmol/L K 4.3 3.5-5.1 mmoL/L CL 103 98-107 mmol/L CO2 27 22.0-30.0 mmol/L GAP 14.3 5-15 mEq/L BUN 5 7-17 mg/dl CREATT 0.50 0.52-1.04 mg/dl GFRAA 166 >60 ML/MIN EGFR 137 >60 ml/min GLU 91 74-100 mg/dl CA 10.5 8.4-10.2 mg/dl BILIT 0.6 0.2-1.3 mg/dl AST 31 14-36 U/L ALT 27 12-78 U/L TP 7.6 6.3-8.2 g/dl ALB 4.9 3.5-5.0 g/dl GLOB 2.7 1.3-3.2 g/dL AGRATIO 1.8 1.1-1.8 ALP 82 38-126 U/L H-DIARRHEA PANEL Reviewed date:06/11/2024 09:18:35 AM Interpretation: Performing Lab: Notes/Report: AEROMONAS Not Detected NotDetected CAMPYLOBACTER Not Detected NotDetected CLOSTR DIFFICIL Not Detected NotDetected PLESIOMONAS Not Detected NotDetected SALMONELLA, PCR Not Detected NotDetected YERSINIA Not Detected NotDetected VIBRIO, PCR Not Detected NotDetected VIBRIO CHOLERAE Not Detected NotDetected ECOLI (EAEC) Not Detected NotDetected ECOLI (EPEC) Not Detected NotDetected ECOLI (ETEC) Not Detected NotDetected SHIGATOXIN Not Detected NotDetected ECOLI O157 Not Detected NotDetected SHIG-INVAS ECOL Not Detected NotDetected CRYPTO Not Detected NotDetected CYCLOSPORA Not Detected NotDetected EHISTOLYTICA Not Detected NotDetected GIARDIA Not Detected NotDetected ADENO STOOL Not Detected NotDetected ASTROVIRUS Not Detected NotDetected NOROVIRUS Not Detected NotDetected ROTOVIRUS A Not Detected NotDetected SAPOVIRUS Not Detected NotDetected H-TSH Reviewed date:06/11/2024 09:19:28 AM Interpretation:1.19 Performing Lab: Notes/Report: TSH 1.19 0.465-4.68 uIU/mL Reason For Referral Diagnosis 1 Abdominal pain (R10. 9) Referral Organization [facility] Referring Provider First Name Chiquis Referring Provider Last Name Ro Referring Provider Speciality Family [facility] augieice Referred Provider ORLANDO BOURGEOIS Referred Provider Specialty Gastroentero logy General Notes RoAlinaChiquis 5:23:14 PM > diarrhea for 1 month; on derm meds, CellCept and Otezla which may be cause; Dermatology wishes her to continue these med; diarrhea panel and labs are pending, Irene Martins 06/05/2024 8:40:26 AM > sent referral to Dr. Bourgeois office Referral Priority Routine Medications Medication SIG (Take, Route, Frequency, Duration) Notes Start Date End Date Status Hyoscyamine Sulfate 0.125 MG 1 tablet as needed Orally Four times a day 06/04/2024 Active Otezla 30 MG 1 tablet Orally Twic e a day; Duration: 30 day(s) Active CellCept 250 MG 4 caps daily A ctive Immunizations Vaccine Route Administration Date Status Comme nts xFluzone Intradermal (18-64yrs)-trivalent ID Intradermal 04/10/2013 Administered xFlu shot- 6months-36 months of zug-HUWM-UKUV-trivalent IM Intramuscular 04/17/2012 Administered Fluzone Quad (6months&older) Unknown 04/05/2017 Administered COVID 19 Moderna Unknown 09/03/2020 Administered COVID 19 Moderna Unknown 10/01/2020 Administered Problems Problem Type SNOMED Code ICD Code Onset Dates Problem Status W/U Status Risk Notes Problem Eczema (93735511) eczema (692.9) Active confirmed Problem Anemia (148470150) Anemia NOS (285.9) Active confirmed Problem Insomnia (695015210) INSOMNIA NOS (780.52) Active confirmed Problem Hypoglycemia (371689046) Hypoglycemia (E16.2) Active confirmed Problem Dysthymia (25423443) Dysthymic disorder (F34.1) Active confirmed Problem Eczema (93601524) Eczema, unspecified type (L30.9) Active confirmed Problem Adjustment disorder with anxious mood (87333653) Adjustment disorder with anxious mood (F43.22) Active confirmed Problem Atopic dermatitis (37949125) Atopic dermatitis, unspecified type (L20.9) Active confirmed Vital Signs Heart Rate 85 /min 06/04/2024 Blood pressure diastolic 68 mm Hg 06/04/2024 Height 67.50 in 06/04/2024 Blood pressure systolic 104 mm Hg 06/04/2024 Weight 162.2 lbs 06/04/2024 BMI 25.03 kg/m2 06/04/2024 Encounters Encounter Location Date Provider Diagnosis [facility] [address] NGOZI Sheikh [id number] 06/04/2024 Chiquis Starr Abdominal pain R10.9 ; [...] type (ICD-10 - L30.9) Plan Of Treatment No Information Insurance Providers Payer Name Payer Address Payer Phone Subscriber Number Group Number Insured Name Patient Relationship to Insured Coverage Start Date Coverage End Date [employer] [address] [place] [address] [id number] Kristin Galindo Self - patient is the insured Medical (General) History Medical History History ICD Code Eczema, since childhood, followed by zuleima mattish Surgical History Surgery Date(Month/Year) C section 2004 Breast Biopsy x 2 12/12, 02/11 C section 2005 C section 2013 Utrerine Ablation 02/2017 Hospitalization History Reason Date(Month/Year) Child - [facility] 10/25/2003 Child - [facility] 12/03/2005 Child - [facility] 09/29/2012
[2025-01-08 08:08] LABS: Hematocrit 37.4 % (37.0-47.0); Hemoglobin 12.8 g/dL (12.2-16.2); Immature Granulocytes % 0.2 %; Mean Corpuscular HGB Conc 34.2 g/dL (31.8-35.4); Mean Corpuscular Hemoglobin 30.7 pg (27.0-31.2); Mean Corpuscular Volume 89.7 fl (81-99); Nucleated Red Blood Cells % 0 %; Platelet Count 238 K/mm3 (142-424); Red Blood Count 4.17 M/mm3 (4.20-5.40); Red Cell Distribution Width-SD 43.9 fL; White Blood Count 4.0 K/mm3 (4.8-10.8)
[2025-01-08 08:28] LABS: Alanine Aminotransferase 21 U/L (12-78); Aspartate Amino Transferase 30 U/L (14-36)
== END 2025-01-08 23:59 | disposition home or self-care (01) ==
LOC: LAB 07:29
PROVIDERS: PCP Family Medicine; Visit Provider Dermatology
DX: L20.89 Other atopic dermatitis (principal); L40.0 Psoriasis vulgaris; L40.50 Arthropathic psoriasis, unspecified; Z79.69 Long term (current) use of other immunomodulators and immunosuppressants
CPT/HCPCS: 36415; 84450; 84460; 85025

== ENCOUNTER 2025-02-09 10:26 | Outpatient (CLI) | payer BC, SELFPAY ==
--- OUTSIDE RECORDS SUMMARY | 2023-10-31 07:45 | XMS_ITS ---
Author Organization Rich Address 1210 [facility] [address] [place] [phone] Care Team Providers Care Society Reporter Name Role Phone Mario Daniels Primary Care Provider Chiquis Starr Unavailable [phone] Jasbir Garrison Unavailable [phone] Allergies Allergen (clinical drug ingredient) Drug/Non Drug [...] Location Date Provider Diagnosis [facility] [address] [place] [facility] [address] [place] [phone] 10/31/2023 Jasbir Garrison Rash R21 Assessments Encounter Date Diagnosis (ICD Code) Assessment Notes Treatment Notes Treatment Clinical Notes Section Notes 10/31/2023 Rash (ICD-10 - R21) Patient to see her logistics tech in 2 days Plan Of Treatment Medication [...] * Kristin DONOHUE ADOB: (40 yo F)Acc No.[id number]:10/31/2023 Progress Notes Patient: Kristin GUAMAN Provider: Herman Garrison M.D. :1985 A ge:38 Y S ex:Female Date:10/31/2023 Address:[address] [place] [address] Pcp:Mario Daniels Subjective: * Chief Complaints: * [...] Hospitalization/Major Diagno stic Procedure: C hild - [facility] 10/25/2003, Child - [facility] 12/03/2005, Child - [facility] 09/29/2012. * Family History: F ather: [...] * Images: Billing Information: * Visit Code: 45774 Office Visit, Est Pt., Level 3. * Procedure Codes: * Electronic signature of Hedy Garrison MD on 02/09/2025 at 10:29 AM EDT Sign off status: Pending * Provider: Herman Garrison M.D. Date: 0 10/31/2023 Generated for Annette gonsalez/Jessica/Butchitting on: 0 02/09/2025 10:29 AM EDT History and Physical Notes * [...]
--- OUTSIDE RECORDS SUMMARY | 2024-06-04 11:30 | XMS_ITS ---
Author Organization [facility] Address [address] [facility] [address] [id number] Care Team Providers Care Geology Scientist Name Role Phone Mario Daniels Primary Care Provider Chiquis Starr Unavailable [phone] Allergies Allergen (clinical drug ingredient) Drug/Non Drug [...] AM Interpretation: Performing Lab: Notes/Report: Diarrhea Panel ([facility]) Reviewed date:06/11/2024 09:14:55 AM Interpretation: Performing [...] 06/04/2024 Encounters Encounter Location Date Provider Diagnosis [facility] [address] [place], [place] [id number] 06/04/2024 Chiquis Starr Abdominal pain R10.9 ; [...] * Kristin DONOHUE ADOB: (40 yo F)Acc No.[id number]:06/04/2024 Progress Notes Patient: Kristin GUAMAN Provider: ANYI Chapman :1985 A ge:39 Y S ex:Female Date:06/04/2024 Address:[address] [place] [address] Pcp:Mario Daniels Subjective: * Chief Complaints: * [...] PCP; decrease in appetitie. H PI: reviewed notch grinder report from [facility] and last Belt Weaver report from [facility]; neither mention diarrhea as an issue. [...] Hospitalization/Major Diagno stic Procedure: C hild - [facility] 10/25/2003, Child - [facility] 12/03/2005, Child - [facility] 09/29/2012. * Family History: F ather: [...] * Procedure Codes: 9 4760 [place], [address] CAPILLARY BLOOD DRAW, 79180 CBC WITH AUTO DIFF * Follow Up: w ill notify of test results,and prn * Images: Billing Information: * Visit Code: 22083 Office Visit, Est Pt., Level 4. * Procedure Codes: [address] [place]. [address] CAPILLARY BLOOD DRAW. 01143 CBC WITH AUTO DIFF. * Electronic signature of Kaley Starr APRN on 02/09/2025 at 10:29 AM EDT Sign off status: Pending * Provider: ANYI Chapman Date: 1 08/04/2023 Generated for Annette gonsalez/Jessica/eTransmitting on: 0 02/09/2025 10:29 AM EDT History and Physical Notes * HPI (History of Present Illness) Category Sub-Category Detail Notes Category Not es Gastroenterology Fever 3-4 times/d ay stool with mucous ; diarrhea started in04/2024; saw homer chackoogist 2 weeks ago and told to [...] Belching HPI reviewed allerg ist report from [facility] and last Belt Weaver report from [facility]; neither mention diarrhea as an issue [...]
--- OUTSIDE RECORDS SUMMARY | 2025-02-09 10:29 | XMS_ITS | Patient Health Record ---
Author Organization [facility] C Address [address] [place] [address] Care Team Providers Care Platform Software Engineer Name Role Phone Jasbir Garrison Primary Care Provider Margaret Amor [phone] Allergies No Known Allergies Reason For Referral No Information Medications Medication SIG (Take, Route, Frequency, Duration) Notes Start Date End Date Status Rinvoq 15 MG 1 tablet Orally Once a day Active Immunizations Vaccine Route Administration Date Status Comme nts Td Vaccine, TENIVAC, >/= 7yo IM Intramuscular 12/04/2024 Administered Social History Tobacco Use: Social History Observation Description Date Details (start date - stop date) Never Smoker NA - NA Tobacco Control (Standard) Question Answer Notes Tobacco use: Nonsmoker Encounters Encounter Location Date Provider Diagnosis [address] [address] 12/04/2024 Margaret Palomo Abrasion foot/toe S90.819A Assessments [...] Coverage Start Date Coverage End Date [facility] [address] [place] [address] [id number] Kristin Galindo Self - patient is the insured Medical (General) History Medical History History ICD Code lupus eczema psoriasis celiac Surgical History Surgery Date(Month/Year) tubal ligation Hospitalization History Reason Date(Month/Year) see above
--- OUTSIDE RECORDS SUMMARY | 2025-02-09 10:29 | XMS_ITS | Clinical Summary ---
Author Organization [facility] Address [address] [place] [address] Care Team Providers Care Central Control Room Operator Name Role Phone Luis Daniels MD Primary Care Provider Allergies No known active allergies Medications Apremilast (Otezla) 30 MG tablet Take 1 tablet by mouth Every 12 (Twelve) Hours. 60 tablet 5 4 Active DULoxetine HCl (DRIZALMA) 30 MG capsuleIndicati ons:Systemic lupus erythematosus, unspecified SLE type, unspecified organ involvement status Take 1 capsule by mouth Daily. 30 capsule 3 4 Active Polypodium Leucotomos (Heliocare) 240 MG capsule Take by mouth. Acti ve cetirizine (zyrTEC) 10 MG tablet Take 1 tablet by mouth Daily. Active fluocinonide (LIDEX) 0.05 % ointment Apply 1 Application topically to the appropriate area as directed 1 (One) Time Per Week. 4 Active triamcinolone (KENALOG) 0.1 % ointment Apply 1 Application topically to the appropriate area as directed At Night As Needed. 4 Active Apremilast (Otezla) 30 MG tablet Take 30 mg by mouth 2 (Two) Times a Day. 4 Active diphenhydrAMINE (BENADRYL) 25 mg capsule Take 1 capsule by mouth 2 (Two) Times a Day. 4 Active mycophenolate (CELLCEPT) 500 MG tablet TAKE 2 TABLETS BY MOUTH 2 TIMES A DAY 120 tablet 1 5 Active Upadacitinib ER (Rinvoq) 15 MG tablet sustained-relea se 24 hour Take 1 tablet by mouth Daily. 30 tablet 1 01/15/2025 9:55 AM EDT 5 Active Upadacitinib ER (Rinvoq) 15 MG tablet sustained-relea se 24 hour Take 1 tablet by mouth Daily. 30 tablet 12/06/2024 2:58 PM EDT 5 025 Discontin ued(Reord er) Active Problems Problem Noted Date Diagnosed Date Atopic dermatitis 11/14/2024 Alopecia 03/29/2024 Assessment & Plan (03/29/2024 4:10 PM EDT): Dr. Rivera started clobetasol solution. Improving. Slowly regrowing. Systemic lupus erythematosus 03/28/2024 Assessment & Plan (03/29/2024 4:09 PM EDT): Positive direct Eloise. Dsdna +. Other serologies [...] or ACT mouth rinse. Xylimelts - [facility] [place]. [place] spray from [facility] for mouth dryness ([facility]) Plenty of fluids. If no Asthma or COPD there are two prescriptions available. Evoxac or Pilocarpine. Osteoarthritis of lumbar spine 03/28/2024 Assessment & Plan (03/28/2024 1:03 PM EDT): DDD. S/p L4-5 herniation. S/p 3 surgeries. Currently seeing [facility]. No surgery recommended. Seeing [facility] for treatment of chronic pain. [...] EDT): Cellcept Labs every 2-3 months Positive ELOISE (antinuclear antibody) 03/19/2024 Psoriasis 11/03/2023 Family History Medical History Relation Name Comments [...] 91 03/29/2024 3:29 PM EDT Temperature 37.1 C (98.7 F) 03/29/2024 3:29 PM EDT Respiratory Rate 14 04/11/2018 12:53 PM EDT Oxygen Saturation 98% 04/11/2018 12:53 PM EDT Inhaled Oxygen Concentration - - Weight 73.6 kg (162 lb 3.2 oz) 03/29/2024 3:29 P M EDT Height 172.7 cm (5' 8 ) 03/29/2024 3:29 PM EDT Body Mass Index 24.66 03/29/2024 3:29 PM EDT Plan of Treatment Health Maintenance Due Date Last Done Comments Annual Gynecologic Pelvic and Breast Exam 1985 Pneumococcal Vaccine 0-49 (1 of 2 - PCV) 01/07/2004 TDAP/TD VACCINES (1 - Tdap) 01/07/2004 PAP SMEAR 2006 ANNUAL PHYSICAL 04/11/2018 HEPATITIS C SCREENING 04/11/2018 COVID-19 Vaccine (3 - Moderna risk series) 10/29/2020 10/01/2020, 09/03/2020 MAMMOGRAM 2025 INFLUENZA VACCINE 04/10/2025 Goals Goal Patient Goal Type Associated Problems Recent Progress Patient-Stated? Author Specialty Pharmacy General Goal General No Sun Marrero [facility] Note: A reduction in BSA of skin lesions on the body. Insurance [employer] EMPLOYEE Care Teams Central Control Room Operator Relationship Specialty Start Date End Date Luis Daniels MD PCP - General Neurology 08/05/16
--- OUTSIDE RECORDS SUMMARY | 2025-02-09 10:29 | XMS_ITS ---
Author Organization [facility] Address [address] [place] [address] Care Team Providers Care Crane Ladle Person Name Role Phone Luis Daniels MD Primary Care Provider [phone] Dermatology Status:Enrolled (Active) Start date:11/14/2024 Enrollment date:11/14/2024 Enrollment reason:New start at Current support & services provided:Clinical Assessment, Refill Coordination , Benefits Investigation, [facility] Dispensing Linked medications:Upadacitinib (Active) Linked problems:Atopic dermatitis (Active) Case Team Name Relationship Phone Sun Hudson Solder Leveler Printed Circuit Boards Banquet Attendant Continued Care and Services Coordination
--- OUTSIDE RECORDS SUMMARY | 2025-02-09 10:29 | XMS_ITS | Patient Health Record ---
Author Organization [facility] Address [address] [id number] Care Team Providers Care College Instructor Name Role Phone Mario Daniels Primary Care Provider [phone] Chiquis Starr Unavailable [phone] Allergies Allergen (clinical drug ingredient) Drug/Non Drug [...] AGRATIO 1.8 1.1-1.8 ALP 82 38-126 U/L H-TSH Reviewed date:06/11/2024 09:19:28 AM Interpretation:1.19 Performing Lab: Notes/Report: TSH 1.19 0.465-4.68 uIU/mL H-DIARRHEA PANEL Reviewed date:06/11/2024 09:18:35 AM Interpretation: [...] Not Detected NotDetected SAPOVIRUS Not Detected NotDetected Reason For Referral Diagnosis 1 Abdominal pain (R10. 9) Referral Organization [facility] Referring Provider First Name Chiquis Referring Provider Last Name Ro Referring Provider Speciality Family [facility] auigeice Referred Provider ORLANDO BOURGEOIS Referred Provider Specialty [...] 04/10/2013 Administered xFlu shot- 6months-36 months of tif-TCYH-LJOX-trivalent IM Intramuscular 04/17/2012 Administered Fluzone Quad (6months&older) Unknown 04/05/2017 Administered COVID 19 Moderna Unknown 09/03/2020 Administered COVID 19 Moderna Unknown 10/01/2020 Administered Problems Problem Type SNOMED Code ICD Code Onset Dates Problem Status W/U Status Risk Notes Problem Eczema (32226398) eczema (692.9) Active confirmed Problem Anemia (283995633) Anemia NOS (285.9) Active confirmed Problem Insomnia (418591991) INSOMNIA NOS (780.52) Active confirmed Problem Hypoglycemia (421770870) Hypoglycemia (E16.2) Active confirmed Problem Dysthymia (64294942) Dysthymic disorder (F34.1) Active confirmed Problem Eczema (76597698) Eczema, unspecified type (L30.9) Active confirmed Problem Adjustment disorder with anxious mood (53676128) Adjustment disorder with anxious mood (F43.22) Active confirmed Problem Atopic dermatitis (09780532) Atopic dermatitis, unspecified type (L20.9) Active confirmed Vital Signs Heart Rate 85 /min 06/04/2024 Blood pressure diastolic 68 mm Hg 06/04/2024 Height 67.50 in 06/04/2024 Blood pressure systolic 104 mm Hg 06/04/2024 Weight 162.2 lbs 06/04/2024 BMI 25.03 kg/m2 06/04/2024 Encounters Encounter Location Date Provider Diagnosis [facility] [address] [place] Sheikh [phone] 06/04/2024 Chiquis Starr Abdominal pain R10.9 ; [...] [employer] [address] [place] [address] [id number] Kristin Galindo Self - patient is the insured Medical (General) History Medical History History ICD Code Eczema, since childhood, followed by zuleima mattish Surgical History Surgery Date(Month/Year) C section 2004 Breast Biopsy x 2 12/12, 02/11 C section 2005 C section 2013 Utrerine Ablation 02/2017 Hospitalization History Reason Date(Month/Year) Child - [facility] 10/25/2003 Child - [facility] 12/03/2005 Child - [facility] 09/29/2012
[2025-02-09 10:47] LABS: Hematocrit 40.7 % (37.0-47.0); Hemoglobin 13.7 g/dL (12.2-16.2); Immature Granulocytes % 0.4 %; Mean Corpuscular HGB Conc 33.7 g/dL (31.8-35.4); Mean Corpuscular Hemoglobin 30.8 pg (27.0-31.2); Mean Corpuscular Volume 91.5 fl (81-99); Nucleated Red Blood Cells % 0 %; Platelet Count 323 K/mm3 (142-424); Red Blood Count 4.45 M/mm3 (4.20-5.40); Red Cell Distribution Width-SD 45.6 fL; White Blood Count 5.1 K/mm3 (4.8-10.8)
[2025-02-09 11:21] LABS: Alanine Aminotransferase 21 U/L (12-78); Aspartate Amino Transferase 29 U/L (14-36); Cholesterol 172 mg/dl (140-200); HDL Cholesterol 82 mg/dl (40-60); Triglycerides 86 mg/dl (30-150)
== END 2025-02-09 23:59 | disposition home or self-care (01) ==
LOC: LAB 10:27
PROVIDERS: PCP Family Medicine; Visit Provider Dermatology
DX: L40.0 Psoriasis vulgaris (principal); L20.89 Other atopic dermatitis; L40.50 Arthropathic psoriasis, unspecified; Z79.69 Long term (current) use of other immunomodulators and immunosuppressants
CPT/HCPCS: 36415; 80061; 84450; 84460; 85025

== ENCOUNTER 2025-02-28 15:40 | Outpatient (CLI) | payer BC, SELFPAY ==
--- OUTSIDE RECORDS SUMMARY | 2023-10-31 07:45 | XMS_ITS ---
Author Organization Rich Address 1210 [facility] [address] [place] [id number] Care Team Providers Care Tenant Relations Coordinator Name Role Phone Mario Daniels Primary Care Provider Chiquis Starr Unavailable [phone] Jasbir Garrison Unavailable [phone] Allergies Allergen (clinical drug ingredient) Drug/Non Drug Allergy documented on EMR Reaction Allergy Type Onset Date Status triamcinolone Triamcinolone rash Drug Allergy Active REASON FOR VISIT hands swollen Medications Medication SIG (Take, Route, Fr equency, Duration) Notes Start Date End Date Status dexAMETHasone 4 MG 1 tablet Orally Two times a day; Duration: 5 day(s) 10/31/2023 Active CellCept 250 MG 4 caps daily A ctive Vital Signs Blood pressure systolic 114 mm Hg 10/31/19 24 Blood pressure diastolic 76 mm Hg 024 Heart Rate 80 /min 10/31/2023 Height 67.50 in 10/31/2023 Weight 167 lbs 10/31/2023 BMI 25.77 kg/m2 10/31/2023 Encounters Encounter Location Date Provider Diagnosis Rich [address] [place] [facility] [address] [place] [phone] 10/31/2023 Jasbir Garrison Rash R21 Assessments Encounter Date Diagnosis (ICD Code) Assessment Notes Treatment Notes Treatment Clinical Notes Section Notes 10/31/2023 Rash (ICD-10 - R21) Patient to see her residence supervisor in 2 days Plan Of Treatment Medication Medication Name Sig Start Date Stop Date Notes dexAMETHasone 4 MG 1 tablet Orally Two times a day; Duration: 5 day(s) 10/31/2023 Treatment Notes Assessment Notes Rash Patient to see her d ermatologist in 2 days Next Appt Details Follow Up: via phone to repo rt progress, Reason: Progress Notes * Kristin DONOHUE ADOB: (40 yo F)Acc No.[id number]:10/31/2023 Progress Notes Patient: Kristin GUAMAN Provider: Herman Garrison M.D. :1985 A ge:38 Y S ex:Female Date:10/31/2023 Address:[address] [place] [address] Pcp:Mario Daniels Subjective: * Chief Complaints: * 1 . Hands swollen. * HPI: D ermatology: 38 year old female presents with c/o rash. c/o blisters?Pt complains of blisters on both hands. States they have opened up and drained but pt still has some swelling, dryness and pain. Pt states she was diagnosed with Psoriatic Arthritis and is unsure if this is related . * ROS: D ERMATOLOGY: no R maricruz. n o H rowdy. G ASTROENTEROLOGY: no N ausea. n o V omiting. U ROLOGY: no D ifficulty urinating. n o B lood in urine. * Medical History: E wyatt, since childhood, followed by dermatology. * Surgical History: C section 2003, Breast Biopsy x 2 12/12, 02/11, C section 2005, C section 2012, Utrerine Ablation 02/2017. * Hospitalization/Major Diagno stic Procedure: C hild - [facility] 10/25/2003, Child - [facility] 12/03/2005, Child - [facility] 09/29/2012. * Family History: F ather: alive, Crohns disease. M other: alive, Lupus. 2 brother(s) - healthy. 3 daughter(s) - healthy. . * Social History: C URRENT TOBACCO USE S moking Status: Patient does NOT smoke. C affeine: yes, frequency:. Marital Status: . Past smoking status: yes, PPD: 1/2 , years: since age of 17 yr ,determination:. Alcohol: Yes, Type: , Frequency: ,Years: , Determination:. * Medications: T aking CellCept 250 MG Capsule 4 caps daily , Discontinued Ferrous Sulfate 325 (65 Fe) MG Tablet 1 tablet Orally daily , Discontinued Heliocare Advanced 250-120 MG Capsule as directed Orally daily , Discontinued Calcium 600 MG Tablet 2 tab Orally Once a day , Discontinued predniSONE 10 MG Tablet 1 tablet Orally Once a day , Discontinued Folic Acid 1 MG Tablet 1 tablet Orally Once a day , Discontinued Medrol 4 MG Tablet Therapy Pack as directed orally daily , Discontinued Adbry 150 MG/ML Solution Prefilled Syringe as directed subcutaneously every 2 weeks , Medication List reviewed and reconciled with the patient * Allergies: T riamcinolone: rash - Side Effects. Objective: * Vitals: W t:167, Temp:98.1, BP:114/76, HR:80, Nurse:alessandra, Ht: 67.50, BMI:25.77. * Examination: G eneral Examination: General Appearance: N AD. S kin: f airly diffuse rash on hands, palms more effected, rough, dry skin, confluent on fingers. Assessment: * Assessment: 1. R maricruz - R21 (Primary) Plan: * Treatment: * Follow Up: v ia phone to report progress * Images: Billing Information: * Visit Code: 19659 Office Visit, Est Pt., Level 3. * Procedure Codes: * Electronic signature of Hedy Garrison MD on 02/28/2025 at 03:43 PM EDT Sign off status: Pending * Provider: Herman Garrison M.D. Date: 0 10/31/2023 Generated for Annette gonsalez/Jessica/Butchitting on: 0 02/28/2025 03:43 PM EDT History and Physical Notes * HPI (History of Present Illness) Category Sub-Category Detail Notes Category Not es Dermatology rash blisters Pt complains of blis ters on both hands. States they have opened up and drained but pt still has some swelling, dryness and pain. Pt states she was diagnosed with Psoriatic Arthritis and is unsure if this is related Examination Category Sub-Category Detail Notes Category Not es General Examination General Appearance: NAD Skin: fairly diffuse rash on hands, palms more effected, rough, dry skin, confluent on fingers
--- OUTSIDE RECORDS SUMMARY | 2024-06-04 11:30 | XMS_ITS ---
Author Organization [facility] Address [address] [facility] [address] [id number] Care Team Providers Care Top Inventory Control Executive Name Role Phone Mario Daniels Primary Care Provider Chiquis Starr Unavailable [phone] Allergies Allergen (clinical drug ingredient) Drug/Non Drug [...] AM Interpretation: Performing Lab: Notes/Report: Diarrhea Panel ([facility]) Reviewed date:06/11/2024 09:14:55 AM Interpretation: Performing [...] 06/04/2024 Encounters Encounter Location Date Provider Diagnosis [facility] [address] [place], [place] [id number] 06/04/2024 Chiquis Starr Abdominal pain R10.9 ; [...] * Kristin DONOHUE ADOB: (40 yo F)Acc No.[id number]:06/04/2024 Progress Notes Patient: Kristin GUAMAN Provider: ANYI Chapman :1985 A ge:39 Y S ex:Female Date:06/04/2024 Address:[address] [place] [address] Pcp:Mario Daniels Subjective: * Chief Complaints: * [...] PCP; decrease in appetitie. H PI: reviewed spiral winding machine helper report from [facility] and last Audio Visual Coordinator report from [facility]; neither mention diarrhea as an issue. [...] stic Procedure: C hild - [facility] 10/25/2003, Child - [facility] 12/03/2005, Child - [facility] 09/29/2012. * Family History: F ather: [...] * Procedure Codes: 9 4760 [place], [address] CAPILLARY BLOOD DRAW, 33888 CBC WITH AUTO DIFF * Follow Up: w ill notify of test results,and prn * Images: Billing Information: * Visit Code: 63517 Office Visit, Est Pt., Level 4. * Procedure Codes: [address] [place]. [address] CAPILLARY BLOOD DRAW. 13051 CBC WITH AUTO DIFF. * Electronic signature of Kaley Starr APRN on 02/28/2025 at 03:42 PM EDT Sign off status: Pending * Provider: ANYI Chapman Date: 1 08/04/2023 Generated for Annette gonsalez/Jessica/eTransmitting on: 0 02/28/2025 03:42 PM EDT History and Physical Notes * HPI (History of Present Illness) Category Sub-Category Detail Notes Category Not es Gastroenterology Fever 3-4 times/d ay stool with mucous ; diarrhea started in04/2024; saw homer chcakoogist 2 weeks ago and told to see [...] Belching HPI reviewed allerg ist report from [facility] and last Audio Visual Coordinator report from [facility]; neither mention diarrhea as an issue [...]
--- OUTSIDE RECORDS SUMMARY | 2025-02-28 15:43 | XMS_ITS | Clinical Summary ---
Author Organization [facility] Address [address] [place] [address] Care Team Providers Care Chief Data Officer Name Role Phone Luis Daniels MD Primary [...] 1 tablet by mouth Daily. 30 tablet 2 5 Active Upadacitinib ER (Rinvoq) 15 MG tablet sustained-relea se 24 hour Take 1 tablet by mouth Daily. 30 tablet 1 02/11/2025 9:36 AM EDT 025 Discontin ued(Reord er) Active Problems Problem [...] or ACT mouth rinse. Xylimelts - [facility], [facility]. [place] spray from [facility] for mouth dryness ([facility]) Plenty of fluids. If no Asthma or COPD there are two prescriptions available. Evoxac or Pilocarpine. Osteoarthritis of lumbar spine 03/28/2024 Assessment & Plan (03/28/2024 1:03 PM EDT): DDD. S/p L4-5 herniation. S/p 3 surgeries. Currently seeing [facility]. No surgery recommended. [facility] treatment of chronic pain. [...] Pharmacy General Goal General No Sun Marrero RPH Note: A reduction in BSA of skin lesions on the body. Insurance EMPLOYEE Care Teams Chief Data Officer Relationship Specialty Start Date End Date Luis Daniels MD PCP - General Neurology 08/05/16
--- OUTSIDE RECORDS SUMMARY | 2025-02-28 15:43 | XMS_ITS | Patient Health Record ---
Author Organization [facility] C Address [address] [place] [address] Care Team Providers Care Commonwealth Attorney Name Role Phone Jasbir Garrison Primary Care Provider Margaret Amor [phone] Allergies No Known Allergies Reason For Referral No Information Medications Medication SIG (Take, Route, Frequency, Duration) Notes Start Date End Date Status Rinvoq 15 MG 1 tablet Orally Once a day Active Immunizations Vaccine Route Administration Date Status Comme nts Td: TENIVAC (7yr & older) IM Intramuscular 12/04/2024 Admi nistered Social History Tobacco Use: Social History Observation Description Date Details (start date - stop date) Never Smoker NA - NA Tobacco Control (Standard) Question Answer Notes Tobacco use: Nonsmoker Encounters Encounter Location Date Provider Diagnosis [address] [address] 12/04/2024 Margaret Palomo Abrasion foot/toe S90.819A Assessments [...] Date [facility] [address] [place] [address] [id number] Kristin Galindo Self - patient is the insured Medical (General) History Medical History History ICD Code lupus eczema psoriasis celiac Surgical History Surgery Date(Month/Year) tubal ligation Hospitalization History Reason Date(Month/Year) see above
--- OUTSIDE RECORDS SUMMARY | 2025-02-28 15:43 | XMS_ITS ---
Author Organization [facility] Address [address] [place] [address] Care Team Providers Care Robotics Application Engineer Name Role Phone Luis Daniels MD Primary Care Provider [phone] Dermatology Status:Enrolled (Active) Start date:11/14/2024 Enrollment date:11/14/2024 Enrollment reason:New start at Current support & services provided:Clinical Assessment, Refill Coordination , Benefits Investigation, [facility] Dispensing Linked medications:Upadacitinib (Active) Linked problems:Atopic dermatitis (Active) Case Team Name Relationship Phone Sun Hudson Telecom Billing Analyst Candy Vendor Continued Care and Services Coordination
--- OUTSIDE RECORDS SUMMARY | 2025-02-28 15:43 | XMS_ITS | Patient Health Record ---
Author Organization [facility] Address [address] [id number] Care Team Providers Care Wheel Cleaner Name Role Phone Mario Daniels Primary Care Provider Chiquis Starr Unavailable [phone] Allergies Allergen (clinical drug ingredient) Drug/Non Drug [...] Last Name Ro Referring Provider Speciality Family [facility] augieice Referred Provider ORLANDO BOURGEOIS Referred Provider Specialty Gastroentero logy General Notes Starr,Chiquis 5:23:14 PM > diarrhea for 1 month; [...] Vaccine Route Administration Date Status Comme nts COVID 19 Moderna Unknown 09/03/2020 Administered COVID 19 Moderna Unknown 10/01/2020 Administered Fluzone Quad (6months&older) Unknown 04/05/2017 Administered xFlu shot- 6months-36 months of phs-TPIL-ZTHQ-trivalent IM Intramuscular 04/17/2012 Administered xFluzone Intradermal (18-64yrs)-trivalent ID Intradermal 04/10/2013 Administered Problems Problem Type SNOMED Code ICD Code Onset Dates Problem Status W/U Status Risk Notes Problem Eczema (06346609) eczema (692.9) Active confirmed Problem Anemia (054056601) Anemia NOS (285.9) Active confirmed Problem Insomnia (663290993) INSOMNIA NOS (780.52) Active confirmed Problem Hypoglycemia (379317485) Hypoglycemia (E16.2) Active confirmed Problem Dysthymia (66662217) Dysthymic disorder (F34.1) Active confirmed Problem Eczema (08993765) Eczema, unspecified type (L30.9) Active confirmed Problem Adjustment disorder with anxious mood (67535065) Adjustment disorder with anxious mood (F43.22) Active confirmed Problem Atopic dermatitis (89962583) Atopic dermatitis, unspecified type (L20.9) Active confirmed Vital Signs Heart Rate 85 /min 06/04/2024 Blood pressure diastolic 68 mm Hg 06/04/2024 Height 67.50 in 06/04/2024 Blood pressure systolic 104 mm Hg 06/04/2024 Weight 162.2 lbs 06/04/2024 BMI 25.03 kg/m2 06/04/2024 Encounters Encounter Location Date Provider Diagnosis [facility] [address] NGOZ[place] Sheikh [id number] 06/04/2024 Chiquis Starr Abdominal pain R10.9 ; [...] [employer] [address] [place] [address] [id number] Kristin Galindo Self - patient is the insured Medical (General) History Medical History History ICD Code Eczema, since childhood, followed by zuleima mattish Surgical History Surgery Date(Month/Year) C section 2004 Breast Biopsy x 2 12/12, 02/11 C section 2005 C section 2013 Utrerine Ablation 02/2017 Hospitalization History Reason Date(Month/Year) Child - [facility] 10/25/2003 Child - [facility] 12/03/2005 Child - [facility] 09/29/2012
--- NOTE | 2025-02-28 16:00 | US_ITS ---
PROCEDURE: US TRANSVAGINAL CLINICAL INDICATION: Abnormal bleeding COMPARISON: No exams were available for comparison FINDINGS: Transvaginal sonographic images of the pelvis were obtained. UTERUS: 7.2cm x 4.8 cmx 3.9 cm anteverted with a combined endometrial thickness of 7.5mm. There is a fluid collection at the fundus of the uterus measuring 0.9 cm x 0.7 cm. There is a collection of fluid in the lower uterine segment measuring 1.2 cm x 0.6 cm There is a scar. LEFT OVARY: 2.0cmx2.8 cmx2.4cm with a volume of 7ml. There are several small peripheral follicles. RIGHT OVARY: 2.6 cmx 3.2cmx3.6 cm with a volume of 15.4ml. There are 3 follicles in the right ovary. There is a hyperechoic, calcified area with posterior shadowing in the right ovary that measures 0.8 cm. Follicle 1. 2.0 cm Follicle 2. 1.9 cm Follicle 3. 1.0 cm. Both ovaries are seen and appear normal. Doppler flow to both ovaries are seen. There is no fluid in the cul-de-sac. IMPRESSION: 1. Anteverted uterus normal in shape and size. The patient is post ablation and there are 2 cystic areas within the uterus. The 1st area is at the fundus and measures 0.9 cm in size. The 2nd area measures 1.2 cm in size. These are likely post ablation collections of fluid/blood possibly a result of residual endometrial tissue. Would suggest follow-up in 2-3 months to see if there is any growth of these fluid collections. 2. Both ovaries are seen and appear normal. The right ovary has at least 3 follicles. The largest measures 2.0 cm. There is also a calcified area within the right ovary that measures 0.8 cm. The left ovary is seen and appears normal. 3. No fluid in the cul-de-sac. Dictated by: Charlie Wright MD 02/28/2025 17:27 Charlie Wright MD in OV 02/28/2025 17:27
--- NOTE | 2025-02-28 16:30 | MM_ITS ---
PROCEDURE INFORMATION: Exam: MG Bilateral Screening 3D Mammography Exam date and time: 02/28/2025 4:43 PM Age: 40 years old Clinical indication: Screening mammogram TECHNIQUE: Imaging protocol: Bilateral Screening tomosynthesis and 2D mammography including computer-aided detection (CAD) when performed. COMPARISON: 1. MG MM DIG SCREENING MAMM BI W/CAD 12/10/2022 9:19 AM 2. MG MM DIG MAMM DX UNILAT LT CAD 07/26/2022 1:19 PM 3. MG MM CLIP PLACEMENT LT 01/20/2022 8:47 AM 4. MG MM DIG MAMM BI DX W/CAD 12/04/2021 1:09 PM FINDINGS: MAMMOGRAPHY: Breast composition: The breast is heterogeneously dense, which may obscure small masses. The breast is heterogeneously dense, which may obscure small masses. Mass: Stable benign-appearing subcentimeter nodules are present in the right breast. Architectural distortion: No new or suspicious architectural distortion. Calcifications: No new or suspicious calcifications are present Asymmetric density: No new or suspicious asymmetric density is present Skin thickening: None. Axillary adenopathy: None. Other findings: Postoperative findings on the left, similar to 12/10/2022 IMPRESSION: No mammographic evidence of malignancy. Recommend annual screening mammography unless otherwise clinically indicated. ASSESSMENT: BI-RADS category 2: Benign.
[2025-02-28 20:26] LABS: Thyroid Stimulating Hormone 2.21 uIU/mL (0.465-4.68)
[2025-03-02 04:23] LABS: FSH 2.8 mIU/mL (.); LH 9.9 mIU/mL (.); Testosterone,Total 28 ng/dL (8-60)
== END 2025-02-28 23:59 | disposition home or self-care (01) ==
PROVIDERS: PCP Family Medicine; Visit Provider Obstetrics & Gynecology
DX: N93.9 Abnormal uterine and vaginal bleeding, unspecified (principal); E34.9 Endocrine disorder, unspecified; E53.8 Deficiency of other specified B group vitamins; L30.9 Dermatitis, unspecified; L65.9 Nonscarring hair loss, unspecified; M79.18 Myalgia, other site; N85.8 Other specified noninflammatory disorders of uterus; R63.5 Abnormal weight gain; R68.82 Decreased libido; R53.83 Other fatigue
CPT/HCPCS: 36415; 76830; 77063; 77067; 82166; 82672; 83001; 83002; 84144; 84403; 84443

== ENCOUNTER 2025-04-01 07:46 | Outpatient (CLI) | payer BC, SELFPAY ==
--- OUTSIDE RECORDS SUMMARY | 2023-10-31 07:45 | XMS_ITS ---
Author Organization Rich Address 1210 [facility] [address] [place] [phone] Care Team Providers Care Snap Shearer Name Role Phone Mario Daniels Primary Care Provider [phone] Chiquis Starr Unavailable [phone] Jasbir Garrison Unavailable [phone] Allergies Allergen (clinical drug ingredient) Drug/Non Drug [...] Location Date Provider Diagnosis Rich [address] [place] [facility] [address] [place] [phone] 10/31/2023 Jasbir Garrison Rash R21 Assessments Encounter Date Diagnosis (ICD Code) Assessment Notes Treatment Notes Treatment Clinical Notes Section Notes 10/31/2023 Rash (ICD-10 - R21) Patient to see her him assistant in 2 days Plan Of Treatment Medication [...] * Kristin DONOHUE ADOB: (40 yo F)Acc No.[id number]:10/31/2023 Progress Notes Patient: Kristin GUAMAN Provider: Hermna Garrison M.D. :1985 A ge:38 Y S ex:Female Date:10/31/2023 Address:[address] [place] [address] Pcp:Mario Daniels Subjective: * Chief Complaints: * [...] Hospitalization/Major Diagno stic Procedure: C hild - [facility] 10/25/2003, Child - [facility] 12/03/2005, Child - [facility] 09/29/2012. * Family History: F ather: [...] * Images: Billing Information: * Visit Code: 37043 Office Visit, Est Pt., Level 3. * Procedure Codes: * Electronic signature of Hedy Garrison MD on 04/01/2025 at 07:48 AM EDT Sign off status: Pending * Provider: Herman Garrison M.D. Date: 0 10/31/2023 Generated for Annette gonsalez/Jessica/Butchitting on: 0 04/01/2025 07:48 AM EDT History and Physical Notes * HPI [...]
--- OUTSIDE RECORDS SUMMARY | 2024-06-04 11:30 | XMS_ITS ---
Author Organization [facility] Address [address] [facility] [address] [id number] Care Team Providers Care Freezer Machine Operator Name Role Phone Mario Daniels Primary Care Provider Chiquis Starr Unavailable [phone] Allergies Allergen (clinical drug ingredient) Drug/Non Drug [...] 06/04/2024 Encounters Encounter Location Date Provider Diagnosis [facility] [address] [place], [place] [id number] 06/04/2024 Chiquis Starr Abdominal pain R10.9 ; [...] * Kristin DONOHUE ADOB: (40 yo F)Acc No.[id number]:06/04/2024 Progress Notes Patient: Kristin GUAMAN Provider: ANYI Chapman :1985 A ge:39 Y S ex:Female Date:06/04/2024 Address:[address] [place] [address] Pcp:Mario Daniels Subjective: * Chief Complaints: * [...] PCP; decrease in appetitie. H PI: reviewed oncology physician report from [facility] and last Cane Loader report from [facility]; neither mention diarrhea as an issue. * [...] * Procedure Codes: 9 4760 [place], [address] CAPILLARY BLOOD DRAW, 98631 CBC WITH AUTO DIFF * Follow Up: w ill notify of test results,and prn * Images: Billing Information: * Visit Code: 74387 Office Visit, Est Pt., Level 4. * Procedure Codes: [address] [place]. [address] CAPILLARY BLOOD DRAW. 42557 CBC WITH AUTO DIFF. * Electronic signature of Kaley Starr APRN on 04/01/2025 at 07:48 AM EDT Sign off status: Pending * Provider: ANYI Chapman Date: 1 08/04/2023 Generated for Annette gonsalez/Jessica/eTransmitting on: 0 04/01/2025 07:48 AM EDT History [...] Belching HPI reviewed allerg ist report from [facility] and last Cane Loader report from [facility]; neither mention diarrhea as an issue Examination [...]
--- OUTSIDE RECORDS SUMMARY | 2025-04-01 07:48 | XMS_ITS | Patient Health Record ---
Author Organization [facility] C Address [address] [place] [address] Care Team Providers Care Christian Counselor Name Role Phone Jasbir Garrison Primary Care Provider Margaret Amor [phone] Allergies No Known Allergies Reason For Referral [...] Nonsmoker Encounters Encounter Location Date Provider Diagnosis [address] [address] 12/04/2024 Margaret Palomo Abrasion foot/toe S90.819A Assessments [...] Coverage Start Date Coverage End Date [facility] [address] [place] [address] [phone] [id number] Kristin Galindo Self - patient is the insured Medical (General) History Medical History History ICD Code lupus eczema psoriasis celiac Surgical History Surgery Date(Month/Year) tubal ligation Hospitalization History Reason Date(Month/Year) see above
--- OUTSIDE RECORDS SUMMARY | 2025-04-01 07:49 | XMS_ITS | Clinical Summary ---
Author Organization [facility] Address [address] [place] [address] Care Team Providers Care Adjuster Electrical Contacts Name Role Phone Luis Daniels MD Primary Care Provider [phone] Allergies No known active allergies Medications Apremilast (Otezla) 30 MG tablet Take 1 tablet by mouth Every 12 (Twelve) Hours. 60 tablet 5 4 Active DULoxetine HCl (DRIZALMA) 30 MG capsuleIndicatio ns:Systemic lupus erythematosus, unspecified SLE type, unspecified organ [...] Active Upadacitinib ER (Rinvoq) 15 MG tablet sustained-releas e 24 hour Take 1 tablet by mouth Daily. 30 tablet 2 03/12/2025 8:47 AM EDT 5 Active Active Problems Problem Noted Date Diagnosed Date [...] or ACT mouth rinse. Xylimelts - [facility] Plenty of fluids. If no Asthma or COPD there are two prescriptions available. Evoxac or Pilocarpine. Osteoarthritis of lumbar spine 03/28/2024 Assessment & Plan (03/28/2024 1:03 PM EDT): DDD. S/p L4-5 herniation. S/p 3 surgeries. Currently seeing [facility]. No surgery recommended. Seeing [facility] for treatment of chronic [...] ANNUAL PHYSICAL 04/11/2018 HEPATITIS C SCREENING 04/11/2018 MAMMOGRAM 2025 INFLUENZA VACCINE 02/08/2025 Goals Goal Patient Goal Type Associated Problems Recent Progress Patient-Stated? Author Specialty Pharmacy General Goal General No Sun Marrero RPH Note: A reduction in BSA of skin lesions on the body. Insurance EMPLOYEE Care Teams Adjuster Electrical Contacts Relationship Specialty Start Date End Date Luis Daniels MD PCP - General Neurology 08/05/16
--- OUTSIDE RECORDS SUMMARY | 2025-04-01 07:49 | XMS_ITS ---
Author Organization [facility] Address [address] [place] [address] Care Team Providers Care Computer Game Tester Name Role Phone Luis Daniels MD Primary Care Provider Dermatology Status:Enrolled (Active) Start date:11/14/2024 Enrollment date:11/14/2024 Enrollment reason:New start at Current support & services provided:Clinical Assessment, Refill Coordination , Benefits Investigation, [facility] Dispensing Linked medications:Upadacitinib (Active) Linked problems:Atopic dermatitis (Active) Case Team Name Relationship Phone Sun Hudson Hazardous Substances Scientist Photo Retoucher Continued Care and Services Coordination
--- OUTSIDE RECORDS SUMMARY | 2025-04-01 07:49 | XMS_ITS | Patient Health Record ---
Author Organization [facility] Address [address] [id number] Care Team Providers Care Dog License Officer Supervisor Name Role Phone Mario Daniels Primary Care Provider Chiquis Starr Unavailable [phone] Allergies Allergen (clinical drug ingredient) Drug/Non Drug [...] Last Name Ro Referring Provider Speciality Family [facility] augieice Referred Provider ORLANDO BOURGEOIS Referred Provider [...] 04/10/2013 Administered xFlu shot- 6months-36 months of ufx-KJUW-XETS-trivalent IM Intramuscular 04/17/2012 Administered Fluzone Quad (6months&older) Unknown 04/05/2017 Administered COVID 19 Moderna Unknown 09/03/2020 Administered COVID 19 Moderna Unknown 10/01/2020 Administered Problems Problem Type SNOMED Code ICD Code Onset Dates Problem Status W/U Status Risk Notes Problem Eczema (56386679) eczema (692.9) Active confirmed Problem Anemia (146779365) Anemia NOS (285.9) Active confirmed Problem Insomnia (713749461) INSOMNIA NOS (780.52) Active confirmed Problem Hypoglycemia (672694770) Hypoglycemia (E16.2) Active confirmed Problem Dysthymia (87481335) Dysthymic disorder (F34.1) Active confirmed Problem Eczema (67092007) Eczema, unspecified type (L30.9) Active confirmed Problem Adjustment disorder with anxious mood (03760965) Adjustment disorder with anxious mood (F43.22) Active confirmed Problem Atopic dermatitis (90482619) Atopic dermatitis, unspecified type (L20.9) Active confirmed Vital Signs Heart Rate 85 /min 06/04/2024 Blood pressure diastolic 68 mm Hg 06/04/2024 Height 67.50 in 06/04/2024 Blood pressure systolic 104 mm Hg 06/04/2024 Weight 162.2 lbs 06/04/2024 BMI 25.03 kg/m2 06/04/2024 Encounters Encounter Location Date Provider Diagnosis [facility] [address] NGOZI Sheikh [phone] 06/04/2024 Chiquis Starr Abdominal pain R10.9 ; [...] [employer] [address] [place] [address] [id number] Kristin Galindo Self - patient is the insured Medical (General) History Medical History History ICD Code Eczema, since childhood, followed by zuleima mattish Surgical History Surgery Date(Month/Year) C section 2004 Breast Biopsy x 2 12/12, 02/11 C section 2005 C section 2013 Utrerine Ablation 02/2017 Hospitalization History Reason Date(Month/Year) Child - [facility] 10/25/2003 Child - [facility] 12/03/2005 Child - [facility] 09/29/2012
--- NOTE | 2025-04-01 08:00 | US_ITS ---
PROCEDURE: US TRANSVAGINAL CLINICAL INDICATION: Pelvic Pain, check ovarian cysts COMPARISON: US US TRANSVAGINAL from 02/28/2025 FINDINGS: Transvaginal sonographic images of the pelvis were obtained. UTERUS: 6.8 cm x 4.5cmx 3.2cm anteverted with a combined endometrial thickness of 11.9mm. Patient has had a previous endometrial ablation. There is a cystic area in the fundus of the uterus measuring 1.1 cm x 0.8 cm x 0.9 cm, similar in size to her last ultrasound. This cystic area appears to be surrounded endometrium. There is a 2nd cystic area in the lower uterine segment measuring 0.7 cm x 0.3 cm x 0.9 cm and appears smaller. LEFT OVARY: 2.9 cmx2.0cmx2.6cm with a volume of 7.8ml. There is a follicle in the left ovary measuring 1.5 cm x 1.0 cm x 1.1 cm There are several other small follicles. RIGHT OVARY: 3.5cmx 2.6 cmx2.8 cm with a volume of 13ml. There is a small hyperechoic area measuring 0.9 cm x 0.4 cm x 0.8 cm and was seen on her previous ultrasound. Likely an old corpus luteum. There are several small peripheral follicles. Both ovaries are seen and appear normal. Doppler flow to both ovaries are seen. There is a small amount of fluid in the cul-de-sac. IMPRESSION: 1. Anteverted uterus normal in shape and size. There continues to be a cystic area within the fundus of the uterus measuring 1.1 cm. There appears to the endometrium surrounding the cystic area. This is similar in size to her last ultrasound a month ago. The smaller fluid collection in the lower uterine segment has diminished in size. The endometrium is difficult to distinguish since the patient has had a previous ablation. 2. Both ovaries are seen and appear normal. The left ovary has a follicle measuring 1.5 cm. The right ovary has a small hyperechoic area that is likely an old corpus luteum. 3. There is a small amount of fluid in the cul-de-sac. Dictated by: Charlie Wright MD 04/02/2025 06:43 Charlie Wright MD in OV 04/02/2025 06:43
[2025-04-01 09:23] LABS: Hematocrit 37.7 % (37.0-47.0); Hemoglobin 12.5 g/dL (12.2-16.2); Immature Granulocytes % 0.5 %; Mean Corpuscular HGB Conc 33.2 g/dL (31.8-35.4); Mean Corpuscular Hemoglobin 31.1 pg (27.0-31.2); Mean Corpuscular Volume 93.8 fl (81-99); Nucleated Red Blood Cells % 0 %; Platelet Count 273 K/mm3 (142-424); Red Blood Count 4.02 M/mm3 (4.20-5.40); Red Cell Distribution Width-SD 45.2 fL; White Blood Count 4.3 K/mm3 (4.8-10.8)
[2025-04-01 10:08] LABS: Albumin Level 4.3 g/dl (3.5-5.0); Chloride 102 mmol/L (98-107); Sodium 138 mmol/L (136-145)
[2025-04-01 10:09] LABS: Potassium 4.4 mmoL/L (3.5-5.1)
[2025-04-01 10:11] LABS: 25-OH Vitamin D, Total 38.1 ng/mL (30-100); Alanine Aminotransferase 29 U/L (12-78); Albumin/Globulin Ratio 1.8 (1.1-1.8); Alkaline Phosphatase 45 U/L (38-126); Anion Gap 12.4 mEq/L (5-15); Aspartate Amino Transferase 37 U/L (14-36); Bilirubin,Total 0.3 mg/dl (0.2-1.3); Blood Urea Nitrogen 11 mg/dl (7-17); Carbon Dioxide 28 mmol/L (22.0-30.0); Creatinine,Serum 0.60 mg/dl (0.52-1.04); Estimated Glomerular Filt Rate 111 ml/min (>60); GFR (African American) 134 ML/MIN (>60); Globulin 2.4 g/dL (1.3-3.2); Total Protein,Serum 6.7 g/dl (6.3-8.2); Triglycerides 73 mg/dl (30-150)
[2025-04-01 10:12] LABS: Calcium 9.3 mg/dl (8.4-10.2); Cholesterol 156 mg/dl (140-200); Glucose 91 mg/dl (74-100); HDL Cholesterol 82 mg/dl (40-60); Iron 95 ug/dL (37-170); Magnesium 1.9 mg/dl (1.6-2.3)
[2025-04-01 10:22] LABS: Total Iron Binding Capacity 368 ug/dL (265-497)
[2025-04-01 10:26] LABS: Free T4 (Free Thyroxine) 0.81 ng/dl (0.78-2.19)
[2025-04-01 10:42] LABS: Hemoglobin A1C 4.8 % (4.0-6.0); Thyroid Stimulating Hormone 2.54 uIU/mL (0.465-4.68)
[2025-04-01 10:46] LABS: Ferritin 28.9 ng/ml (6.24-137)
[2025-04-01 11:04] LABS: C-Reactive Protein < 0.3 mg/L (0-4); Folate 4.28 ng/mL
[2025-04-01 11:48] LABS: Vitamin B12 924 pg/mL (239-931)
== END 2025-04-01 23:59 | disposition home or self-care (01) ==
PROVIDERS: Nurse Practitioner Psychiatric/Mental Health; PCP Family Medicine; Visit Provider Obstetrics & Gynecology
DX: N85.4 Malposition of uterus (principal); N85.8 Other specified noninflammatory disorders of uterus; N83.02 Follicular cyst of left ovary; N93.9 Abnormal uterine and vaginal bleeding, unspecified; R93.89 Abnormal findings on diagnostic imaging of other specified body structures; F43.10 Post-traumatic stress disorder, unspecified; F33.1 Major depressive disorder, recurrent, moderate; F41.1 Generalized anxiety disorder; R10.2 Pelvic and perineal pain; Z98.890 Other specified postprocedural states
CPT/HCPCS: 36415; 76830; 80053; 80061; 82306; 82607; 82728; 82746; 83036; 83090; 83540; 83550; 83735; 84207; 84439; 84443; 84480; 85025; 85651; 86140

== ENCOUNTER 2025-04-08 12:55 | Day surgery (SDC) | payer BC, SELFPAY ==
--- NOTE | 2025-04-05 08:39 | EXP.HP ---
History of Present Illness *Admission Date: 04/08/25 *History of present illness: Mrs. Galindo is a 40-year-old female who is here for diagnostic upper endoscopy. She has had diarrhea, gassiness, bloating and some lower abdominal discomfort. She does get bowel urgency and frequency. Her celiac testing was very strongly positive for celiac serologies. The patient has begun a gluten-free diet. Despite the gluten-free diet, she continues to have diarrhea predominant symptoms with some alternating constipation. She is most annoyed with the bowel urgency, frequency and loose stools and this can interfere with her quality of life. She did try psyllium Konsyl for about a week. This caused more bloating. The patient is anxious about her symptoms. Her EGD with me had shown biopsy changes with villous blunting and intramucosal lymphocytes consistent with celiac disease. Her colonoscopy showed a single benign polyp (inflammatory polyp) which was removed. The patient does feel that stress may play a role. She does believe that she is gluten-free but she has not seen a dietitian just yet. She reports no significant abdominal pain. She had been on Otezla which was discontinued. She is now on Rinvoq. The patient did try a broad iprn-mds-mkrfbqm digestive enzyme (NOW Super Enzyme?at [facility]) and this is not helping. [facility] Disclaimer: The information contained in this section may have been updated after the patient was seen, as this information can be updated by other users. Medical History Breast cancer screening by mammogram Post endometrial ablation syndrome Abnormal uterine bleeding (AUB) Decreased libido Hormonal disorder Unexplained weight gain Encounter for routine gynecological examination Psoriasis Eczema Irritable bowel syndrome (IBS) History of anemia Surgical History H/O tubal ligation History of endometrial ablation History of section History of breast biopsy multiple Family History Other Family history of Crohn's disease Family history of lupus Social History Smoking Status: Former smoker tobacco type: cigarettes packs per day: 1 and e-cigarettes second hand exposure: Yes alcohol intake: current alcohol intake frequency: holidays/special occasions only substance use type: denies use current occupational status: employed Travel in the last 8 weeks?: None household members: family current occupational exposures/hazards: No caffeine: Yes Have you lived/traveled outside US in past 30 days?: No Contact w/someone who lives/traveled outside US past 30 days?: No Exposure to someone with infectious disease in past 14 days?: No Do you have a fever (greater than 100.4 F or 38 C)?: No Have you tested positive for COVID-19?: No Exposed to someone with COVID-19 in past 14 days?: No Do you have a sore throat?: No Do you have a cough?: No Do you have any weakness?: No Do you have any diarrhea?: No Are you experiencing any unusual bleeding?: No Do you have any muscle aches/pain?: No Do you have any abdominal pain?: No Are you experiencing loss of taste or smell?: No Other Medical History Have you received the Flu Vaccine for this season: Yes Have you received the Pneumonia Vaccine: No Review of Systems Review of Systems Review of systems (narrative): Negative *Cardiovascular Comments: Negative *Gastrointestinal Comments: Negative *Genitourinary Comments: Negative *Musculoskeletal Comments: Negative *Neurologic Comments: Negative Meds Home Medications and Allergies Home Medications ?Medication ?Instructions ?Recorded ?Confirmed ?Type upadacitinib 15 mg tablet,extended 15 mg PO DAILY 02/21/25 04/05/25 History release 24 hr (Rinvoq) Pancreat-Bet OHg-oto-jxll-pap 250 1 cap PO NEEDED PRN Abdominal 02/26/25 04/05/25 History mg-162 mg-65 mg-125 mg capsule Discomfort (Super Enzyme) psyllium husk 0.52 gram capsule 0.52 g PO DAILY 02/26/25 04/05/25 History (Fiber (psyllium husk)) alosetron 1 mg tablet (Lotronex) 1 mg PO NEEDED PRN Abdominal 04/05/25 History Pain buspirone 5 mg tablet 5 mg PO BID 04/05/25 04/05/25 History New Prescriptions to Start Prescriptions: Allergies Allergy/AdvReac Type Severity Reaction Status Date / Time No Known Allergies Allergy Verified 03/21/25 13:13 Exam *Routine HEENT Exam Head: Present normocephalic Eye: Present EOMI and PERRL ENT: Present mucous membranes moist *Routine Neck Exam Neck: Present supple *Routine Respiratory Exam Respiratory: Present CTA bilaterally *Routine Cardiovascular Exam Cardiovascular: Present RRR *Routine Abdominal Exam Abdominal: Present soft and normoactive bowel sounds; Absent tenderness *Routine Rectal Exam Rectal:: deferred *Routine Genitalia Exam Genitalia:: deferred *Routine Extremities Exam Extremities: Absent cyanosis, clubbing or edema *Routine Skin Exam Skin: Present warm; Absent rash *Routine Neurological Exam Neurological: Present alert and oriented X3 Assessment and Plan *Assessment and plan (1) Celiac disease: Status: Acute Category: Medical Code(s): K90.0 - Celiac disease (2) Bloating: Status: Acute Category: Medical Code(s): R14.0 - Abdominal distension (gaseous) (3) Diarrhea: Status: Acute Category: Medical Code(s): R19.7 - Diarrhea, unspecified Plan A/P: 1. Celiac disease with intractable bloating and diarrhea is the preprocedural diagnosis. The patient will be anesthetized/sedated using MAC sedation. The patient has been seen and examined. Cardiac and lung assessment prior to the examination is stable. Proceed with planned diagnostic EGD.
[2025-04-05 10:09] VITALS: BMI 27.5
--- NOTE | 2025-04-08 07:12 | P.PCN_ITS ---
[facility] Procedure Note Date: 04/08/25 Time: 14:43 Procedure Note:: Upper Endoscopy Procedure Report: Esophagogastroduodenoscopy with cold biopsies Endoscopost: Herrera Bourgeois II, MD Referring Physician: Jasbir Garrison MD Date of Procedure: April 08, 2025 Equipment: Olympus GIF-1100 standard upper endoscope Sedation: MAC sedation Indications: Mrs. Galindo is a 40-year-old female who is here for diagnostic upper endoscopy. She has had diarrhea, gassiness, bloating and some lower abdominal discomfort. She does get bowel urgency and frequency. Her celiac testing was very strongly positive for celiac serologies. The patient has begun a gluten-free diet. Despite the gluten-free diet, she continues to have diarrhea predominant symptoms with some alternating constipation. She is most annoyed with the bowel urgency, frequency and loose stools and this can interfere with her quality of life. She did try psyllium Konsyl for about a week. This caused more bloating. The patient is anxious about her symptoms. Her EGD with mi on 09/10/2024 had shown biopsy changes with villous blunting and intramucosal lymphocytes consistent with celiac disease. Her colonoscopy showed a single benign polyp (inflammatory polyp) which was removed. The patient does feel that stress may play a role. She does believe that she is gluten-free but she has not seen a dietitian just yet. She reports no significant abdominal pain. She had been on Otezla which was discontinued. She is now on Rinvoq. The patient did try a broad rayd-wuw-zffdzet digestive enzyme (NOW Super Enzyme?at [facility]) and this was not helping. Procedure: Prior to the procedure, a history and physical exam was performed, and patient's medications and allergies were reviewed. The risks, benefits and alternatives of the sedation and procedure were discussed with the patient. All questions were answered and informed consent was obtained. The patient was brought to the procedure room. Patient identification and proposed procedure were verified by the physician and the nurse. The patient was placed in a left lateral decubitus position and the scope was passed under direct vision. Throughout the procedure, the patient's blood pressure, pulse, and oxygen saturations were monitored continuously. The upper GI endoscopy was accomplished without difficulty. The patient tolerated the procedure well. Findings: The scope was passed directly into the upper esophagus and advanced to the third portion of the duodenum. A cold biopsy was taken from the second portion of the duodenum for the disaccharidase assay. There was mucosal nodularity in the duodenal bulb and first portion with scalloping of the conniventes consistent with active celiac disease. Cold biopsies were taken from the duodenal bulb and first portion. The scope was withdrawn through a normal duodenal bulb and patulous pylorus into the stomach. There was some linear reactive gastropathy of the antrum. The body and fundus of the stomach were normal. Upon retroflexion there was no hiatal hernia. The scope was then withdrawn into the esophagus. There was no evidence of reflux esophagitis or Turcios's. The remainder of the esophageal mucosa was normal. Impression: 1. Proximal duodenal nodularity/mucosal scalloping of conniventes consistent with active celiac disease Plan: Given the fact that she continues to have mucosal changes consistent with celiac disease, I am not convinced that she is truly gluten-free and I will follow-up the biopsy histology. I will also obtain tissue transglutaminase IgA for monitoring as well. I will check the disaccharidase assay.
[2025-04-08 13:36] VITALS: BP 109/74; PULSE 71; RESP 18; TEMP 36.6; O2SAT 100
[2025-04-08 13:42] LABS: Urine Pregnancy, HCG Qual. Negative (Negative)
--- NOTE | 2025-04-08 13:58 | EXP.ANES.CKL ---
[facility] Disclaimer: The information contained in this section may have been updated after the patient was seen, as this information can be updated by other users. Medical History Breast cancer screening by mammogram Post endometrial ablation syndrome Abnormal uterine bleeding (AUB) Decreased libido Hormonal disorder Unexplained weight gain Encounter for routine gynecological examination Psoriasis Eczema Irritable bowel syndrome (IBS) History of anemia Surgical History H/O tubal ligation History of endometrial ablation History of section History of breast biopsy multiple Family History Other Family history of Crohn's disease Family history of lupus Social History Smoking Status: Former smoker tobacco type: cigarettes packs per day: 1 and e-cigarettes second hand exposure: Yes alcohol intake: current alcohol intake frequency: holidays/special occasions only substance use type: denies use current occupational status: employed Travel in the last 8 weeks?: None household members: family current occupational exposures/hazards: No caffeine: Yes Have you lived/traveled outside US in past 30 days?: No Contact w/someone who lives/traveled outside US past 30 days?: No Exposure to someone with infectious disease in past 14 days?: No Do you have a fever (greater than 100.4 F or 38 C)?: No Have you tested positive for COVID-19?: No Exposed to someone with COVID-19 in past 14 days?: No Do you have a sore throat?: No Do you have a cough?: No Do you have any weakness?: No Do you have any diarrhea?: No Are you experiencing any unusual bleeding?: No Do you have any muscle aches/pain?: No Do you have any abdominal pain?: No Are you experiencing loss of taste or smell?: No [facility] Anesthesia Checklist Patient Identification Patient Identification: Arm Band and Family Structural Data Admitted From: Home Planned Operative Procedure/s: EGD Consent for Planned Operative Procedure(s) Verified: Yes Verified Documents: Surgical Consent and History and Physical NPO Status Verified Time NPO: 00:00 Additional verifications Patient : No Anesthesia Reactions: No Hx Blood Transfusions: No Blood Transfusion Reaction: No Cephalosporin Allergy: No Previous Colonoscopy: Yes Airway Assessment Mallampati Score:: Class II C-Spine Mobility Assessed: Yes TMJ Mobility Assessed: Yes Dentition: Good Dentition Neurological Assessment Level of Consciousness: Awake, Alert, Appropriate and Follows Commands Hx Seizures: No Numbness or tingling in extremities: No Anesthesia Plan Anesthesia Risk discussed: Yes ASA Class: II Anesthesia Type: MAC Preoperative Comments Pre-Operative Comments: Celiac Dz. Lower abdominal Pain.
[2025-04-08 14:45] VITALS: BP 120/80; PULSE 70; RESP 18; TEMP 36.2; O2SAT 100
[2025-04-08 14:55] VITALS: BP 104/61; PULSE 65; RESP 16; O2SAT 100
[2025-04-08 15:05] VITALS: BP 128/87; PULSE 66; RESP 16; O2SAT 100
[2025-04-10 18:10] LABS: Interpretation Notes (.); Lactase 11.05 (>/= 14.0); Maltase 146.46 (>/= 110.0); Palatinase 8.29 (>/= 8.5); Reference Notes (.); Sucrase 56.37 (>/= 25.0)
== END 2025-04-08 15:15 | disposition home or self-care (01) ==
PROVIDERS: PCP Family Medicine; Visit Provider Internal Medicine Gastroenterology
PROC: 0DJ08ZZ Inspection of Upper Intestinal Tract, Via Natural or Artificial Opening Endoscopic (ICD-10-PCS; CPT 43239; principal; 2025-04-08 15:00)
DX: K90.0 Celiac disease (principal); K31.89 Other diseases of stomach and duodenum; Z87.891 Personal history of nicotine dependence; Z86.0101 Personal history of adenomatous and serrated colon polyps
CPT/HCPCS: 43239; 81025; 82657; J2003; J2704

== ENCOUNTER 2025-05-31 16:42 | Outpatient (CLI) | payer BC, SELFPAY ==
--- OUTSIDE RECORDS SUMMARY | 2024-06-04 10:30 | XMS_ITS ---
Author Organization [facility] [place] Address 1210 [facility] [address] [phone] Care Team Providers Care Suspect Artist Supervisor Name Role Phone Mario Daniels Primary Care Provider [phone] Chiquis Starr Unavailable [phone] Allergies Allergen (clinical drug ingredient) Drug/Non Drug [...] AM Interpretation: Performing Lab: Notes/Report: Diarrhea Panel ([facility]) Reviewed date:06/11/2024 09:14:55 AM Interpretation: Performing Lab: [...] 06/04/2024 Encounters Encounter Location Date Provider Diagnosis [facility] [address] [place], [place] [phone] 06/04/2024 Chiquis Starr Abdominal pain R10.9 ; [...] * Kristin DONOHUE ADOB: (40 yo F)Acc No.[id number]:06/04/2024 Progress Notes Patient: Kristin GUAMAN Provider: ANYI Chapman :1985 A ge:39 Y S ex:Female Date:06/04/2024 Address:[address] [place] [address] Pcp:Mario Daniels Subjective: * Chief Complaints: * [...] PCP; decrease in appetitie. H PI: reviewed verification engineer report from [facility] and last Lithopone Charger report from [facility]; neither mention diarrhea as an issue. * [...] Hospitalization/Major Diagno stic Procedure: C hild - [facility] 10/25/2003, Child - [facility] 12/03/2005, Child - [facility] 09/29/2012. * Family History: F ather: alive, [...] * Procedure Codes: 9 4760 [place], [address] CAPILLARY BLOOD DRAW, 62660 CBC WITH AUTO DIFF * Follow Up: w ill notify of test results,and prn * Images: Billing Information: * Visit Code: 04595 Office Visit, Est Pt., Level 4. * Procedure Codes: [address] [place]. [address] CAPILLARY BLOOD DRAW. 76246 CBC WITH AUTO DIFF. * Electronic signature of Kaleythuy Starr APRN on 05/31/2025 at 04:45 PM EST Sign off status: Pending * Provider: ANYI Chapman Date: 08/04/2023 Generated for Annette gonsalez/Jessica/eTziasmitting on: 07/31/2024 04:45 PM EST History and Physical Notes * [...] ist report from [facility] and last Lithopone Charger report from [facility]; neither mention diarrhea as an issue Examination [...]
--- OUTSIDE RECORDS SUMMARY | 2025-05-31 16:45 | XMS_ITS | Continuity of Care Document ---
Author Organization [facility] Horace leiva RABIA PANTHER BURN Address [address] [place] [address] Care Team Providers Care Balance Wheel Hand Filer Name Role Phone SHAHEEN GARCIA Technical Sales Specialist SIVAKUMAR GALICIA Primary Care Provider Assessment Encounter Date Assessment Date Assessment LastModified by Organization Details LastModified Time 05/07/2025 05/07/2025 [id number] add-on code: I am providing ongoing care for a single, serious condition or a complex condition that requires ongoing longitudinal care and requires the direction of a practitioner with specialized clinical knowledge, skill, and experience: on ELGIN inhibitor [email or web address] Not available 05/07/2025 16:30:11 Plan of Treatment Reminders Order Date Submit Date Provider Last Modified By Organization Details Last Modified Time Details Appointments DERM WORK-IN PROVIDER APPROVED 2025 10:10A M SHAHEEN TRAMMELL MD Not available Not available Not available Lab CBC w/ diff [address] Location, [address] [place] [address], [address], 05/29/2025 10:10:53 AST/SGOT (aspartat e aminotran sferase), serum or plasma [address] Location, [address] [place], [address], 05/29/2025 10:10:53 ALT (alanine aminotran sferase), serum or plasma [address] Location, [address] [place], [address], 05/29/2025 10:10:53 lipid panel, serum [address] Location, [address] [place], [address], 05/29/2025 10:10:54 Referral None recorded. Procedures None recorded. Surgeries None recorded. Imaging None recorded. Medication Orders None recorded. Patient TargetsNo targets recorded. Patient Instructions Encounter Date Encounter Id Patient Instructions Last Modified By Organization Details Last Modified Time 05/07/2025 [id number] Recommended returning to clinic in 3 months for f/u [email or web address] Not available 05/07/2025 16:28:31 Reason for Referral None Reported. Medical Equipment [...] Not Available Not Available Not Available Claritin 05/07 completed Not Available Not Available Not Available buspirone active Not Available Not Jana ilable Not Available Sprintec (28) active Not Available Not Available Not Available Otezla 30 mg tablet one po bid 12/12 completed Not Available Not Available Not Available Motegrity active Not Available Not Jana ilable Not Available Rinvoq 15 mg tablet,extend ed release Take 1 tablet by mouth Daily. 2024 active Not Available Not Available Not Avai lable Vitals None Recorded Social History Question Answer Notes LastModified by Organizat ion Details LastModified Time Tobacco Smoking Status Never Smoker Saba [facility] 11/02/2023 11:41:08 Sunscreen Use? Yes [email or web address] Informatio n not available 12/12/2024 Tanning Bed Use No [email or web address] Informati on not available 12/12/2024 What Was The Date Of Your Most Recent Tobacco Screening? 05/22/2024 Information not available 05/22/2024 Sex: Female Functional Status Question Answer Note LastModified by Organizat ion Details LastModified Time Do you or have you ever used any other forms of tobacco or nicotine? No Information not available 05/22/2024 What is your [...] Stones N Blood Transfusion N Emphysema N COPD N Depression N Pneumonia N Venereal Disease N Seasonal Allergies Y Anxiety Disorder N Arthritis Y Previous injury to face N Blood Clot N Cancer N Stroke N Neurologic Disorder N Headaches N Kidney Disease N Heart Problems N Hospitalizations N Migraines N Meningitis N Ulcers N Other Skin Condition Y Rhinitis N Rheumatic Fever N Bleeding Disorder N Tuberculosis N AIDS/HIV N Nasal polyps Y Asthma N GERD/Reflux N Chicken Pox Y Hernia N Glaucoma N Nasal or Sinus Problems Y Measles N Genitourinary Disease N Hearing Loss N Radiation Therapy N High Cholesterol N Liver Disease N Panic Disorder N Allergies/Hayfever Y Mumps N Thyroid Problems N GI Problems Y Heart Attack ([place]) N Psychiatric Illness N Diabetes N Hyperlipidemia N Hepatitis B N Rubella N Epilepsy/Seizures N Hypertension N Osteoporosis N Gynecological HistoryNo gynecological history recorded. Obstetrics History GPAL:G 0 P 0 0 0 0 Past Encounters Encounter ID Performer Location Encounter Start Date Encounter Closed Date Diagnosis/Indication Diagnosis SNOMED-CT Code Diagnosis ICD10 Code Diagnosis IMO Codes Diagnosis Note [id number] SHAHEEN TRAMMELL MD [address] [address] 05/07/2025 15:26:12 05/07/2025 16:32:46 Atopic dermatitis 00938458 L20.89 L40.0 L40.50 Z79.69 See 10/2022 note for full history Doing great on Rinvoq. Started noticing improvemen t in 3 days. May have DH component due to new celiac dx and reported R knee rash (flares intermitte ntly, not present today). BSA: 0% (decreased from 4% since starting Rinvoq) She stopped CellCept (as prescribed by [facility]) 09/2024She is getting labs done routinely through [facility] ruled out lupus, DAVID-Was on Otezla from 11/2023-09/09 025. No chage after stopping. Her last steroid taper was in November 2022 She has tried tanning bed in the past and it has helped. I had hesitated previously to do nbUVB because pt had originally said she had lupus, but pt has had numerous workups for lupus w/ +DAVID; rheum has said it is not lupus Pt reports that she now is d/w celiac disease. Seeing GI. q1yr colonoscop ies+ endomysial IgA antibodies 1:40+ Reticulin IgA antibodyTT G IgG elevated at 55TTG IgA >100Gliadi n IgG & IgA >150 Rec gluten free diet and f/u with GI. Pt has been on gluten free diet since 08/2024. She is still experienci ng rash flares of the eczema. Pt has stopped heliocare, calcium, vit d, claritin, zyrtec, L-histidin e as they aren't needed anymore She stopped Otezla and Cellcept around 09/2024She is no longer seeing [facility] Will plan to continue ELGIN inhibitor, specifical ly Rinvoq - she stopped smoking in 2021. Plan:Walter nue all free & clear detergentP t has fluocinoni de 0.05% ointment to use twice a day to hands for up to two weeks, take one week break, repeat as neededCont inue Rinvoq --------Ma y consider opzelura as well.May consider hand foot unit if not improved Pt will call when knee is flaring and we will get in to see her shu for bx to r/o DH Long-term current use of drug therapy [id number] Z79.899 Z32.02 L20.89 L40.0 L40.50 [id number] Rinvoqis a ELGIN inhibitor oral medication that is used to treat atopic dermatitis and rheumatoid arthritis. Warnings include, but are not limited to, serious infection, increased risk of (in those 50 and older with at least 1 heart disease risk factor), major cardiovasc ular events like [place] and CVA, cancers (especiall y if a [...] dered 09/2024 and pt had drawn at [facility]. We did not receive results; labs shown on pts phone today (photos in today's chart). Received some labs/not all. Hepatitis panel - negQTB-Gol d - negHIV1/2 - negCMP, Lipid panel, and CBC w/ Diff. WNL 11/09/24 4 weeks:CBC with diff, LFTsWNL 12/12/2024WB C slightly low at 4.0 12 weeks:CBC with diff, LFTs, and lipid panel.WNL 03/01/25 Then every 3-4 months thereafter :CBC with diff, LFTs, and lipid panel - ordered 05/07/25 Yearly QuantiFERO N Gold 2 sample bottles of Rinvoq given 10/28/24 to last 28 days. Pt was approved for Rinvoq and has received Rx. Pt will call in 1-2 weeks if they have not heard regarding labsWill refill Rinvoq 15 mg qday, Disp 30, 2R pending labs (See above for dosing) Health Concerns Section Related Observation LastModified by Organization Nimesh LastModified Time None Recorded Concern Status LastModified by Organization Details LastModified Time None Recorded Payers Encounter Date Sequence Insurance Name Policy Number Policy Parsons Covered Member ID Parsons Member ID Guarantor Name 05/07/2025 1 [employer] [id number] Kristin Pason [id number] Kristin Galindo Notes Date Note Type Note Provider Name and Address Organization Details Recorded Time 05/07/2025 text/html Pt is here for atopic derm f/u - Location: [place]- Duration: 3 mo f/u- Previous Tx: Cellcept, heliocare, calcium, vitamin D- Current Treatments: Rinvoq- Reports: noticed a few dry spots but thinks it could be related to colder weather. Otherwise doing well. SHAHEEN TRAMMELL MD [address] [place] [address], [phone], [facility] 05/07/2025 16:43:17 OBGyn Episode No OBEpisode recorded.
--- OUTSIDE RECORDS SUMMARY | 2025-05-31 16:46 | XMS_ITS | Patient Health Record ---
Author Organization [facility] Address [address] [id number] Care Team Providers Care Assignment Desk Editor Name Role Phone Mario Daniels Primary Care Provider [phone] Chiquis Starr Unavailable [phone] Allergies Allergen (clinical drug ingredient) Drug/Non Drug [...] Last Name Ro Referring Provider Speciality [facility] augieice Referred Provider ORLANDO BOURGEOIS Referred Provider [...] 04/10/2013 Administered xFlu shot- 6months-36 months of lay-NBMZ-VIRO-trivalent IM Intramuscular 04/17/2012 Administered Fluzone Quad (6months&older) Unknown 04/05/2017 Administered COVID 19 Moderna Unknown 09/03/2020 Administered COVID 19 Moderna Unknown 10/01/2020 Administered Problems Problem Type SNOMED Code ICD Code Onset Dates Problem Status W/U Status Risk Notes Problem Eczema (29011863) eczema (692.9) Active confirmed Problem Anemia (092189692) Anemia NOS (285.9) Active confirmed Problem Insomnia (074122123) INSOMNIA NOS (780.52) Active confirmed Problem Hypoglycemia (337173081) Hypoglycemia (E16.2) Active confirmed Problem Dysthymia (53718492) Dysthymic disorder (F34.1) Active confirmed Problem Eczema (05074166) Eczema, unspecified type (L30.9) Active confirmed Problem Adjustment disorder with anxious mood (40204773) Adjustment disorder with anxious mood (F43.22) Active confirmed Problem Atopic dermatitis (15477496) Atopic dermatitis, unspecified type (L20.9) Active confirmed Vital Signs Heart Rate 85 /min 06/04/2024 Blood pressure diastolic 68 mm Hg 06/04/2024 Height 67.50 in 06/04/2024 Blood pressure systolic 104 mm Hg 06/04/2024 Weight 162.2 lbs 06/04/2024 BMI 25.03 kg/m2 06/04/2024 Encounters Encounter Location Date Provider Diagnosis [facility] [address] NGOZI Sheikh [id number] 06/04/2024 Chiquis Starr Abdominal pain R10.9 ; [...] [employer] [address] [place] [address] [id number] Kristin Galindo Self - patient is the insured Medical (General) History Medical History History ICD Code Eczema, since childhood, followed by zuleima mattish Surgical History Surgery Date(Month/Year) C section 2004 Breast Biopsy x 2 12/12, 02/11 C section 2005 C section 2013 Utrerine Ablation 02/2017 Hospitalization History Reason Date(Month/Year) Child - [facility] 10/25/2003 Child - [facility] 12/03/2005 Child - [facility] 09/29/2012
--- OUTSIDE RECORDS SUMMARY | 2025-05-31 16:46 | XMS_ITS | Data Portability ---
Author Organization [facility], C[facility] MEDINA CLOSED Address [address] [address] [place] [address] Care Team Providers Care Locomotive Mechanic Apprentice Name Role Phone SHAHEEN GARCIA Apprentice Pattern Maker SIVAKUMAR GALICIA Primary Care Provider Assessment Encounter Date Assessment Date Assessment LastModified by Organization Details LastModified Time 05/07/2025 05/07/2025 [id number] add-on code: I am providing ongoing care for a single, serious condition or a complex condition that requires ongoing longitudinal care and requires the direction of a practitioner with specialized clinical knowledge, skill, and experience: on ELGIN inhibitor [email or web address] Not available 05/07/2025 16:30:11 Plan of Treatment Reminders Order Date Submit Date Provider Last Modified By Organization Details Last Modified Time Details Appointments DERM WORK-IN PROVIDER APPROVED 2025 10:10A M SHAHEEN TRAMMELL MD Not available Not available Not available Lab CBC w/ diff [address] Location, [address] [place] [address], [address], 05/29/2025 10:10:53 AST/SGOT (aspartat e aminotran sferase), serum or plasma [address] Location, [address] [place] [address], [address], 05/29/2025 10:10:53 ALT (alanine aminotran sferase), serum or plasma [address] Location, [address] [place], [address], 05/29/2025 10:10:53 lipid panel, serum [address] Location, [address] [place], [address], 05/29/2025 10:10:54 CBC w/ auto diff 2024 025 [email or web address] [facility], [address], [place], [address], 02/05/2025 17:17:44 AST/SGOT (aspartat e aminotran sferase), serum or plasma 2024 025 [email or web address] [facility], [address], [place], [address], 02/05/2025 17:17:44 ALT (alanine aminotran sferase), serum or plasma 2024 025 [email or web address] [facility], [address], [address], [place], [address], 02/05/2025 17:17:44 lipid panel, serum 2024 025 ALO [facility], [address], [address], [place], [address], 02/09/2025 13:24:31 CBC w/ auto diff 2024 025 ALO [facility], [address], [address], [place], [address], 01/08/2025 11:00:38 AST/SGOT (aspartat e aminotran sferase), serum or plasma 2024 025 [email or web address] 3 [facility], [address], [address], [place], [address], 01/14/2025 16:09:26 ALT (alanine aminotran sferase), serum or plasma 2024 025 [email or web address] 3 [facility], [address], [address], [place], [address], 01/14/2025 16:09:26 test, urine 2024 025 [email or web address] [address] [facility], [address] [place] [address], [place], [address], 11/07/2024 19:46:10 CBC w/ auto diff 2024 025 [email or web address] 3 [facility], [address], [address], [place], [address], 11/22/2024 17:00:39 CMP, serum or plasma 2024 025 ALO [facility], [address], [address], [place], [address], 11/09/2024 14:04:35 lipid panel, serum 2024 025 [email or web address] 3 [facility], [address], [address], [place], [address], 11/22/2024 17:00:27 CBC w/ auto diff 2024 025 ALO [facility], [address], [address], [place], [address], 11/09/2024 13:25:59 CMP, serum or plasma 2024 025 [email or web address] 3 [facility], [address], [address], [place], [address], 11/21/2024 13:35:58 lipid panel, serum 2024 025 [email or web address] 3 [facility], [address], [address], [place], [address], 11/21/2024 13:36:48 HIV 1 + 2 RNA panel, HERMES+probe , serum or plasma 2024 025 [email or web address] [facility], [address], [address], [place], [address], 11/21/2024 14:35:49 hepatitis panel (A+B+C), acute, serum 2024 025 [facility], [address], [address], [place], [address], 11/21/2024 14:35:49 Mycobacte rium tuberculo sis stimulate d gamma interfero n, qual, blood 2024 025 [email or web address] [facility], [address], [address], [place], [address], 11/21/2024 14:35:50 Referral None recorded. Procedures None recorded. Surgeries None recorded. Imaging None recorded. Medication Orders fluocinon iron 0.05 % topical ointment 2024 025 [facility] [address] [facility], [place], [address], 12/12/2024 15:13:02 Patient TargetsNo targets recorded. Patient Instructions Encounter Date Encounter Id Patient Instructions Last Modified By Organization Details Last Modified Time 09/25/2024 [id number] Will see back in 1 month as scheduled [email or web address] Not available 09/25/2024 09:05:38 12/12/2024 [id number] Follow up as scheduled [email or web address] Not available 12/12/2024 15:19:57 02/05/2025 [id number] Recommended returning to clinic in 3 months for fu as scheduled Not available 02/05/2025 16:57:38 05/07/2025 [id number] Recommended returning to clinic in 3 months for f/u [email or web address] Not available 05/07/2025 16:28:31 Reason for Referral None Reported. Results Created Date Observation Date Name Description Value Unit Range Abnormal Flag Note LastModifiedBy Organization Detail LastModifiedTime 11/08/1911/07/2024 pregn sony test, urine HCG negati ve Not Available [facility] [address] [place], [address], 11/07/2024 15:37:21 11/08/19 25 11/07/2024 pregn sony test, urine Specific [email or web address] Not Available [facility] [address] [place], [address], 11/07/2024 15:37:21 Result Notes None recorded. Medical [...] Avai lable Vitals Date Recorded Body height Provider Name an d Address Organization Details Last Updated DateTime 12/12/2024 170.18 cm Otilia De Luna [facility] 12/12/2024 15:02:15 Social History Question Answer Notes LastModified by Organizat Journeys Details LastModified Time Tobacco Smoking Status [facility]oker [facility] 11/02/2023 11:41:08 Sunscreen Use? Yes [email or web address] Informatio n not available 12/12/2024 Tanning Bed Use No [email or web address] Informati on not available 12/12/2024 What Was The Date Of Your Most Recent Tobacco Screening? 05/22/2024 [email or web address] Information not available 05/22/2024 Sex: Female Functional Status Question Answer Note LastModified by Organ[employer]at Jour[employer] Details LastModified Time Do you or have you ever used any other forms of tobacco or nicotine? No [email or web address] Information not available 05/22/2024 What is your [...] GI Problems Y Meningitis N Heart Attack ([place]) N Ulcers N Other Skin Condition Y [...] ICD10 Code Diagnosis IMO Codes Diagnosis Note [id number] SHAHEEN TRAMMELL MD [address] [address] [place] [address] 11/02/2023 11:17:30 11/03/2023 04:25:24 Atopic dermatitis 31681032 L20.89 L40.0 L40.50 Z79.69 See 10/2022 note [...] Otezla given today Gave informatio n for [facility] for f/u if not heard regarding rx May consider hand foot unit if not improvedMa y consider ELGIN inhibitor - she stopped smoking in 2021 [id number] SHAHEEN TRAMMELL MD [address] [place] [address] 05/22/2024 07:46:17 05/22/2024 09:00:22 Atopic dermatitis 16608191 L20.89 L40.0 L40.50 Z79.69 See 10/2022 note [...] neededCont inue Otezla qd Will refer to sfdc consultant for full panel food & environmen rajiv allergy testing due to flares with certain foods. She mentioned pineapple as one. No h/o asthma. May consider hand foot unit if not improvedMa y consider ELGIN inhibitor - she stopped smoking in 2021 Cont current course of Cellcept, Otezla, and TAC for now. [id number] HARISH GARCIA MD [facility] [address] [facility] ,[address] [place] [address] 05/25/2024 07:06:01 05/26/2024 04:08:23 Adverse reaction to food 079629534 T78.1XXA negative food allergy testing discussed food eliminatio n and reintroduc tion strategy Adverse re action to drug 00028275 T50.905A She is on claritin in AM, zyrtec in PM and benadryl 50 mg at nightdiscu ssed side effect of high dose antihistam ine including drowsiness , dry and urinary retention Recurrent acute sinusitis 556024305 J01.91 likely related to cellcept useconside r ENT evaluation if not improving Atopic dermatitis 343300 01 L20.9 severe persistent failed dupixent and Adbryon cellcept 1 g per day with good result Psoriasis 8927897 L40.9 on Otezla Chronic rhinitis 2487374 6 J31.0 negative environmen rajiv allergy testing [id number] SHAHEEN TRAMMELL MD [address] [address] 09/25/2024 08:12:52 09/25/2024 09:08:02 Atopic dermatitis 51260494 L20.89 L40.0 L40.50 Z79.69 See 10/2022 note [...] her shu for bx to r/o DH [id number] SHAHEEN TRAMMELL MD [address] [address] 11/07/2024 14:47:10 11/07/2024 15:43:37 Atopic dermatitis 50845944 L20.89 L40.0 L40.50 Z79.69 See 10/2022 note [...] DH Long-term current use of drug therapy 492229127 Z79.899 Z32.02 L20.89 L40.0 L40.50 [id number] Rinvoqis a ELGIN inhibitor oral medication that is used to treat atopic dermatitis and rheumatoid arthritis. Warnings include, but are not limited to, serious infection, increased risk of (in those 50 and older with at least 1 heart disease risk factor), major cardiovasc ular events like [place] and CVA, cancers (especiall y if a [...] dered 09/2024 and pt had drawn at [facility]. We did not receive results; labs shown [...] PA for Rinvoq once labs are back [id number] SHAHEEN TRAMMELL MD [address] [address] 12/12/2024 14:48:38 12/12/2024 16:02:00 Atopic dermatitis 02251532 L20.89 L40.0 L40.50 Z79.69 See 10/2022 note [...] DH Long-term current use of drug therapy 813943621 Z79.899 Z32.02 L20.89 L40.0 L40.50 [id number] Rinvoqis a ELGIN inhibitor oral medication that is used to treat atopic dermatitis and rheumatoid arthritis. Warnings include, but are not limited to, serious infection, increased risk of (in those 50 and older with at least 1 heart disease risk factor), major cardiovasc ular events like [place] and CVA, cancers (especiall y if a [...] dered 09/2024 and pt had drawn at [facility]. We did not receive results; labs shown [...] 15mg qd disp 30 1R (pending labs) [id number] SHAHEEN TRAMMELL MD [address] [address] 02/05/2025 15:52:43 02/06/2025 05:04:04 Atopic dermatitis 44965034 L20.89 L40.0 L40.50 Z79.69 See 10/2022 note for full history Doing great on Rinvoq. Started noticing improvemen t in 3 days. May have DH component due to new celiac dx and reported R knee rash (flares intermitte ntly, not present today). BSA: 0% (decreased from 4%) She stopped [...] DH Long-term current use of drug therapy 023919845 Z79.899 Z32.02 L20.89 L40.0 L40.50 [id number] Rinvoqis a ELGIN inhibitor oral medication that is used to treat atopic dermatitis and rheumatoid arthritis. Warnings include, but are not limited to, serious infection, increased risk of (in those 50 and older with at least 1 heart disease risk factor), major cardiovasc ular events like [place] and CVA, cancers (especiall y if a [...] dered 09/2024 and pt had drawn at [facility]. We did not receive results; labs shown on pts phone today (photos in today's chart). Received some labs/not all. Hepatitis panel - negQTB-Gol d - negHIV1/2 - negCMP, Lipid panel, and CBC w/ Diff. WNL 11/09/24 4 weeks:CBC with diff, LFTsWNL 12/12/2024WB C slightly low at 4.0 12 weeks:CBC with diff, LFTs, and lipid panel.Orde red 02/05/25 Then every 3-4 months thereafter :CBC with diff, LFTs, and lipid panel Yearly QuantiFERO N Gold 2 sample bottles of Rinvoq given 10/28/24 to last 28 days. Pt was approved for Rinvoq and has received Rx. Pt will call in 1-2 weeks if they have not heard regarding labsWill refill Rinvoq 15 mg qday, Disp 30, 2R pending labs (See above for dosing) [id number] SHAHEEN TRAMMELL MD [address] [address] 05/07/2025 15:26:12 05/07/2025 16:32:46 Atopic dermatitis 04471861 L20.89 L40.0 L40.50 Z79.69 See 10/2022 note [...] DH Long-term current use of drug therapy [id number] Z79.899 Z32.02 L20.89 L40.0 L40.50 [id number] Rinvoqis a ELGIN inhibitor oral medication that is used to treat atopic dermatitis and rheumatoid arthritis. Warnings include, but are not limited to, serious infection, increased risk of (in those 50 and older with at least 1 heart disease risk factor), major cardiovasc ular events like [place] and CVA, cancers (especiall y if a [...] dered 09/2024 and pt had drawn at [facility]. We did not receive results; labs shown [...] Member ID Parsons Member ID Guarantor Name 02/25/2025 PAYMENT PLAN Kristin Galindo 05/04/2025 1 [employer] [id number] Kristin Galindo [id number] Kristin Galindo Notes Date Note Type Note Provider Name and Address Organization Details Recorded Time 09/25/2024 text/html Patient is here for Atopic [...] test results Pt is accompanied by SHAHEEN TRAMMELL MD [address] [place], [address], [facility] 09/25/2024 12:20:08 11/07/2024 text/html Patient is here [...] refills of fluocinonidePt is accompanied by SHAHEEN TRAMMELL MD [address] [place] [address], [phone], [facility] 11/07/2024 19:45:49 12/12/2024 text/html Patient is here [...] very happy with treatment SHAHEEN TRAMMELL MD [address] [place] [address], [address], [facility] 12/17/2024 20:36:51 02/05/2025 text/html Patient is here for Atopic Dermatitis8 week (12 weeks Rinvoq total) - location: hands, knees, back, stomach - treatments tried in past: Cellcept, heliocare, calcium, vitamin d - currently using: Rinvoq - hot, tender joints, stiffness in joints lasting longer than an hour, or pain in the Achilles tendon? No - reports: treatments helping, has Celiac - unsure if Rinvoq could be making stomach issues worse but it's more of a recent development SHAHEEN TRAMMELL MD [address] [place] [address], [address], [facility] 02/05/2025 17:20:05 05/07/2025 text/html Pt is here for atopic derm f/u - Location: L elbow- Duration: 3 mo f/u- Previous Tx: Cellcept, heliocare, calcium, vitamin D- Current Treatments: Rinvoq- Reports: noticed a few dry spots but thinks it could be related to colder weather. Otherwise doing well. SHAHEEN TRAMMELL MD [address] [place], [address], [facility] 05/07/2025 16:43:17 OBGyn Episode No OBEpisode recorded.
--- OUTSIDE RECORDS SUMMARY | 2025-05-31 16:46 | XMS_ITS | Patient Health Record ---
Author Organization [facility] Address [address] [place] [address] Care Team Providers Care Germ Drier Name Role Phone Jasbir Garrison Primary Care Provider Margaret Amor [phone] Allergies No Known Allergies Reason For Referral [...] Nonsmoker Encounters Encounter Location Date Provider Diagnosis [address] [address] 12/04/2024 Margaret Palomo Abrasion foot/toe S90.819A Assessments [...] Coverage Start Date Coverage End Date [facility] [address] [place] [address] [id number] Kristin Galindo Self - patient is the insured Medical (General) History Medical History History ICD Code lupus eczema psoriasis celiac Surgical History Surgery Date(Month/Year) tubal ligation Hospitalization History Reason Date(Month/Year) see above
[2025-05-31 17:24] LABS: Hematocrit 42.4 % (37.0-47.0); Hemoglobin 13.7 g/dL (12.2-16.2); Immature Granulocytes % 0.4 %; Mean Corpuscular HGB Conc 32.3 g/dL (31.8-35.4); Mean Corpuscular Hemoglobin 30.7 pg (27.0-31.2); Mean Corpuscular Volume 95.1 fl (81-99); Nucleated Red Blood Cells % 0 %; Platelet Count 278 K/mm3 (142-424); Red Blood Count 4.46 M/mm3 (4.20-5.40); Red Cell Distribution Width-SD 44.9 fL; White Blood Count 5.6 K/mm3 (4.8-10.8)
[2025-05-31 18:51] LABS: Alanine Aminotransferase 30 U/L (12-78); Aspartate Amino Transferase 39 U/L (14-36); Cholesterol 148 mg/dl (140-200); HDL Cholesterol 75 mg/dl (40-60); Triglycerides 79 mg/dl (30-150)
== END 2025-05-31 23:59 | disposition home or self-care (01) ==
LOC: LAB 16:43
PROVIDERS: PCP Family Medicine; Visit Provider Dermatology
DX: L40.0 Psoriasis vulgaris (principal)
CPT/HCPCS: 36415; 80061; 84450; 84460; 85025

== ENCOUNTER 2025-06-14 11:03 | Outpatient (CLI) | payer BC, SELFPAY ==
[2025-06-14 08:47] VITALS: BMI 27.9
--- NOTE | 2025-06-14 11:09 | ECG_ITS ---
APPROVED REPORT Exam: Resting ECG HR:88 bpm ECG Measurements Heart Rate 88 AXES AL 141 P 58 QRSd 81 QRS 58 QT 351 T 39 QTc 397 Conclusion SINUS RHYTHM NORMAL ECG UNCONFIRMED REPORT Electronically signed by : Crispin Marks MD 06/15/2025 08:41:35
[2025-06-14 11:44] LABS: Hematocrit 39.9 % (37.0-47.0); Hemoglobin 13.5 g/dL (12.2-16.2); Immature Granulocytes % 0.3 %; Mean Corpuscular HGB Conc 33.8 g/dL (31.8-35.4); Mean Corpuscular Hemoglobin 31.1 pg (27.0-31.2); Mean Corpuscular Volume 91.9 fl (81-99); Nucleated Red Blood Cells % 0 %; Platelet Count 294 K/mm3 (142-424); Red Blood Count 4.34 M/mm3 (4.20-5.40); Red Cell Distribution Width-SD 42.8 fL; White Blood Count 4.0 K/mm3 (4.8-10.8)
[2025-06-14 11:49] LABS: Albumin Level 4.5 g/dl (3.5-5.0); Chloride 105 mmol/L (98-107); Sodium 137 mmol/L (136-145)
[2025-06-14 11:50] LABS: Potassium 4.2 mmoL/L (3.5-5.1)
[2025-06-14 11:52] LABS: Alanine Aminotransferase 32 U/L (12-78); Albumin/Globulin Ratio 1.5 (1.1-1.8); Alkaline Phosphatase 40 U/L (38-126); Anion Gap 14.2 mEq/L (5-15); Aspartate Amino Transferase 34 U/L (14-36); Bilirubin,Total 0.5 mg/dl (0.2-1.3); Blood Urea Nitrogen 9 mg/dl (7-17); Carbon Dioxide 22 mmol/L (22.0-30.0); Creatinine Clearance Estimated 164 mL/min (50-200); Creatinine,Serum 0.60 mg/dl (0.52-1.04); Estimated Glomerular Filt Rate 111 ml/min (>60); GFR (African American) 134 ML/MIN (>60); Globulin 3.1 g/dL (1.3-3.2); Total Protein,Serum 7.6 g/dl (6.3-8.2)
[2025-06-14 11:53] LABS: Calcium 8.9 mg/dl (8.4-10.2); Glucose 79 mg/dl (74-100)
== END 2025-06-14 23:59 | disposition home or self-care (01) ==
LOC: PREOP 11:05
PROVIDERS: PCP Family Medicine; Visit Provider Obstetrics & Gynecology
DX: Z01.810 Encounter for preprocedural cardiovascular examination (principal); Z01.812 Encounter for preprocedural laboratory examination
CPT/HCPCS: 80053; 84702; 85025; 93005

== ENCOUNTER 2025-06-19 08:39 | Day surgery (SDC) | payer BC, SELFPAY ==
[2025-06-14 14:09] VITALS: BMI 27.9
[2025-06-19] VITALS (15 sets, daily range): BP systolic 110–124; BP diastolic 64–79; PULSE 68–82; RESP 14–18; TEMP 36.1–36.8; O2SAT 96–100
[2025-06-19] MEDS: GABAPENTIN 600MG TABLET 600 MG PO (09:29)
[2025-06-19] MEDS: ACETAMINOPHEN 500MG TAB 1000 MG PO (09:30)
[2025-06-19] MEDS: CELECOXIB 100MG CAPSULE 400 MG PO (09:31)
[2025-06-19] MEDS: SCOPOLAMINE 1.5MG/72HRS PATCH 1 EACH TD (09:38)
[2025-06-19] MEDS: LACTATED RINGERS 1000ML 1,000 ML 25 ML IV (09:39)
--- NOTE | 2025-06-19 09:53 | EXP.ANES.CKL ---
[facility] Disclaimer: The information contained in this section may have been updated after the patient was seen, as this information can be updated by other users. Medical History Celiac disease Breast cancer screening by mammogram Post endometrial ablation syndrome Abnormal uterine bleeding (AUB) Decreased libido Hormonal disorder Unexplained weight gain Encounter for routine gynecological examination Psoriasis Eczema Irritable bowel syndrome (IBS) History of anemia Surgical History History of endoscopy H/O tubal ligation History of endometrial ablation History of section History of breast biopsy Family History Other Family history of Crohn's disease Family history of lupus Social History Smoking Status: Former smoker tobacco type: cigarettes packs per day: 1 and e-cigarettes second hand exposure: Yes alcohol intake: current alcohol intake frequency: holidays/special occasions only substance use type: denies use current occupational status: employed Travel in the last 8 weeks?: Outside the [facility] household members: family current occupational exposures/hazards: No caffeine: Yes Have you lived/traveled outside [place] in past 30 days?: No Contact w/someone who lives/traveled outside US past 30 days?: No Exposure to someone with infectious disease in past 14 days?: No Do you have a fever (greater than 100.4 F or 38 C)?: No Have you tested positive for COVID-19?: No Exposed to someone with COVID-19 in past 14 days?: No Do you have a sore throat?: No Do you have a cough?: No Do you have any weakness?: No Do you have any diarrhea?: No Are you experiencing any unusual bleeding?: No Do you have any muscle aches/pain?: No Do you have any abdominal pain?: No Are you experiencing loss of taste or smell?: No [facility] Anesthesia Checklist Patient Identification Patient Identification: Arm Band Structural Data Admitted From: Home Planned Operative Procedure/s: [facility] Consent for Planned Operative Procedure(s) Verified: Yes Verified Documents: Surgical Consent and History and Physical NPO Status Verified Time NPO: 00:00 Additional verifications Anesthesia Reactions: No Hx Blood Transfusions: No Blood Transfusion Reaction: No Airway Assessment Mallampati Score:: Class II C-Spine Mobility Assessed: Yes TMJ Mobility Assessed: Yes Dentition: Good Dentition Neurological Assessment Level of Consciousness: Awake, Alert and Appropriate Anesthesia Plan Anesthesia Risk discussed: Yes Anesthesia Plan: Verified ASA Class: II Anesthesia Type: General
[2025-06-19] MEDS: METHYLENE BLUE 0.5% 10ML AMPULE 50 MG IV (11:08)
[2025-06-19] MEDS: WATER FOR IRRIGATION,STERILE 3,000 ML 25 ML IR (11:08)
[2025-06-19] MEDS: LIDOCAINE 1% W/EPI 1:100,000 20ML VIAL 20 ML ×2 (11:08→11:45)
--- NOTE | 2025-06-19 13:39 | P.PNANES_ITS ---
[facility] Anesthesia Record Part I Anesthesia Record I Intake, IV Amount: 850 Hydration: Adequate Estimated blood loss (mL): 15 Urine output (mL): 0 Blood Products used (#): none Blood Pressure: 118/71 SaO2: 96 Pulse Rate: 82 Airway Patency: Patent Respiratory Rate: 14 Temperature: 97.5 F Patient is:: Drowsy and Stable Stable to PACU at:: 13:30
--- NOTE | 2025-06-19 13:46 | EXP.HP ---
History of Present Illness *Admission Date: 06/19/25 *Reason for visit:: Hysterectomy *History of present illness: America Galindo is a 40-year-old who presents with her significant other today for a laparoscopic assisted vaginal hysterectomy and cystoscopy. HPI from preop appointment: On her visit today she reports significant stress urinary incontinence. Reports that it primarily only occurs with cough laugh or sneeze but that it is full flooding every time multiple times a day. Denies any mixed picture incontinence, urge urgency incontinence. -Postoperatively she would like to discuss weight gain and a phentermine trial - She has tried Vyleesi but states that she took the injection went to sleep afterwards and the second time she took the injection and was on the cruise and felt too nauseous. She is looking forward to giving it a try again - She is currently using BuSpar and is sleeping very well - She is also doing OCPs in continuous fashion and it is working very well as well Previous HPI: review her labs and ultrasound. She reports that recently she has had significant right hip and back pain and that nothing has been helpful. Patient also complains of significant hot flashes, night sweats, mood changes, irritability, weight increases, and decreased libido. Denies any tobacco, significant alcohol, or illicit drug use. - Patient has several complaints today primarily concerned with decreased libido, hormonal changes, 25 pound weight gain, hot flashes, difficulty with orgasm, and brain fog. Requesting hormonal lab evaluation - She has a history of an endometrial ablation - She had a mammogram 12/10/2022 and is followed by general surgery for breast abnormalities - Her Pap smear is up-to-date from 08/17/2023 and she denies abnormal Pap smears - Patient denies any tobacco use, she stopped in 2021. Reports weekly alcohol use and denies any illicit drug use [facility] Disclaimer: The information contained in this section may have been updated after the patient was seen, as this information can be updated by other users. Medical History (Updated 06/19/25 @ 13:49 by America Teixeira DO) Celiac disease Breast cancer screening by mammogram Post endometrial ablation syndrome Abnormal uterine bleeding (AUB) Decreased libido Hormonal disorder Unexplained weight gain Encounter for routine gynecological examination Psoriasis Eczema Irritable bowel syndrome (IBS) History of anemia Surgical History History of endoscopy H/O tubal ligation History of endometrial ablation History of section History of breast biopsy Family History Other Family history of Crohn's disease Family history of lupus Social History Smoking Status: Former smoker tobacco type: cigarettes packs per day: 1 and e-cigarettes second hand exposure: Yes alcohol intake: current alcohol intake frequency: holidays/special occasions only substance use type: denies use current occupational status: employed Travel in the last 8 weeks?: Outside the [facility] household members: family current occupational exposures/hazards: No caffeine: Yes Have you lived/traveled outside [place] in past 30 days?: No Contact w/someone who lives/traveled outside US past 30 days?: No Exposure to someone with infectious disease in past 14 days?: No Do you have a fever (greater than 100.4 F or 38 C)?: No Have you tested positive for COVID-19?: No Exposed to someone with COVID-19 in past 14 days?: No Do you have a sore throat?: No Do you have a cough?: No Do you have any weakness?: No Do you have any diarrhea?: No Are you experiencing any unusual bleeding?: No Do you have any muscle aches/pain?: No Do you have any abdominal pain?: No Are you experiencing loss of taste or smell?: No Other Medical History Have you received the Flu Vaccine for this season: Yes Have you received the Pneumonia Vaccine: No Review of Systems Review of Systems Review of systems (narrative): See HPI. Reports fatigue, weakness, weight gain, decreased libido, hot flashes, difficulty with orgasm, brain fog, hormonal changes, AUB. complains of MELVIN Meds Home Medications and Allergies Home Medications ?Medication ?Instructions ?Recorded ?Confirmed ?Type upadacitinib 15 mg tablet,extended 15 mg PO DAILY 02/21/25 06/19/25 History release 24 hr (Rinvoq) buspirone 5 mg tablet 5 mg PO BID 04/05/25 06/19/25 History norgestimate 0.25 mg-ethinyl 1 tab PO DAILY #84 tabs 05/01/25 06/19/25 Rx estradiol 0.035 mg tablet (Sprintec (28)) prucalopride 2 mg tablet 2 mg PO DAILY 06/14/25 06/19/25 History (Motegrity) New Prescriptions to Start Prescriptions: Allergies Allergy/AdvReac Type Severity Reaction Status Date / Time No Known Allergies Allergy Verified 06/19/25 09:16 Exam Data for Last 24 hours Vital signs and Labs for Last 24 Hours: Temp Pulse Resp BP Pulse Ox O2 Del Method 97.5 F L 82 14 118/71 100 Room Air 06/19/25 13:42 06/19/25 13:42 06/19/25 13:42 06/19/25 13:42 06/19/25 09:18 06/19/25 09:18 I & O for Last 24 hours: Intake & Output 06/16/25 06/17/25 06/18/25 06/19/25 23:59 23:59 23:59 23:59 Intake Total 950 / 950 Balance 950 / 950 Narrative: Const: healthy appearing, NAD, well developed/nourished Resp: Normal respiratory effort, no audible wheezing, symmetric chest rise Cardio: Regular rate GI: Abdomen soft, non-tender, non-distended. no guarding : Patient had a very strong cough stress test. She has a hypermobile urethra. No significant support defects noted Skin: No rash or visible lesion Neuro:No focal deficits Extrem: No visible deformity Psych: Normal mood and demeanor Constitutional Constitutional: no acute distress *Routine HEENT Exam Head: Present normocephalic Eye: Present EOMI and PERRL ENT: Present mucous membranes moist *Routine Neck Exam Neck: Present supple; Absent lymphadenopathy *Routine Respiratory Exam Respiratory: Present CTA bilaterally *Routine Cardiovascular Exam Cardiovascular: Present RRR *Routine Abdominal Exam Abdominal: Present soft and normoactive bowel sounds; Absent tenderness *Routine Rectal Exam Rectal:: deferred *Routine Genitalia Exam Genitalia:: deferred *Routine Extremities Exam Extremities: Absent cyanosis, clubbing or edema *Routine Skin Exam Skin: Present warm; Absent rash *Routine Neurological Exam Neurological: Present alert and oriented X3 Assessment and Plan *Assessment and plan (1) MELVIN (stress urinary incontinence, female): Status: Acute Category: Medical Code(s): N39.3 - Stress incontinence (female) (male) (2) Depression: Status: Acute Category: Medical Code(s): F32.A - Depression, unspecified (3) Hot flashes: Status: Acute Category: Medical Code(s): R23.2 - Flushing (4) Decreased libido without sexual dysfunction: Status: Acute Category: Medical Code(s): R68.82 - Decreased libido (5) Pelvic pain: Status: Acute Category: Medical Code(s): R10.20 - Pelvic and perineal pain unspecified side (6) Abnormal uterine bleeding (AUB): Status: Acute Category: Medical Code(s): N93.9 - Abnormal uterine and vaginal bleeding, unspecified Plan No contraindications to estrogen therapy. Start extended cycle OCPs the patient is doing very well with this Patient is currently taking Rinvoq from her clinical research scientist for eczema. This is an immune modulator/suppressant. She will stop this for 2 days prior to surgery as the half-life is around 14 hours. This will allow improved healing. It also is contraindicated if there is an infection so we will discontinue it for 2 weeks postoperatively during the immediate postoperative timeframe. She also cannot take any NSAIDs while taking this medication so we will discontinue it so that she can take ibuprofen Elected to proceed with laparoscopic-assisted vaginal hysterectomy, removal of tubal remnants, and cystoscopy. Discussed recovery time and recommended time off work following hysterectomy -The patient is requesting definitive surgical management with hysterectomy. -Diagnosis: Abnormal uterine bleeding, heavy uterine bleeding, dysmenorrhea, dyspareunia, post ablative tubal syndrome -Reviewed the risks of major gynecologic surgery with the pt to include bleeding, infection and risk of damage to surrounding structures. I assessed the patient's understanding from her last visit and she was able to review most of the risk that I reviewed with her at the last visit. She thoroughly understands the risk of hysterectomy. Discussed risks of Hemorrhage requiring life saving blood transfusion that carries a risk of viral infection was explained to the pt and she consented to transfusion if deemed medically necessary. Discussed risks of infection, and the use of antibiotics for infection ppx. Discussed risks of injury to the surrounding structures to include her bowel, bladder, ureters, and neurovascular bundles. Discussed that this could require further surgeries and prolong recovery and hospital stay. Discussed risk of fistula formation. She voiced understanding of all risks. I ensured she understood with teachback method of risks. -Pap smear: 02/26/2025: Negative for intraepithelial lesion or malignancy. Transformation zone present. Negative HPV. -Endometrial biopsy: Not obtainable secondary to history of an ablation. Patient understands -CBC, test, type and screen ordered. -Infection prophylactic antibiotics ordered: Ancef 2g and metronidazole -Reviewed with the pt the risk that hysterectomy would not alleviate her pelvic pain. Pt voiced understanding of the risks and consented to hysterectomy. -Postoperative course reviewed with the patient: Anticipate DC home the same day after meeting all DC criteria, including pain is well controlled, N/V controlled, tolerating PO and voiding. Discussed overnight stay if not meeting this criteria. - Her transvaginal ultrasound showed changes consistent with post ablation syndrome. There were 2 areas of fluid collection and a follow-up in 2 to 3 months was suggested. They were also noted to have cystic areas within the uterus which may have been indicative of adenomyosis. The right ovary had features consistent with ovulatory ovaries indicating a recent ovulation most likely occurred. The right ovary also had a calcified area and it measuring just under a centimeter. The left ovary appeared normal
--- NOTE | 2025-06-19 13:55 | P.OP_ITS ---
Date of procedure: 06/19/25 Pre-op Diagnosis:: 1. Pelvic pain 2. Abnormal bleeding 3. History of a tubal ligation 4. History of endometrial ablation 5. Suspect post ablation tubal syndrome Post-op Diagnosis:: 1. Pelvic pain 2. Abnormal bleeding 3. History of a tubal ligation 4. History of endometrial ablation 5. Suspect post ablation tubal syndrome Procedure performed:: 1. Laparoscopic assisted vaginal hysterectomy 2. Bilateral salpingectomy 3. Story culdoplasty 4. Cystoscopy Surgeon:: America Teixeira DO Unindentured Apprentice(s):: Charlie Wright MD IMAGING CLERK:: Domenic Varma Anesthesia: GETA Estimated blood loss (mL): 100 Operative findings:: Uterine EUA was significant for 8wk size uterus with regular borders at the fundus. Stage II apical descent was appreciated. No gross adnexal masses were appreciated. Laparoscopic exam revealed normal anatomy.? Dense adhesions from the bladder to the lower uterine segment. No ovarian masses noted. No bowel injuries on entry. Cystoscopy revealed brisk flow from both ureters Operative note:: Pt was taken back to the OR where GETA was obtained without difficulty. SCDs were placed and found to be working. The patient was placed in dorsal lithotomy position using yellow fin stirrups. The vagina and abdomen was prepped and draped in the normal sterile fashion. An in and out catheter was used to drain the bladder and methylene blue was instilled. Weighted speculum was inserted into the vagina to visualize the cervix. A single tooth tenaculum was used to grasp the anterior lip of the cervix and an acorn uterine manipulator was placed. Top gloves were removed and attention was turned to the abdominal portion.? Local anesthetic with epinephrine was injected infraumbilically, an 11mm infraumbilical incision was made sharply. Direct entry into the abdominal cavity was obtained with laparoscopic visualization. A intraabdominal pressure of 6mmHg was observed and CO2 gas was insufflated to create a pneumoperitoneum to a pressure of 15mmHg. The patient was placed in Trendelenburg to facilitate moving the bowel out of the operative field. A second 11mm incision was made to the left, lateral to the rectus muscles with attention to avoid vasculature. Trocar introduced under direct visualization. This process was repeated on the right. Brief abdominal exam revealed normal anatomy as described above. The ureters were identified bilaterally. The left round ligament was identified and elevated. The LigaSure was used to clamp, coagulate, and transect the round ligament followed by hemostatically transecting the utero-ovarian ligament. The anterior and posterior leaflet of the broad ligament was on the left and the posterior leaflet was carried down for dissection to the uterosacral lig aments. The anterior leaflet was carefully skeletonized as there were dense adhesions of the bladder to the left. Hand catheter was placed and the bladder was backfilled to carefully delineate where the bladder should be dissected from the lower uterine segment. The LigaSure was used without coagulation to carefully dissect the bladder from the uterus. The bladder was backfilled several times and noted to be intact without leakage. The contralateral round ligament was grasped, coagulated, and transected followed by the utero-ovarian ligament. The anterior and posterior leaflet of the broad ligament were and the dissection was carried down to the level of the cervix. The uterine artery was identified and a hemostatic clip was placed x 2. The LigaSure was used to continue to work down the cervix. This process was repeated on the contralateral left side. The uterus is noted to ilene. The fallopian tubes were grasped individually fully identified and removed in a seri al fashion with the LigaSure. The bilateral fallopian tubes were removed and sent to pathology for further evaluation. Attention was turned vaginally, a weighted speculum and Kelly retractor were u sed to identify the cervix. Two Gutierrez tenaculums were used to grasp the anterior and posterior lip of the cervix. 20mL of a solution made up of 0.5% Marcaine with epinephrine injected circumferentially around the cervix. Outward traction was applied to the cervix and a scalpel was used to make a circumferential colpotomy at the cervicovaginal junction. The incision was carried down to the paracervical fascia allowing the cervix to separate from the vaginal mucosa.? Pickeduarda and Laboy scissors were used to initiate and complete dissection into the posterior colpotomy. A long weighted Joanie speculum was placed in the posterior colpotomy. The uterosacral ligaments were grasped with Glener clamps, cut and suture ligated bilaterally. These were tagged to be incorporated into the vaginal cuff at a later time. At this time the bladder was still a little too scarred to make an anterior colpotomy. A Slime clamp was used to slide off the uterus, remaining proximal, clamp, cut and tied with 0 Vicryl the remaining attachments of the cardinal ligaments along with the lower branches of the uterine vessels were clamped, and suture-ligated bilaterally.?Attention was turned to the anterior edge, and a Glener clamp was used to slide around the uterus and clamped and the translucent peritoneum connecting the uterus and bladder. Laboy's were used to transect this area and the uterus was noted to be free and delivered from the vagina to be sent to pathology for further evaluation. This clamp was suture-ligated with a 0 Vicryl stitch. The vaginal vault, cuff, and pedicles were inspected and noted to be hemostatic. A moist lap sponge was placed vaginally to retract the bowel. The posterior peritoneum was fixed to the posterior vaginal cuff with a running locking stitch. 0-PDS was used to place a Story stitch for the culdoplasty, incorporating the bilateral uterosacral ligaments. The anterior peritoneum was unable to be located and therefore the peritoneum was not closed in a pur sestring fashion. The vaginal cuff was then closed with 0 Vicryl in a running locking fashion. Story culdoplasty was tied to suspend the apex of the vagina. Hemostasis was noted. After changing gloves, the pneumoperitoneum was reestablished, laparoscope was placed and inspection of the cuff. Irrigation of the surgical site and suction reveal hemostasis, images obtained. Brief abdominal survey revealed a normal appearing liver and abdomen. Pedicals and cuff reinspected there was 1 small area in the midline that had a very very slow trickle, hemostatic clip was placed and hemostasis was noted. Surgicel powder was applied over the operative incision for added prophylaxis. Abdominal incisions were closed with subcuticular 4-0 Monocryl and Dermabond was placed over the incision. Cystoscopy: The patient was removed from Trendelenburg. A 70degree cystoscope was inserted into the urethra. The bladder was distended with sterile water. The camacho of the bladder were inspected and noted to be intact, free of any sutures, gross masses or abnormal vasculature. Air bubble was noted at the dome of the bladder. Ureteral flow was immediately noted bilaterally. Sponge, instrument and needle counts were correct x3, per nursing. Condition: stable Disposition: same day Specimens:: Uterine body, cervix, bilateral fallopian tubes Complications:: None
[2025-06-19] MEDS: ONDANSETRON 4MG/2ML VIAL 4 MG IV (14:00)
[2025-06-19] MEDS: KETOROLAC 30MG/ML VIAL 30 MG IV (14:01)
--- NOTE | 2025-06-19 15:02 | EXP.ANES.II ---
[facility] Anesthesia Record Part II Anesthesia Record Part II Discharge Time: 14:10 Destination: Obstetric PACU nurse assessment reviewed?: Yes Patient Condition:: Good Anesthesia Complications:: None Swallowing reflex intact?: Yes Airway Patency: Patent Cyanosis?: No Blood Pressure: 124/72 SaO2: 98 Respiratory Rate: 15 Pulse Rate: 76 Temperature: 98.2 F Mental Status: Alert & Oriented Pain level:: 0 Nausea and/or vomitting:: None Intake, IV Amount: 0 Hydration: Adequate
[2025-06-19] MEDS: PROMETHAZINE HCL 25MG/ML 1ML VIAL 12.5 MG IV (16:07)
--- NOTE | 2025-06-19 16:51 | SUR.PHASEII ---
during post op recovery time, patient had c/o pain 9/10 on 0-10 leather [address] and nausea. Dr[address] Teixeira was contacted regarding these complaints, informed Dr. Teixeira that patient was instructed to eat something to help with taking the oxycodone (provided per clinic pharmacy). patient reported she would try but was afraid of keeping it down. patient was able to drink diet pepsi upon arrival to post op but concerns for oral intake at this time. Dr. Teixeira provided V.O. for 12..5 mg of phenergan IV one time dose and instructed for patient to drink sprite. patient was given the phenergan IV and patient also took oxycodone provided per clinic pharmacy. upon discharge patient reported pain was tolerable. prior to discharge patient was able to ambulate to and from bathroom and tolerated well. patient also voided. urine noted with scant amount of bloody drainage per patient and report.
== END 2025-06-19 16:29 | disposition home or self-care (01) ==
PROVIDERS: PCP Family Medicine; Visit Provider Obstetrics & Gynecology
PROC: 0UT9FZZ Resection of Uterus, Via Natural or Artificial Opening With Percutaneous Endoscopic Assistance (ICD-10-PCS; CPT 58552; principal; 2025-06-19 10:30)
DX: D25.9 Leiomyoma of uterus, unspecified (principal); D26.0 Other benign neoplasm of cervix uteri; N83.8 Other noninflammatory disorders of ovary, fallopian tube and broad ligament; K66.0 Peritoneal adhesions (postprocedural) (postinfection); N39.3 Stress incontinence (female) (male); F32.A Depression, unspecified; N93.9 Abnormal uterine and vaginal bleeding, unspecified; Z98.51 Tubal ligation status; Z98.890 Other specified postprocedural states; Z87.891 Personal history of nicotine dependence; Z79.3 Long term (current) use of hormonal contraceptives; Z79.69 Long term (current) use of other immunomodulators and immunosuppressants
CPT/HCPCS: 58552; 96374; J0690; J1885; J2003; J2004; J2250; J2405; J2550; J2704; J2795; J3010; J7120

== ENCOUNTER 2025-07-04 20:19 | Emergency (ER) | payer BC, SELFPAY ==
--- OUTSIDE RECORDS SUMMARY | 2024-06-04 10:30 | XMS_ITS ---
Author Organization [facility] Address [facility]10 [facility] [address] [phone] Care Team Providers Care Asphalt Still Operator Name Role Phone Mario Daniels Primary Care Provider [phone] Chiquis Starr Unavailable [phone] Allergies Allergen (clinical drug ingredient) Drug/Non Drug Allergy documented on EMR Reaction Allergy Type Onset Date Status triamcinolone Triamcinolone rash Drug Allergy Active Results Component Value Reference Range Notes Complete Metabolic Profile Reviewed date:06/11/2024 09:14:34 AM Interpretation: Performing Lab: Notes/Report: CBC Fingerstick (in house) Reviewed date:06/04/2024 07:28:45 PM Interpretation: Performing Lab: Notes/Report: wbc 4.9 3.5 - 10 lym 26.6 15 - 50 mid 6.1 2 - 15 gran 67.3 35 - 80 rbc 5.03 3.5 - 5.5 hgb 13.8 11.5 - 16.5 hct 43.8 35 - 55 mcv 87.1 75 - 100 mch 27.5 25 - 35 mchc 31.6 31 - 38 plat 263 100 - 400 TSH+Free T4 Reviewed date:06/11/2024 09:14:44 AM Interpretation: Performing Lab: Notes/Report: Diarrhea Panel ([facility]) Reviewed date:06/11/2024 09:14:55 AM Interpretation: Performing Lab: Notes/Report: Reason For Referral Diagnosis 1 Abdominal pain (R10. 9) Referral Organization Rich Referring Provider First Name Chiquis Referring Provider Last Name Ro Referring Provider Speciality Family Pra ctice Referred Provider [place]O BOURGEOIS Referred Provider Specialty Gastroentero logy General Notes Chiquis Starr 5:23:14 PM > diarrhea for 1 month; on derm meds, CellCept and Otezla which may be cause; Dermatology wishes her to continue these med; diarrhea panel and labs are pending, Irene Martins 06/05/2024 8:40:26 AM > sent referral to Dr. Bourgeois office Referral Priority Routine REASON FOR VISIT stomach issues Medications Medication SIG (Take, Route, Frequency, Duration) Notes Start Date End Date Status Hyoscyamine Sulfate 0.125 MG 1 tablet as needed Orally Four times a day 06/04/2024 Active Otezla 30 MG 1 tablet Orally Twic e a day; Duration: 30 day(s) Active CellCept 250 MG 4 caps daily A ctive Vital Signs Blood pressure systolic 104 mm Hg 06/04/20 24 Blood pressure diastolic 68 mm Hg 024 Heart Rate 85 /min 06/04/2024 Height 67.50 in 06/04/2024 Weight 162.2 lbs 06/04/2024 BMI 25.03 kg/m2 06/04/2024 Encounters Encounter Location Date Provider Diagnosis [facility] [address] [place], [place] [phone] 06/04/2024 Chiquis Starr Abdominal pain R10.9 ; Diarrhea R19.7 and Eczema, unspecified type L30.9 Assessments Encounter Date Diagnosis (ICD Code) Assessment Notes Treatment Notes Treatment Clinical Notes Section Notes 06/04/2024 Abdominal pain (ICD-10 - R10.9) GI consult; suggested blnd diet and no Pop 06/04/2024 Diarrhea (ICD-10 - R19.7) will try levsin to see if this decreases diarrhea 06/04/2024 Eczema, unspecified type (ICD-10 - L30.9) Plan Of Treatment Medication Medication Name Sig Start Date Stop Date Notes Hyoscyamine Sulfate 0.125 MG 1 tablet as needed Orally Four times a day 06/04/2024 Treatment Notes Assessment Notes Abdominal pain GI consult; suggeste d blnd diet and no Pop Diarrhea will try levsin to s ee if this decreases diarrhea Referrals Referral Date Details 06/04/2024 06/04/2024, [place]O MOULTON Next Appt Details Follow Up: will notify of te st results,and prn, Reason: Progress Notes * Kristin DONOHUE ADOB: (40 yo F)Acc No.[id number]:06/04/2024 Progress Notes Patient: Kristin GUAMAN Provider: ANYI Chapman :1985 A ge:39 Y S ex:Female Date:06/04/2024 Address:[address] [place] [address] Pcp:Mario Daniels Subjective: * Chief Complaints: * 1 . Stomach issues. * HPI: G astroenterology: 39 year old female presents with c/o Dysphagia. c/o Abdominal Pain l ower abd. c/o Diarrhea P t is here today for c/o stomach issues. Pt sts the otezla and CellCept and sts that together they are immunosuppressants and sts she is having stomach issues. Pt sts every time she gets up she has diarrhea and sts she is unsure if it is from the medication or what is causing it. c/o Abdominal Distension t aking gas pills. c/o Belching. Denies : Acid Reflux. D enies : Heartburn. D enies : Nausea. D enies : Vomiting. D enies : Fever. D enies : Blood in Stool. 3-4 times/day stool with mucous ; diarrhea started in04/2024; saw derma tologist 2 weeks ago and told to see PCP; decrease in appetitie. H PI: reviewed hunting and fishing guide report from [facility] and last Commanding Officer Homicide Squad report from [facility]; neither mention diarrhea as an issue. * ROS: D ERMATOLOGY: no R maricruz. [...] Hospitalization/Major Diagno stic Procedure: C hild - [facility] 10/25/2003, Child - [facility] 12/03/2005, Child - [facility] 09/29/2012. * Family History: F ather: [...] ,Years: , Determination:. * Medications: T aking Otezla 30 MG Tablet 1 tablet Orally Twice a day , Taking CellCept 250 MG Capsule 4 caps daily , Medication List reviewed and reconciled with the patient * Allergies: T riamcinolone: rash - Side Effects. Objective: * Vitals: W t:162.2, Temp:98.7, BP:104/68, HR:85, O2 Sat:99% on RA, Nurse:DAT, Ht: 67.50, BMI:25.03. * Examination: G eneral Examination: General Appearance: NAD, appears healthy, alert, pleasant. H eart: RRR. L ungs: CTAB A&P. A bdomen: bowel sounds present, soft; tender left mid to lower quads, no organomegaly or masses, no guarding or rigidity. N eurologic Exam: alert and oriented. E xtremities: no leg edema. Assessment: * Assessment: 1. A bdominal pain - R10.9 (Primary) 2 . D iarrhea - R19.7 3 . E czema, unspecified type - L30.9 Plan: * Treatment: Value Reference Range w bc 4.9 3.5 - 10 * l ym 26.6 15 - 50 * m id 6.1 2 - 15 * g ran 67.3 35 - 80 * r bc 5.03 3.5 - 5.5 * h gb 13.8 11.5 - 16.5 * h ct 43.8 35 - 55 * m cv 87.1 75 - 100 * m ch 27.5 25 - 35 * m chc 31.6 31 - 38 * p lat 263 100 - 400 * Ariella Glass 06/04/2024 5:05 :38 PM > Provider reviewed results while patient in office.Chiquis Starr 06/04/2024 7:28:43 PM > ?LAB: Complete Metabolic Profile (Collection Date & Time - 06/11/2024)* see duplicate order ?LAB: TSH+Free T4 (Collection Date & Time - 06/11/2024)* see duplicate order Notes: GI consult; suggested blnd diet and no Pop? Referral To:[place]O BOURGEOIS??Gastroenterology ?Reason: 2.?Diarrhea?LAB: Diarrhea Panel ([facility]) (Collection Date & Time - 06/11/2024)* see duplicate order Notes: will try levsin to see if this decreases diarrhea?? * Procedure Codes: 9 [address] [place], [address] CAPILLARY BLOOD DRAW, 66194 CBC WITH AUTO DIFF * Follow Up: w ill notify of test results,and prn * Images: Billing Information: * Visit Code: 35674 Office Visit, Est Pt., Level 4. * Procedure Codes: [address] [place] [address] CAPILLARY BLOOD DRAW. 14370 CBC WITH AUTO DIFF. * Electronic signature of Kaley Starr APRN on 07/04/2025 at 08:54 PM EST Sign off status: Pending * Provider: ANYI Chapman Date: 08/04/2023 Generated for Annette gonsalez/Jessica/eTziasmitting on: 09/04/2024 08:54 PM EST History and Physical Notes * HPI (History of Present Illness) Category Sub-Category Detail Notes Category Not es Gastroenterology Fever 3-4 times/d ay stool with mucous ; diarrhea started in04/2024; saw homer tologist 2 weeks ago and told to see PCP; decrease in appetitie Vomiting Abdominal Pain lower abd Diarrhea Pt is here today for c/o stomach issues. Pt sts the otezla and CellCept and sts that together they are immunosuppressants and sts she is having stomach issues. Pt sts every time she gets up she has diarrhea and sts she is unsure if it is from the medication or what is causing it Blood in Stool Nausea Abdominal Distension taking gas pills Heartburn Dysphagia Acid Reflux Belching HPI reviewed allerg ist report from [facility] and last Commanding Officer Homicide Squad report from [facility]; neither mention diarrhea as an issue Examination Category Sub-Category Detail Notes Category Not es General Examination Heart: RRR Lungs: CTAB A&P Abdomen: bowel sounds present , soft; tender left mid to lower quads, no organomegaly or masses, no guarding or rigidity Extremities: no leg edema General Appearance: NAD, appears healthy , alert, pleasant Neurologic Exam: alert and oriented Consultation Request Notes Referral Date Referring Provider Referred Provider Not es 06/04/2024 Chiquis Starr [place]
[2025-07-04 20:26] VITALS: BP 108/80; PULSE 119; RESP 18; TEMP 37; O2SAT 98; BMI 28.1
--- NOTE | 2025-07-04 20:40 | CT_ITS ---
PROCEDURE INFORMATION: Exam: CT Abdomen And Pelvis With Contrast Exam date and time: 07/04/2025 9:31 PM Age: 40 years old Clinical indication: Injury or trauma; Fall; Blunt; Generalized; Injury details: PT fell, popped a stitch, pain now in abd area; Prior surgery; Surgery date: <1 month; Surgery type: Hysterectomy 2 wks ago; Additional info: Trauma S/P hysterectomy. Eval for vag cuff dehisce TECHNIQUE: Imaging protocol: Computed tomography of the abdomen and pelvis with contrast. Radiation optimization: All CT scans at this facility use at least one of these dose optimization techniques: automated exposure control; mA and/or kV adjustment per patient size (includes targeted exams where dose is matched to clinical indication); or iterative reconstruction. Contrast material: ISOVUE; Contrast volume: 75 ml; Contrast route: IV; COMPARISON: US TRANSVAGINAL 04/01/2025 8:12 AM FINDINGS: Lungs: The visualized portions of the lung bases are normal. Liver: In hepatic segment 5 there is a lesion which demonstrates peripheral, discontinuous nodular enhancement which measures 3.9 x 3.2 x 2.6 cm. A subcentimeter hypodensity is seen in the dome of the liver, too small to characterize but likely representing a benign hepatic cyst or hemangioma. Gallbladder and biliary ducts: The gallbladder is normal. Pancreas: See Kidneys and ureters finding. Spleen: The spleen is normal. Adrenal glands: The adrenal glands are normal. Kidneys and ureters: Multiple nonobstructing left renal stones. No hydronephrosis.The pancreas is normal. Stomach and bowel: The stomach is normal. No bowel obstruction. No abnormal bowel wall thickening. Appendix: A normal appendix is identified. Intraperitoneal space: No free air. No pelvic free fluid. Vasculature: Unremarkable. No abdominal aortic aneurysm. Lymph nodes: Unremarkable. No enlarged lymph nodes. Urinary bladder: The bladder is normal. Reproductive: Status post hysterectomy with multiple surgical clips seen in the resection bed. The vaginal cuff appears intact. Bones/joints: Unremarkable. No acute fracture. Soft tissues: Unremarkable. IMPRESSION: 1. No acute traumatic injury or active hemorrhage. 2. Indeterminate liver mass with findings most suggestive of a benign cavernous hemangioma. However, given the single phase nature of the exam, centripetal filling can not be confirmed. If clinically indicated, a dedicated multiphase liver CT or MRI may be performed for definitive characterization.
--- OUTSIDE RECORDS SUMMARY | 2025-07-04 20:53 | XMS_ITS | Continuity of Care Document ---
Author Organization [facility]FFOLK Address [address] [place] [address] Care Team Providers Care Glove Cuffer Name Role Phone SHAHEEN GARCIA Deputy Clerk Of Court SIVAKUMAR GALICIA Primary Care Provider Assessment Encounter Date Assessment Date Assessment LastModified by Organization Details LastModified Time 05/07/2025 05/07/2025 G2211 add-on code: I am providing ongoing care for a single, serious condition or a complex condition that requires ongoing longitudinal care and requires the direction of a practitioner with specialized clinical knowledge, skill, and experience: on ELGIN inhibitor Not available 05/07/2025 16:30:11 Plan of Treatment Reminders Order Date Submit Date Provider Last Modified By Organization Details Last Modified Time Details Appointments DERM WORK-IN PROVIDER APPROVED 2025 10:10A M SHAHEEN TRAMMELL MD Not available Not available Not available Lab CBC w/ diff [address] Location, [address] [place] [address], [address], 06/07/2025 12:13:16 AST/SGOT (aspartat e aminotran sferase), serum or plasma [address] Location, [address] [place] [address], [address], 06/07/2025 12:13:16 ALT (alanine aminotran sferase), serum or plasma [address] Location, [address] [place], [address], 06/07/2025 12:13:16 lipid panel, serum [address] Location, [address] [place], [address], 06/07/2025 12:13:16 Referral None recorded. Procedures None recorded. Surgeries None recorded. Imaging None recorded. Medication Orders None recorded. Patient TargetsNo targets recorded. Patient Instructions Encounter Date Encounter Id Patient Instructions Last Modified By Organization Details Last Modified Time 05/07/2025 [id number] Recommended returning to clinic in 3 months for f/u [email or web address] Not available 05/07/2025 16:28:31 Reason for Referral None Reported. Medical Equipment None Reported. Allergies Allergen ID Allergen Name Allergen Category Reaction Reaction Severity Criticality Documentation Date Start Date Code Code System Note Provider Name and Address Organization Details Recorded Time 615285 triamcino lone medicatio n rash Not available Not available 06/07/2025 72459 RxNorm Not Available codi - External Data Service - prod 12:13:08 Medications Name Sig Start Date Stop Date [...] Tobacco Smoking Status Never Smoker Saba Jones [facility] 11/02/2023 11:41:08 Sunscreen Use? Yes [email or web address] Informatio n not available 12/12/2024 Tanning Bed Use No [email or web address] Informati on not available 12/12/2024 What Was The Date Of Your Most Recent Tobacco Screening? 05/22/2024 [email or web address] Information not available 05/22/2024 Sex: Female Functional Status Question Answer Note LastModified by Organizat ion Details LastModified Time Do you or have you ever used any other forms of tobacco or nicotine? No [email or web address] Information not available 05/22/2024 What is your [...] Y Meningitis N Ulcers N Heart Attack (DC) N Other Skin Condition Y Psychiatric Illness [...] ICD10 Code Diagnosis IMO Codes Diagnosis Note [id number] SHAHEEN TRAMMELL MD [address] [place] [address] 05/07/2025 15:26:12 05/07/2025 16:32:46 Atopic dermatitis 78910134 L20.89 L40.0 L40.50 Z79.69 See 10/2022 note [...] week break, repeat as neededCont inue Rinvoq --------Diane mahoney consider opzelura as well.May consider hand foot unit if not improved Pt will call when knee is flaring and we will get in to see her shu for bx to r/o DH Long-term current use of drug therapy [id number] Z79.899 Z32.02 L20.89 L40.0 L40.50 [id number] Rinvoqis a ELGIN inhibitor oral medication that is used to treat atopic dermatitis and rheumatoid arthritis. Warnings include, but are not limited to, serious infection, increased risk of (in those 50 and older with at least 1 heart disease risk factor), major cardiovasc ular events like DC and CVA, cancers (especiall y if a [...] 09/2024 and pt had drawn at [facility]. We did not receive results; labs [...] Parsons Member ID Guarantor Name 05/07/2025 1 [place] ([place] [id number] 4 Kristin Howard Mateo [id number] 72 [facility] Notes Date Note Type Note Provider Name and Address Organization Details Recorded Time 05/07/2025 text/html Pt is here for atopic derm f/u - Location: L elbow- Duration: 3 mo f/u- Previous Tx: Cellcept, heliocare, calcium, vitamin D- Current Treatments: Rinvoq- Reports: noticed a few dry spots but thinks it could be related to colder weather. Otherwise doing well. SHAHEEN TRAMMELL MD [facility] [place], [address], [facility] 05/07/2025 16:43:17 OBGyn Episode No OBEpisode recorded.
--- OUTSIDE RECORDS SUMMARY | 2025-07-04 20:53 | XMS_ITS | Patient Health Record ---
Author Organization [facility] Address [address] [place] [address] Care Team Providers Care Claims Account Specialist Name Role Phone Jasbir Garrison Primary Care Provider Margaret Amor [phone] Allergies No Known Allergies Reason For Referral [...] Encounters Encounter Location Date Provider Diagnosis [address] [address] 12/04/2024 Margaret Palomo Abrasion foot/toe S90.819A Assessments [...] Coverage Start Date Coverage End Date [facility] [address] [place] [address] [id number] Kristin Galindo Self - patient is the insured Medical (General) History Medical History History ICD Code lupus eczema psoriasis celiac Surgical History Surgery Date(Month/Year) tubal ligation Hospitalization History Reason Date(Month/Year) see above
--- OUTSIDE RECORDS SUMMARY | 2025-07-04 20:54 | XMS_ITS | Clinical Summary ---
Author Organization [facility] Address [address] [place] [address] Care Team Providers Care Supervisor Ship Maintenance Services Name Role Phone Luis Daniels MD Primary [...] tablet by mouth Daily. 30 tablet 2 06/04/2025 2:33 PM EST 5 Active Active Problems Problem Noted Date [...] or ACT mouth rinse. Xylimelts - [employer], [employer]. Welby spray from [facility] for mouth dryness (amazon) Plenty of fluids. If no Asthma or COPD there are two prescriptions available. Evoxac or Pilocarpine. Osteoarthritis of lumbar spine 03/28/2024 Assessment & Plan (03/28/2024 1:03 PM EDT): DDD. S/p L4-5 herniation. S/p 3 surgeries. Currently seeing [facility]. No surgery recommended. Seeing [facility] for treatment of chronic pain. [...] Patient-Stated? Author Specialty Pharmacy General Goal General On track(05/06/20 9:38 AM EDT) No Sun Marrero [facility] Note: A reduction in BSA of skin lesions on the body. Insurance [employer] Care Teams Supervisor Ship Maintenance Services Relationship Specialty Start Date End Date Luis Daniels MD PCP - General Neurology 08/05/16
--- OUTSIDE RECORDS SUMMARY | 2025-07-04 20:54 | XMS_ITS | Data Portability ---
Author Organization [facility] Sergei c, [facility] [place] CLOSED Address [address] [address] [place] [address] Care Team Providers Care High School Biology Teacher Name Role Phone SHAHEEN GARCIA Cooking Show Host SIVAKUMAR GALICIA Primary Care Provider [phone] Assessment Encounter Date Assessment Date Assessment LastModified by Organization Details LastModified Time 05/07/2025 05/07/2025 G2211 add-on code: I am providing ongoing care for a single, serious condition or a complex condition that requires ongoing longitudinal care and requires the direction of a practitioner with specialized clinical knowledge, skill, and experience: on ELGIN inhibitor [email or web address] Not available 05/07/2025 16:30:11 Plan of Treatment Reminders Order Date Submit Date Provider Last Modified By Organization Details Last Modified Time Details Appointments DERM WORK-IN PROVIDER APPROVED 2025 10:10A M SHAHEEN TRAMMELL MD Not available Not available Not available Lab CBC w/ diff [address] Location, [address] [place] [address], [address], 06/07/2025 12:13:16 AST/SGOT (aspartat e aminotran sferase), serum or plasma [address] Location, [address] [place] [address], [address], 06/07/2025 12:13:16 ALT (alanine aminotran sferase), serum or plasma [address] Location, [address] [place], [address], 06/07/2025 12:13:16 lipid panel, serum [address] Location, [address] [place], [address], 06/07/2025 12:13:16 CBC w/ auto diff 2024 025 [facility], [address] [facility] [place], [address], 05/31/2025 21:24:07 AST/SGOT (aspartat e aminotran sferase), serum or plasma 2024 025 [email or web address] [facility], [address], [facility] [place], [address], 02/05/2025 17:17:44 ALT (alanine aminotran sferase), serum or plasma 2024 025 [email or web address] [facility], [address] [facility] [address], [place], [address], 02/05/2025 17:17:44 lipid panel, serum 2024 025 [facility], [address] [facility], [place], [address], 02/09/2025 13:24:31 CBC w/ auto diff 2024 025 [facility], [address] [facility], [facility] [place], [address], 01/08/2025 11:00:38 AST/SGOT (aspartat e aminotran sferase), serum or plasma 2024 025 [email or web address] 3 [facility], [address], [place], [address], 01/14/2025 16:09:26 ALT (alanine aminotran sferase), serum or plasma 2024 025 3 [facility], [address], [place], [address], 01/14/2025 16:09:26 test, urine 2024 025 [place] [address] [facility], [address] [place] [address], [place], [address], 11/07/2024 19:46:10 CBC w/ auto diff 2024 025 [email or web address] 3 [facility], [address], [place], [address], 11/22/2024 17:00:39 CMP, serum or plasma 2024 025 [facility], [address], [place], [address], 11/09/2024 14:04:35 lipid panel, serum 2024 025 [email or web address] 3 [facility], [address], [place], [address], 11/22/2024 17:00:27 CBC w/ auto diff 2024 025 [facility], [address], [place], [address], 11/09/2024 13:25:59 CMP, serum or plasma 2024 025 [email or web address] 3 [facility], [address], [place], [address], 11/21/2024 13:35:58 lipid panel, serum 2024 025 [email or web address] 3 [facility], [address], [address], [place], [address], 11/21/2024 13:36:48 HIV 1 + 2 RNA panel, HERMES+probe , serum or plasma 2024 025 [email or web address] [facility], [address], [address], [place], [address], 11/21/2024 14:35:49 hepatitis panel (A+B+C), acute, serum 2024 025 [email or web address] [facility], [address], [address], [place], [address], 11/21/2024 14:35:49 Mycobacte rium tuberculo sis stimulate d gamma interfero n, qual, blood 2024 025 [email or web address] [facility], [address], [address], [place], [address], 11/21/2024 14:35:50 Referral None recorded. Procedures None recorded. Surgeries None recorded. Imaging None recorded. Medication Orders fluocinon iron 0.05 % topical ointment 2024 025 [facility] [address] [facility], [place], [address], 12/12/2024 15:13:02 Patient TargetsNo targets recorded. Patient Instructions Encounter Date Encounter Id Patient Instructions Last Modified By Organization Details Last Modified Time 09/25/2024 [id number] Will see back in 1 month as scheduled [email or web address] Not available 09/25/2024 09:05:38 12/12/2024 [id number] Follow up as scheduled Not available 12/12/2024 15:19:57 02/05/2025 [id number] Recommended returning to clinic in 3 months for fu as scheduled [email or web address] Not available 02/05/2025 16:57:38 05/07/2025 [id number] Recommended returning to clinic in 3 months for f/u [email or web address] Not available 05/07/2025 16:28:31 Reason for Referral None Reported. Results Created Date Observation Date Name Description Value Unit Range Abnormal Flag Note LastModifiedBy Organization Detail LastModifiedTime 11/08/1911/07/2024 pregn sony test, urine HCG negati ve Not Available [facility] [address] [place], [address], 11/07/2024 15:37:21 11/08/19 25 11/07/2024 pregn sony test, urine Specific [place] [facility] Not Available [facility] [address] [place], [address], 11/07/2024 15:37:21 Result Notes None recorded. Medical Equipment None Reported. Allergies Allergen ID Allergen Name Allergen Category Reaction Reaction Severity Criticality Documentation Date Start Date Code Code System Note Provider Name and Address Organization Details Recorded Time 372122 triamcino lone medicatio n rash Not available Not available 06/07/2025 01940 RxNorm Not Available codi - External Data [...] Last Updated DateTime 12/12/2024 170.18 cm Otilia [facility] 12/12/2024 15:02:15 Social History Question Answer Notes LastModified by Organizat AC [employer] Details LastModified Time Tobacco Smoking Status Never Smoker Saba ferrer, [facility] 11/02/2023 11:41:08 Sunscreen Use? Yes Informatio n not available 12/12/2024 Tanning Bed Use No [email or web address] Informati on not available 12/12/2024 What Was [...] N Hernia N Emphysema N Glaucoma N COPD N Depression N Pneumonia N Nasal or Sinus Problems [...] Y Meningitis N Ulcers N Heart Attack (TN) N Other Skin Condition Y Psychiatric Illness [...] ICD10 Code Diagnosis IMO Codes Diagnosis Note [id number] SHAHEEN TRAMMELL MD [address] [address] 11/02/2023 11:17:30 11/03/2023 04:25:24 Atopic dermatitis 86310185 L20.89 L40.0 L40.50 Z79.69 See 10/2022 note [...] Otezla given today Gave informatio n for [facility] for f/u if not heard regarding rx May consider hand foot unit if not improvedMa y consider ELGIN inhibitor - she stopped smoking in 2021 [id number] SHAHEEN TRAMMELL MD [place] [address] [place] [address] 05/22/2024 07:46:17 05/22/2024 09:00:22 Atopic dermatitis 85765249 L20.89 L40.0 L40.50 Z79.69 See 10/2022 note [...] neededCont inue Otezla qd Will refer to international nurse for full panel food & environmen rajiv allergy testing due to flares with certain foods. She mentioned pineapple as one. No h/o asthma. May consider hand foot unit if not improvedMa y consider ELGIN inhibitor - she stopped smoking in 2021 Cont current course of Cellcept, Otezla, and TAC for now. [id number] HARISH GARCIA MD [facility] [address] [facility] [address] [place] [address] 05/25/2024 07:06:01 05/26/2024 04:08:23 Adverse reaction to food 086336815 T78.1XXA negative food allergy testing discussed food eliminatio n and reintroduc tion strategy Adverse re action to drug 55868228 T50.905A She is on claritin in AM, zyrtec in PM and benadryl 50 mg at nightdiscu ssed side effect of high dose antihistam ine including drowsiness , dry and urinary retention Recurrent acute sinusitis 210887762 J01.91 likely related to cellcept useconside r ENT evaluation if not improving Atopic dermatitis 874322 01 L20.9 severe persistent failed dupixent and Adbryon cellcept 1 g per day with good result Psoriasis 4802994 L40.9 on Otezla Chronic rhinitis 4687182 6 J31.0 negative environmen rajiv allergy testing [id number] SHAHEEN TRAMMELL MD [facility] [address] [place] [address] 09/25/2024 08:12:52 09/25/2024 09:08:02 Atopic dermatitis 10691665 L20.89 L40.0 L40.50 Z79.69 See 10/2022 note [...] her shu for bx to r/o DH [id number] SHAHEEN TRAMMELL MD [address] [address] 11/07/2024 14:47:10 11/07/2024 15:43:37 Atopic dermatitis 45140771 L20.89 L40.0 L40.50 Z79.69 See 10/2022 note [...] 1000mg 2PO BID- one case study showed 07/13 improvemen t after 8 week courseWill refill [...] DH Long-term current use of drug therapy 180608066 Z79.899 Z32.02 L20.89 L40.0 L40.50 [id number] Rinvoqis a ELGIN inhibitor oral medication that is used to treat atopic dermatitis and rheumatoid arthritis. Warnings include, but are not limited to, serious infection, increased risk of (in those 50 and older with at least 1 heart disease risk factor), major cardiovasc ular events like TN and CVA, cancers (especiall y if a [...] dered 09/2024 and pt had drawn at [facility]. We did not receive results; labs [...] PA for Rinvoq once labs are back [id number] SHAHEEN TRAMMELL MD [address] [address] 12/12/2024 14:48:38 12/12/2024 16:02:00 Atopic dermatitis 38911826 L20.89 L40.0 L40.50 Z79.69 See 10/2022 note [...] DH Long-term current use of drug therapy 197287932 Z79.899 Z32.02 L20.89 L40.0 L40.50 [id number] Rinvoqis a ELGIN inhibitor oral medication that is used to treat atopic dermatitis and rheumatoid arthritis. Warnings include, but are not limited to, serious infection, increased risk of (in those 50 and older with at least 1 heart disease risk factor), major cardiovasc ular events like TN and CVA, cancers (especiall y if a [...] dered 09/2024 and pt had drawn at [facility]. We did not receive results; labs [...] 15mg qd disp 30 1R (pending labs) [id number] SHAHEEN TRAMMELL MD [address] [address] 02/05/2025 15:52:43 02/06/2025 05:04:04 Atopic dermatitis 57560194 L20.89 L40.0 L40.50 Z79.69 See 10/2022 note [...] break, repeat as neededCont inue Rinvoq --------Diane y consider opzelura as well.May consider hand foot unit if not improved Pt will call when knee is flaring and we will get in to see her shu for bx to r/o DH Long-term current use of drug therapy 634844021 Z79.899 Z32.02 L20.89 L40.0 L40.50 [id number] Rinvoqis a ELGIN inhibitor oral medication that is used to treat atopic dermatitis and rheumatoid arthritis. Warnings include, but are not limited to, serious infection, increased risk of (in those 50 and older with at least 1 heart disease risk factor), major cardiovasc ular events like TN and CVA, cancers (especiall y if a [...] dered 09/2024 and pt had drawn at [facility]. We did not receive results; labs [...] 2R pending labs (See above for dosing) [id number] SHAHEEN TRAMMELL MD [address] [address] 05/07/2025 15:26:12 05/07/2025 16:32:46 Atopic dermatitis 34200782 L20.89 L40.0 L40.50 Z79.69 See 10/2022 note [...] DH Long-term current use of drug therapy 598901859 Z79.899 Z32.02 L20.89 L40.0 L40.50 [id number] Rinvoqis a ELGIN inhibitor oral medication that is used to treat atopic dermatitis and rheumatoid arthritis. Warnings include, but are not limited to, serious infection, increased risk of (in those 50 and older with at least 1 heart disease risk factor), major cardiovasc ular events like TN and CVA, cancers (especiall y if a [...] dered 09/2024 and pt had drawn at [facility]. We did not receive results; labs [...] 02/25/2025 PAYMENT PLAN Kristin Galindo 05/04/2025 1 [place] (PPO) [id number] 4 Kristin Galindo [id number] Kristin Galindo Notes Date Note Type [...] Pt is accompanied by SHAHEEN TRAMMELL MD [address] [place] [address], [address], [facility] 09/25/2024 12:20:08 11/07/2024 text/html Patient is here [...] fluocinonidePt is accompanied by SHAHEEN TRAMMELL MD [address] [place] [address], [address], [facility] 11/07/2024 19:45:49 12/12/2024 text/html Patient is here [...] very happy with treatment SHAHEEN TRAMMELL MD [address] [place] [address], [address], [facility] 12/17/2024 20:36:51 02/05/2025 text/html Patient is here [...] of a recent development SHAHEEN TRAMMELL MD [facility] [place], [address], [facility] 02/05/2025 17:20:05 05/07/2025 text/html Pt is here for atopic derm f/u - Location: L elbow- Duration: 3 mo f/u- Previous Tx: Cellcept, heliocare, calcium, vitamin D- Current Treatments: Rinvoq- Reports: noticed a few dry spots but thinks it could be related to colder weather. Otherwise doing well. SHAHEEN TRAMMELL MD [facility] [place], [address], [facility] 05/07/2025 16:43:17 OBGyn Episode No OBEpisode recorded.
--- OUTSIDE RECORDS SUMMARY | 2025-07-04 20:54 | XMS_ITS ---
Author Organization [facility] Address [address] [place] [address] Care Team Providers Care City Recorder Name Role Phone Luis Daniels MD Primary Care Provider Dermatology Status:Enrolled (Active) Start date:11/14/2024 Enrollment date:11/14/2024 Enrollment reason:New start at Current support & services provided:Clinical Assessment, Refill Coordination , Benefits Investigation, [facility] Dispensing Linked medications:Upadacitinib (Active) Linked problems:Atopic dermatitis (Active) Case Team Name Relationship Phone Sun Hudson Weight Caller Hotel Custodian Continued Care and Services Coordination
--- OUTSIDE RECORDS SUMMARY | 2025-07-04 20:54 | XMS_ITS | Patient Health Record ---
[facility] Address [address] [id number] Care Team Providers Care Consultant Internship Name Role Phone Mario Daniels Primary Care Provider [phone] Chiquis Starr Unavailable [phone] Allergies Allergen (clinical drug ingredient) Drug/Non Drug Allergy documented on EMR Reaction Allergy Type Onset Date Status triamcinolone Triamcinolone rash Drug Allergy Active Reason For Referral No Information Medications Medication [...] 04/05/2017 Administered xFlu shot- 6months-36 months of wqa-ZKXN-HMXK-trivalent IM Intramuscular 04/17/2012 Administered xFluzone Intradermal (18-64yrs)-trivalent ID Intradermal 04/10/2013 Administered Problems Problem Type SNOMED Code ICD Code Onset Dates Problem Status W/U Status Risk Notes Problem Eczema (27334424) eczema (692.9) Active confirmed Problem Anemia (720145804) Anemia NOS (285.9) Active confirmed Problem Insomnia (483207619) INSOMNIA NOS (780.52) Active confirmed Problem Hypoglycemia (599344117) Hypoglycemia (E16.2) Active confirmed Problem Dysthymia (58485040) Dysthymic disorder (F34.1) Active confirmed Problem Eczema (18152858) Eczema, unspecified type (L30.9) Active confirmed Problem Adjustment disorder with anxious mood (23770665) Adjustment disorder with anxious mood (F43.22) Active confirmed Problem Atopic dermatitis (97846441) Atopic dermatitis, unspecified type (L20.9) Active confirmed Plan Of Treatment No Information Insurance Providers Payer Name Payer Address Payer Phone Subscriber Number Group Number Insured Name Patient Relationship to Insured Coverage Start Date Coverage End Date [employer] [address] [place] [address] [id number] Kristin Galindo Self - patient is the insured Medical (General) History Medical History History ICD Code Eczema, since childhood, followed by [facility] Surgical History Surgery Date(Month/Year) C section 2003 Breast Biopsy x 2 12/12, 02/11 C section 2005 C section 2012 Utrerine Ablation 02/2017 Hospitalization History Reason Date(Month/Year) Child - [facility] 10/25/2003 Child - [facility] 12/03/2005 Child - [facility] 09/29/2012
--- NOTE | 2025-07-04 21:06 | ED_ITS ---
Discharge Plan Disposition Patient Disposition: Home, Self-Care Condition: Good Prescriptions Prescriptions: No Action Rinvoq 15 mg tablet extended release 24 hr 15 mg PO DAILY norgestimate-ethinyl estradiol [Sprintec (28)] 0.25-0.035 mg tablet 1 tab PO DAILY Qty: 84 2RF buspirone 5 mg Tablet 5 mg PO BID acetaminophen 500 mg tablet 500 mg PO Q6H PRN (Reason: fever or pain) Qty: 30 3RF sennosides [Senna Lax] 8.6 mg Tablet 8.6 mg PO BIDP PRN (Reason: Constipation) Qty: 60 2RF ibuprofen 800 mg tablet 800 mg PO Q8H PRN (Reason: pain) Qty: 60 2RF simethicone 125 mg tablet 125 mg PO DAILY PRN (Reason: abdominal distention) Qty: 60 2RF prucalopride [Motegrity] 2 mg tablet 2 mg PO DAILY Rx Instructions: Please take 1 tablet by mouth daily Referrals Follow up/Referrals: Jasbir Garrison MD [Primary Care Provider, Medical] - See instructions Activity Restrictions/Add. Instructions Additional Instructions/Restrictions: Your CT scan showed a likely cavernous hemangioma of the liver, with no acute traumatic injury in the abdomen and no evidence of vaginal cuff dehiscence. I need you to follow up with your primary care doctor for a definitive diagnosis of the liver lesion. Additionally, the glue on your belly incision with dissolve over the next week. You may wash with warm soap and water, but please do not submerge completely under water. If you have any new or worsening symptoms please return. I want you to see Dr. Teixeira in the clinic this upcoming week. Clinical Impressions Clinical Impression: Lesion of liver Fall Qualifiers: Encounter type: initial encounter Qualified Code(s): W19.XXXA - Unspecified fall, initial encounter Abdominal pain Qualifiers: Abdominal location: lower abdomen, unspecified Qualified Code(s): R10.30 - Lower abdominal pain, unspecified Dehiscence of incision Qualifiers: Encounter type: initial encounter Qualified Code(s): T81.31XA - Disruption of external operation (surgical) wound, not elsewhere classified, initial encounter Print Language Print Language: Mohawk Discharge ED Provider: Keon Norris Adult HPI <Mariana Gonzalez, SKID STRAPPER - Last Filed: 07/04/25 21:15> General Chief complaint: PAIN Stated complaint: AO 07/04/251999 broke surgery site open Time Seen by Provider: 07/04/25 20:36 Mode of Arrival: Ambulatory Source of Information: Patient Description of Symptoms (Recalled from ER Triage Doc. by RN): Pt tripped and fell onto her belly and busted open her lap site from her recent hysterectomy on June 12. Complaining of lower abdominal throbbing History of Present Illness HPI narrative: America Galindo is a 40-year-old female who presents emergency room tonight with complaints of a mechanical fall and pain in her lower abdomen. Ms. Galindo just had surgery done by Dr. Teixeira on 06/19. Reports that she fell onto her abdomen this evening after tripping. Fell flat onto the floor, did not fall into anything. Reported significant abdominal pain and tenderness in her lower abdomen. Pain is described as cramping, sharp. Rated at a 5 out of 10 currently. No vaginal bleeding. Incision sites look well approximated, without infection, well-healing. Does not take any blood thinners. Denies any cough, fever, chest pain, shortness of breath. Please note that the above description of symptoms, and this electronic medical record under categorization of recalled from ER triage doctor by RN are reflective of an initial nursing assessment, however, is not reflective of my full history and physical exam that was personally taken and clarified. Consequentially, this proceeding description of symptoms, which may include the patient's cauterized chief complaint in the EMR, do not reflect my personal clin ical impression, and the ultimate description of the history of present illness stated complaints should be deferred to this section of this note. Unless stated otherwise were congruent with the section of the note, additional signs, symptoms, or incongruence can be interpreted as in or accurate with my clinical impression. Related Data Home Medications ?Medication ?Instructions ?Recorded ?Confirmed upadacitinib 15 mg tablet,extended 15 mg PO DAILY 02/0806/19/25 release 24 hr (Rinvoq) Held on 06/19/25. Instructions: Resume on 07/05/25. buspirone 5 mg tablet 5 mg PO BID 04/05/25 5 prucalopride 2 mg tablet 2 mg PO DAILY 06/14/2506/19 (Motegrity) Previous Rx's ?Medication ?Instructions ?Recorded norgestimate 0.25 mg-ethinyl 1 tab PO DAILY #84 tabs 1 estradiol 0.035 mg tablet (Sprintec (28)) acetaminophen 500 mg tablet 500 mg PO Q6H PRN fever or pain 06/19/25 #30 tabs ibuprofen 800 mg tablet 800 mg PO Q8H PRN pain #60 t abs 06/19/25 sennosides 8.6 mg tablet (Senna 8.6 mg PO BIDP PRN Con stipation 06/19/25 Lax) #60 tabs simethicone 125 mg tablet 125 mg PO DAILY PRN abdomina l 06/19/25 distention #60 tabs Allergies Allergy/AdvReac Type Severity Reaction Status Date / Time No Known Allergies Allergy Verified 06/26/25 15:39 [facility] <Mariana Gonzalez APRN - Last Filed: 07/04/25 21:15> [facility] Disclaimer: The information contained in this section may have been updated after the patient was seen, as this information can be updated by other users. Medical History Celiac disease Breast cancer screening by mammogram Post endometrial ablation syndrome Abnormal uterine bleeding (AUB) Decreased libido Hormonal disorder Unexplained weight gain Encounter for routine gynecological examination Psoriasis Eczema Irritable bowel syndrome (IBS) History of anemia Surgical History History of endoscopy H/O tubal ligation History of endometrial ablation History of section History of breast biopsy multiple Family History Other Family history of Crohn's disease Family history of lupus Social History Smoking Status: Never smoker second hand exposure: Yes alcohol intake: current alcohol intake frequency: holidays/special occasions only substance use type: denies use current occupational status: employed Travel in the last 8 weeks?: Outside the [facility] household members: family current occupational exposures/hazards: No caffeine: Yes Have you lived/traveled outside [place] in past 30 days?: No Contact w/someone who lives/traveled outside [place] past 30 days?: No Exposure to someone with infectious disease in past 14 days?: No Do you have a fever (greater than 100.4 F or 38 C)?: No Have you tested positive for COVID-19?: No Exposed to someone with COVID-19 in past 14 days?: No Do you have a sore throat?: No Do you have a cough?: No Do you have any weakness?: No Do you have any diarrhea?: No Are you experiencing any unusual bleeding?: No Do you have any muscle aches/pain?: No Do you have any abdominal pain?: No Are you experiencing loss of taste or smell?: No Other Medical History Have you received the Flu Vaccine for this season: Yes Have you received the Pneumonia Vaccine: No <Mariana Gonzalez APRN - Last Filed: 07/04/25 21:15> ROS Obtained: Yes All systems reviewed & no additional complaints except as documented Physical Exam <Mariana Gonzalez APRN - Last Filed: 07/04/25 21:15> General General appearance: alert and in no apparent distress Head Head exam: atraumatic, normocephalic and normal inspection Eye Eye exam: Present normal appearance, PERRL and EOMI ENT ENT exam: Present normal exam, normal oropharynx, mucous membranes moist, TM's normal bilaterally and normal external ear exam Neck Neck exam: Present normal inspection, full ROM and trachea midline; Absent meningismus or lymphadenopathy Chest Chest inspection: Present normal inspection and symmetric chest wall rise; Absent tenderness Respiratory Respiratory exam: Present normal lung sounds bilaterally; Absent respiratory distress Cardiovascular Cardiovascular exam: Present regular rate and normal rhythm; Absent JVD Abdominal Exam Abdominal exam: Present soft and tenderness (Tender to palpation in the lower abdomen, no peritoneal signs, no guarding) Extremities Exam Extremities exam: Present normal inspection, full ROM and normal capillary refill; Absent calf tenderness Back Exam Back exam: Present normal inspection; Absent tenderness Neurological Exam Neurological exam: Present alert and oriented X3 Psychiatric Psychiatric exam: Present normal affect and normal mood Skin Skin exam: Present warm, dry, intact and normal color Lymphatic Lymphatic Findings: no adenopathy Medical Decision Making <Mariana Gonzalez APRN - Last Filed: 07/04/25 21:15> Medical Records Screening: Per USPSTF and CDC recommendations, given the prevalence of disease in our region, it is our hospital?s policy to screen for HIV and viral Hepatitis for all patients aged 18 and over and those with ongoing risk factors. [place] Inquiry Pt receiving controlled substance: No Vital Signs: 07/04/25 20:26 Temperature 98.6 F Temperature Source Oral Pulse Rate [Right] 119 H Respiratory Rate 18 Blood Pressure [Right Arm] 108/80 L Blood Pressure Mean [Right Arm] 89 Blood Pressure Source [Right Arm] Automatic Cuff Blood Pressure Position [Right Arm] Sitting 02 Sat by Pulse Oximetry 98 Oxygen Delivery Method Room Air Orders (Tests/Meds): ED MEDICATIONS Discontinued Medications Generic Name Dose Route Start Last Admin Trade Name Freq PRN Reason Stop Dose Admin Iopamidol 75 ml 07/04/25 21:38 07/04/25 21:39 Iopamidol-370 (76%);100ml Bottle IV 07/04/25 21:39 75 ml ONCE ONE Administration Sodium Chloride 10 ml 07/04/25 21:38 07/04/25 21:39 Sodium Chloride 0.9% 10ml Syr (Rad Only) IV 07/04/25 21:39 10 ml ONCE ONE Administration ORDERS Category Date Time Status CT abdomen pelvis w con Stat Cat Scan 07/04/25 20:40 Completed Medical Decision Narrative: In summary patient is an 40-year-old female who presents emergency department for evaluation of abdominal pain after a mechanical fall. Patient tripped and fell flat onto her abdomen this evening. No syncopal or presyncope events, no dizziness or lightheadedness. This is purely a trip and fall. Patient just recently had a laparoscopic hysterectomy with Dr. Teixeira on June 19. Reports she was not having any pain prior to the fall, noted immediate tenderness to her lower abdomen after her fall. No vaginal bleeding or discharge. Patient is hemodynamically stable upon arrival, afebrile. Unremarkable nonfocal physical exam except for some mild tender to palpation in her lower abdomen. Patient otherwise nontoxic-appearing. Differential diagnosis includes vaginal cuff tear, retroperitoneal hematoma. Initial workup will be conducted with CT of the abdomen pelvis with contrast. Initial interventions include discussed case with Dr. Teixeira. It was concerning that she would have a vaginal cuff tear at her site surgical site. Care was discussed with Dr. Teixeira to decide whether we should obtain CT imaging versus doing a pelvic exam. Dr. Cerna advised that a CT scan of her abdomen pelvis would fully evaluate whether or not there were any tears or bleeding at the site. Initial workup reviewed by me [hematologic labs remarkable for? Imaging remarkable for? Urinalysis interpreted by me and remarkable for]. Upon repeat evaluation [patient had acceptable resolution of symptoms, had persistent pain for which additional events were conducted (describe interventions), tolerated p.o., was ambulatory, etc.]. Given this [patient is appropriate for discharge at this time will be discharged with a prescription for? The case was discussed with hospital medicine regarding management they will meet the patient in the service for continued evaluation at this time? Etc.] <Keon Norris DO - Last Filed: 07/04/25 23:59> Medical Records Medical records reviewed: Yes I reviewed the patient's medical records. Vital Signs: 07/04/25 20:26 Temperature 98.6 F Temperature Source Oral Pulse Rate [Right] 119 H Respiratory Rate 18 Blood Pressure [Right Arm] 108/80 L Blood Pressure Mean [Right Arm] 89 Blood Pressure Source [Right Arm] Automatic Cuff Blood Pressure Position [Right Arm] Sitting 02 Sat by Pulse Oximetry 98 Oxygen Delivery Method Room Air Orders (Tests/Meds): ED MEDICATIONS Discontinued Medications Generic Name Dose Route Start Last Admin Trade Name Freq PRN Reason Stop Dose Admin Iopamidol 75 ml 07/04/25 21:38 07/04/25 21:39 Iopamidol-370 (76%);100ml Bottle IV 07/04/25 21:39 75 ml ONCE ONE Administration Sodium Chloride 10 ml 07/04/25 21:38 07/04/25 21:39 Sodium Chloride 0.9% 10ml Syr (Rad Only) IV 07/04/25 21:39 10 ml ONCE ONE Administration ORDERS Category Date Time Status CT abdomen pelvis w con Stat Cat Scan 07/04/25 20:40 Completed Medical Decision Narrative: In summary patient is an 40-year-old female who presents emergency department for evaluation of abdominal pain after a mechanical fall. Patient tripped and fell flat onto her abdomen this evening. No syncopal or presyncope events, no dizziness or lightheadedness. This is purely a trip and fall. Patient just recently had a laparoscopic hysterectomy with Dr. Teixeira on June 19. Reports she was not having any pain prior to the fall, noted immediate tenderness to her lower abdomen after her fall. No vaginal bleeding or discharge. Patient is hemodynamically stable upon arrival, afebrile. Unremarkable nonfocal physical exam except for some mild tender to palpation in her lower abdomen. Patient otherwise nontoxic-appearing. Differential diagnosis includes vaginal cuff tear, retroperitoneal hematoma. Initial workup will be conducted with CT of the abdomen pelvis with contrast. Initial interventions include discussed case with Dr. Teixeira. It was concerning that she would have a vaginal cuff tear at her site surgical site. Care was discussed with Dr. Teixeira to decide whether we should obtain CT imaging versus doing a pelvic exam. Dr. Teixeira advised that a CT scan of her abdomen pelvis would fully evaluate whether or not there were any tears or bleeding at the site. [place] attestation This is Dr. Norris. I independently evaluated this patient as well. She had a laparoscopic total abdominal hysterectomy with Dr. Teixeira on June 19. She tells me that this evening she tripped and fell on to a flat concrete service impacting her lower abdomen against the ground. She states that since that time she has been having significant lower abdominal pain. She also notes that the incision about her umbilicus has superficially dehisced. On my examination she has diffuse lower abdominal tenderness to palpation. She is not peritonitic. I also agree with her assessment that there is superficial dehiscence of her periumbilical incision. We ultimately decided to talk to [employer] to determine the utility of a speculum exam here in the emergency department to assess for vaginal cuff dehiscence. When speaking to Dr. Teixeira on the phone I stated that I wanted to obtain a CT scan of the abdomen and pelvis and she said that if the patient had a clinically significant vaginal cuff dehiscence that we would be able to see this on the CT scan as bowel herniation through the vaginal cuff. CT scan ultimately resulted showing no evidence of intra-abdominal pathology or vaginal cuff dehiscence. It did note that she has a incidental finding of a cavernous angioma within the liver. I have informed the patient of her CT scan results and she is reassured. We have discussed the finding of a potential cavernous angioma within the liver and I have strongly vies follow-up with her primary care physician for a definitive diagnosis. She acknowledges understanding of this. I have also thoroughly irrigated the periumbilical incision with saline and repaired this with Dermabond. We will have the patient follow-up in clinic with Dr. Teixeira this upcoming week. At this time all questions have and answered and all parties are agreeable with the decision to discharge Procedures <Keon Norris DO - Last Filed: 07/04/25 23:59> Laceration Laceration 1: Site: other (Periumbilical incision superficial dehiscence) Size (cm): 2 Description: linear and clean Depth: simple, single layer Pre-repair: wound explored, irrigated extensively and deep structures intact Skin layer closed with: Dermabond Critical Care <Keon Norris DO - Last Filed: 07/04/25 23:59> Critical Care Time Critical Care Time: No
[2025-07-04] MEDS: IOPAMIDOL-370 (76%);100ML BOTTLE 75 ML IV (21:39)
[2025-07-04] MEDS: SODIUM CHLORIDE 0.9% 10ML SYR (RAD ONLY) 10 ML IV (21:39)
[2025-07-04 22:00] VITALS: BP 107/59; PULSE 90; O2SAT 98
[2025-07-04 23:00] VITALS: BP 116/68; PULSE 83; O2SAT 98
[2025-07-05 00:02] VITALS: BP 113/71; PULSE 77; RESP 20; TEMP 36.8; O2SAT 99
== END 2025-07-05 00:05 | disposition home or self-care (01) ==
PROVIDERS: Emergency Provider Student in an Organized Health Care Education/Training Program; PCP Family Medicine
DX: K76.9 Liver disease, unspecified (principal); R10.9 Unspecified abdominal pain; T81.31XA Disruption of external operation (surgical) wound, not elsewhere classified, initial encounter; W01.10XA Fall on same level from slipping, tripping and stumbling with subsequent striking against unspecified object, initial encounter; Z90.710 Acquired absence of both cervix and uterus; Z79.899 Other long term (current) drug therapy
CPT/HCPCS: 74177; 99283; 99285; Q9967